=== PATIENT | male | born 1970 | race Caucasian/White ===

== ENCOUNTER 2021-05-26 09:53 | Outpatient (REF) | payer MEDICAID, SELFPAY ==
--- NOTE | ~2021-05-26 | CT_ITS ---
EXAMINATION: CT ABDOMEN WITH CONTRAST CLINICAL INFORMATION: Chronic pancreatitis. Right upper quadrant pain. COMPARISON: None TECHNIQUE: Contiguous axial thin section helical images of the abdomen were performed following the administration of oral contrast and 85 mL of Omnipaque 350 intravenous contrast. The data set was reformatted in the coronal and sagittal planes and reviewed on an independent workstation. This CT examination was performed using dose optimization techniques as appropriate, variously including the following: *Automated exposure control *Adjustment of mA and/or kV according to patient size (this includes techniques or standardized protocols for targeted exams where dose is matched to indication/reason for exam; i.e. extremities or head) *Use of iterative reconstruction technique DLP: 161 mGy-cm FINDINGS: LUNG BASES: Unremarkable LIVER, GALLBLADDER, AND BILIARY TREE: There is a small calcification in the peripheral lateral segment of the left lobe of the liver. The liver is otherwise unremarkable. The gallbladder is unremarkable. There is no biliary duct dilatation. PANCREAS: There is enlargement and edema of the head of the pancreas. There is stranding of the surrounding fat and small amount of fluid. Findings are suggestive of acute pancreatitis. There is a 2.1 cm simple appearing cyst in the neck of the pancreas. This may represent a pseudocyst. The pancreas is otherwise unremarkable. The main pancreatic duct does not appear dilated. SPLEEN: Unremarkable ADRENAL GLANDS AND KIDNEYS: Unremarkable BOWEL LOOPS: There is stool in the colon questionable for constipation. There is mild wall thickening of the duodenum adjacent to the head of the pancreas. This is probably reactive related to pancreatitis. Small and large bowel is otherwise unremarkable. The appendix is unremarkable. LYMPH NODES: Unremarkable VASCULAR: There is an IVC filter. The top of the filter is at the top of the L2 vertebral body above the renal vein. Vascular structures are otherwise unremarkable. The splenic vein is patent. BONES: There is orthopedic hardware seen in the pelvis. CT/CT abdomen w con IMPRESSION: Acute pancreatitis of the head of the pancreas. 2.1 cm cyst in the neck of the pancreas. Normal caliber main pancreatic duct. Findings will be communicated by the [place] work flow manager career Benjie Vázquez.
[2021-05-26] MEDS: iohexoL 350 MG/ML 100 ML INFUS..BTL IV (12:24)
== END 2021-05-26 09:54 | disposition home or self-care (01) ==
LOC: HO.CT 09:53
PROVIDERS: Visit Provider Nurse Practitioner Family
DX: F10.20 Alcohol dependence, uncomplicated (principal); G89.21 Chronic pain due to trauma; K86.0 Alcohol-induced chronic pancreatitis
CPT/HCPCS: 74160; Q9967

== ENCOUNTER 2022-03-17 10:28 | Outpatient (REF) | payer MEDICAID, SELFPAY ==
--- NOTE | ~2022-03-17 | MM_ITS ---
EXAMINATION: BONE DENSITOMETRY CLINICAL INDICATION: Other chronic pancreatitis. COMPARISON: None (current study represents initial baseline exam). TECHNIQUE: Using a [employer] DXA System (software version: 13.1) manufactured by [employer], dual-energy x-ray absorptiometry was performed of the lumbar spine and right hip. The images are of good technical quality. Summary results are attached. FINDINGS: AP SPINE L1-L4: BMD 1.080 g/cm2, Z-score -0.5, T-score -1.2, osteopenia. RIGHT FEMUR, NECK: BMD 0.924 g/cm2, Z-score -0.2, T-score -1.1, osteopenia. RIGHT FEMUR, TOTAL: BMD 0.920 g/cm2, Z-score -0.6, T-score -1.3, osteopenia. IDENTIFIED RISK FACTORS: Height loss, low calcium intake, tobacco use (current smoker). HISTORY OF FRACTURE: None listed. MEDICATIONS: Calcium supplements or multivitamin, vitamin D. MM/XR DEXA axial skeleton IMPRESSION: 1. DIAGNOSIS: Osteopenia based on the lowest T-score value of -1.3 in the total femur applying World Health Organization criteria. 2. 10-YEAR FRACTURE RISK PREDICTION, FRAX: Major osteoporotic fracture (clinical spine, forearm, hip or shoulder) 1.8%. Hip fracture 0.2%. 3. Treatment Recommendations: NOF guidelines recommend consideration for treatment in postmenopausal women and men age 50 and older presenting with the following: -A hip or vertebral (clinical or morphometric) fracture. -T-score less than or equal to -2.5 at the femoral neck or spine after appropriate evaluation to exclude secondary causes. -Low bone mass at the hip or spine and a 10-year fracture probability by FRAX of greater than or equal to 3% for hip fracture or greater than or equal to 20% for major osteoporotic fracture based on the [place] adapted WHO algorithm. 4. Other Recommendations: All treatment decisions require clinical judgment and consideration of individual patient factors, including patient preferences, comorbidities, previous drug use, risk factors not captured in the FRAX model (e.g. frailty, falls, vitamin D deficiency, increased bone turnover, interval significant decline in bone density) and possible under or overestimation of fracture risk by FRAX. Additional medical evaluation for secondary cause of low bone mineral density may be appropriate. FUTURE SCAN RECOMMENDATION: People with diagnosed cases of osteoporosis or at high risk for fracture should have regular bone mineral density tests. For patients eligible for Medicare, routine testing is allowed once every 2 years. The testing frequency can be increased to one year for patients who have rapidly progressing disease, those who are receiving or discontinuing medical therapy to restore bone mass, or have additional risk factors.
== END 2022-03-17 10:29 | disposition home or self-care (01) ==
LOC: HO.MAMMO 10:28
PROVIDERS: PCP Nurse Practitioner Family; Visit Provider Nurse Practitioner Family
DX: Z13.820 Encounter for screening for osteoporosis (principal); K86.1 Other chronic pancreatitis; F17.200 Nicotine dependence, unspecified, uncomplicated
CPT/HCPCS: 77080

== ENCOUNTER 2022-04-21 10:38 | Emergency (ER) | payer MEDICAID, SELFPAY ==
[2022-04-21 11:08] VITALS: BP 134/68; PULSE 63; RESP 18; TEMP 36.4; O2SAT 98; BMI 24.1
[2022-04-21 11:19] LABS: MANUAL DIFF FLAG NO
[2022-04-21 11:21] LABS: Basophils Percent Auto 0.5 % (0-2); Eosinophils Absolute Auto 0.3 X10*3/uL (0.0-0.4); Eosinophils Percent Auto 3.5 % (0-4); Hematocrit 42.4 % (42.0-52.0); Hemoglobin 14.3 g/dl (14.0-18.0); Imm Gran Abs Auto 0.02 X10*3/uL (0.00-0.03); Imm Gran Pct Auto 0.2 % (0.0-0.4); Lymphocytes Absolute Auto 2.8 X10*3/uL (1.2-4.9); Lymphocytes Percent Auto 33.3 % (20-40); Mean Corpuscular HGB Conc 33.7 g/dl (31.0-36.0); Mean Corpuscular Hemoglobin 29.3 pg (27.0-33.0); Mean Corpuscular Volume 86.9 fL (80.0-98.0); Mean Platelet Volume 10.1 fL (9.4-12.4); Monocytes Absolute Auto 0.5 X10*3/uL (0.1-1.2); Monocytes Percent Auto 5.7 % (2-11); Neutrophils Absolute Auto 4.7 x10*3/uL (2.0-8.3); Neutrophils Percent Auto 56.8 % (45-73); Platelet Count 264 X10*3/uL (160-400); Red Blood Count 4.88 X10*6/uL (4.60-5.80); Red Cell Distribution Width 15.9 % (11.0-16.0); White Blood Count 8.3 X10*3/uL (4.8-10.8)
[2022-04-21 11:32] LABS: Appearance Urine Clear; Color Urine Yellow; Glucose Urine UA Negative (Negative); Leukocyte Esterase Urine Negative (Negative); Nitrite Urine Negative (Negative); Urine Blood Negative (Negative); Urine Ketones Negative (Negative); Urine Protein Negative (Neg-Trace)
[2022-04-21 11:41] LABS: Alanine Aminotransferase 13 U/L (0-40); Alkaline Phosphatase 97 U/L (39-117); Anion Gap 13 (12-20); Aspartate Amino Transferase 14 U/L (5-37); Bilirubin Direct 0.2 mg/dL (0.0-0.5); Bilirubin Total 0.5 mg/dL (0.0-1.0); Blood Urea Nitrogen 11 mg/dL (9-16); Calcium 9.1 mg/dL (8.4-10.2); Carbon Dioxide 27 mmol/L (22-29); Chloride 107 mmol/L (96-108); Creatinine Clr Calc Pharmacy 78.4; Estimated Glomerular Filt Rate > 60; Glucose Random 116 mg/dL (60-115); Lipase 249 U/L (8-78); Potassium 4.7 mmol/L (3.3-5.1); Sodium 142 mmol/L (135-145); Total Protein 6.6 g/dL (6.5-8.0)
== END 2022-04-21 15:01 | disposition left against medical advice (07) ==
PROVIDERS: Emergency Provider Emergency Medicine
DX: K85.90 Acute pancreatitis without necrosis or infection, unspecified (principal); Z20.822 Contact with and (suspected) exposure to COVID-19; Z79.899 Other long term (current) drug therapy
CPT/HCPCS: 36415; 80048; 80076; 81003; 83690; 85025; 99282; 99283

== ENCOUNTER 2022-09-29 16:34 | Inpatient (IN) | payer MEDICAID, SELFPAY ==
--- NOTE | ~2022-09-29 | CT_ITS ---
EXAMINATION: CT ABDOMEN AND PELVIS WITH CONTRAST CLINICAL INFORMATION: Multiple large pseudocyst. Evaluate accessibility off pseudocyst for drainage through the stomach. COMPARISON: CT abdomen pelvis without contrast 09/29/2022. TECHNIQUE: Multidetector volumetric images were obtained from the superior aspect of the liver through the pubic symphysis following administration 85 mL of Omnipaque 350 intravenous contrast. Sagittal and coronal reformatted images were obtained on the technologist's workstation. Oral contrast: No This CT examination was performed using dose optimization techniques as appropriate, variously including the following: *Automated exposure control *Adjustment of mA and/or kV according to patient size (this includes techniques or standardized protocols for targeted exams where dose is matched to indication/reason for exam; i.e. extremities or head) *Use of iterative reconstruction technique DLP: 360 mGy-cm. FINDINGS: LUNG BASES: The visualized lung bases are unremarkable. LIVER, GALLBLADDER, AND BILIARY TREE: The liver is normal in size, shape, and attenuation. No focal hepatic lesion or biliary ductal dilatation is present. The gallbladder is unremarkable with no evidence of radiopaque gallstones, gallbladder wall thickening, or obvious pericholecystic inflammatory changes. PANCREAS: Again visualized is analyzed head and neck of the pancreas. There is a large pseudocyst in the neck of the pancreas measuring 5.7 x 6.0 cm on axial image 22/3. This pseudocyst lies posterior to the body of the stomach and a drainable with endoscopy. A second lobulated pseudocyst in the head of the pancreas is stable and a flexible through the second third segment of the duodenum for drainage. There is diffuse calcification in the head and the body of the pancreas suggestive chronic pancreatitis. There are smaller cystic areas seen in the body and the tail of the pancreas better visualized on the present exam with contrast. The pancreas is enlarged with no peripancreatic fat stranding seen to suspect any acute pancreatitis mild thick rind is seen around the pancreas likely old. There is focal pancreatic ductal prominence adjacent to the pseudocyst in the neck of gallbladder on axial image 26/3. SPLEEN: Unremarkable. ADRENAL GLANDS: Unremarkable. KIDNEYS AND URETERS: The kidneys are normal in size, shape, and attenuation. No hydronephrosis, hydroureter, or calculi seen. No perinephric stranding. BLADDER: Unremarkable. GASTROINTESTINAL TRACT: There is scattered stool and oral contrast seen throughout the colon consistent moderate constipation. The small bowel loops are normal caliber. Appendix is not seen. No free air or free fluid seen. ABDOMINAL WALL: No significant hernia is appreciated. LYMPH NODES: Normal. VASCULAR: Unremarkable. PELVIC VISCERA: Unremarkable. OSSEOUS STRUCTURES: There is mild degenerative disc changes with vacuum disc phenomena L5-S1 disc level. No aggressive lytic or sclerotic process seen. There plate and screws for an old healed left pelvic wall fracture. Is lateral CT/CT abdomen pelvis w IV con IMPRESSION: Multiple large pseudocyst in the neck and the head of the pancreas is diffusely accessible via endoscopy through the stomach. Overall no change in the size of the pseudocyst from the last CT. There is a thick rind of tissue around the pancreas with calcification in the body of pancreas suggesting pancreatitis. No evidence of acute pancreatitis. Moderate constipation. Guidelines were followed.
--- NOTE | ~2022-09-29 | CT_ITS ---
EXAMINATION: CT ABDOMEN AND PELVIS WITHOUT CONTRAST CLINICAL INFORMATION: Abdominal pain. COMPARISON: CT abdomen and pelvis 05/26/2021. TECHNIQUE: Multidetector volumetric imaging was performed from the superior aspect of the liver through the pubic symphysis. Sagittal and coronal reformatted images were obtained on the technologist's workstation. This CT examination was performed using dose optimization techniques as appropriate, variously including the following: *Automated exposure control. *Adjustment of mA and/or kV according to patient size (this includes techniques or standardized protocols for targeted exams where dose is matched to indication/reason for exam; i.e. extremities or head). *Use of iterative reconstruction technique. DLP: 362 mGy-cm FINDINGS: LUNG BASES: The lung bases are clear. Heart size is normal. LIVER, GALLBLADDER, AND BILIARY TREE: The liver is normal in size, shape, and attenuation. No focal hepatic lesion or biliary ductal dilatation is present. The gallbladder is unremarkable with no evidence of radiopaque gallstones, gallbladder wall thickening, or obvious pericholecystic inflammatory changes. PANCREAS: There is a large pseudocyst in the neck of the pancreas measuring 5.8 x 6.7 cm and peripheral calcification. There is a second larger pseudocyst in the head of the pancreas measuring 5.3 x 4.7 cm. Smaller exophytic pseudocysts are seen along the head of the pancreas as well. There is scattered calcifications seen throughout the enlarged pancreatic body. No peripancreatic fluid collection or fat stranding seen to suspect superimposed acute pancreatitis. The cyst in the body of the pancreas previously measured 2.1 cm. There is a pseudocyst in the head of the pancreas and small exophytic cyst along its wall are new. Extensive calcification along the pancreatic cyst in the body of the pancreas are also new. SPLEEN: Unremarkable. ADRENAL GLANDS: Unremarkable. KIDNEYS AND URETERS: The kidneys are normal in size, shape, and attenuation. No hydronephrosis, hydroureter, or calculi seen. No perinephric stranding. BLADDER: Unremarkable. GASTROINTESTINAL TRACT: There is mild thickening seen in the second and third segment of the duodenum likely reactionary chronic changes to pancreatic pseudocyst. Underlying dural inflammatory process is not excluded. Rest of the small bowel loops are normal caliber. There is a large amount of stool in the colon. No obstruction, free air or free fluid seen. ABDOMINAL WALL: No significant hernia is appreciated. LYMPH NODES: There are small shotty lymph nodes in the peripancreatic region likely post inflammatory. They measure 1 cm. VASCULAR: There is a infrarenal IVC filter. Abdominal aorta is of normal caliber. No retroperitoneal hematoma noted. PELVIC VISCERA: The prostate gland is enlarged. No free fluid seen. OSSEOUS STRUCTURES: There is an old fracture of the left hemipelvis with hardware. This results in mild deformity of the left hemipelvis, pubic and ischial bones. CT/CT abdomen pelvis wo IV con IMPRESSION: 1. Significant constipation. 2. There are multiple large pseudocysts in the pancreatic head and the neck. Previously seen small 2 cm cyst in the neck of the pancreas has now increased measuring 5.8 cm. There is a larger pseudocyst visualized in the head of the pancreas with small exophytic cyst adjacent to it. Head and the body of the pancreas have increased in size. There are scattered calcifications in the body of the pancreas from chronic pancreatitis. No haziness is seen surrounding the pancreas. I suspect acute pancreatitis. However, correlation with serum amylase is recommended. If patient has increasing pain, an MRI of the pancreas can be performed to exclude acute pancreatitis or underlying pancreatic lesion. 3. Likely post inflammatory peripancreatic lymph nodes. Fleischner guidelines were followed.
[2022-09-29 17:00] VITALS: BP 154/107; PULSE 95; RESP 20; TEMP 36.6; O2SAT 100
--- NOTE | 2022-09-29 17:01 | ED.GENADULT ---
HPI - General Adult General Chief complaint: Abdominal Pain Stated complaint: Abdominal Pain Time Seen by Provider: 09/29/22 22:11 Related Data Home Medications Medication Instructions Recorded Confirmed uxzflebhdo-oaitxpnpiqpes-omdkoxew 1 tab PO Q12H PRN Pain 09/30/22 09/30/22 50 mg-325 mg-40 mg tablet cyclobenzaprine 5 mg tablet 1 tab PO Q8H PRN muscle spasm 09/30/22 09/30/22 gabapentin 400 mg capsule 1 cap PO TID 09/30/22 09/30/22 omeprazole 20 mg capsule,delayed 1 cap PO BID 09/30/22 09/30/22 release Previous Rx's Medication Instructions Recorded docusate sodium 100 mg capsule 200 mg PO DAILY #20 caps 10/03/22 (Colace) crufio-cqxydkdp-tharhbl 1 cap PO TIDWM #60 caps 10/03/22 24,000-76,000-120,000 unit capsule,delayed rel (Creon) magnesium hydroxide 400 mg/5 mL 30 ml PO DAILY PRN Constipation 10/03/22 oral suspension (Milk of Magnesia) #355 mL morphine 4 mg/mL intravenous 4 mg IVPUSH Q4H PRN Pain, Severe 10/03/22 syringe (Pain Scale 7-10) #6 mL polyethylene glycol 3350 17 gram 17 g PO DAILY #30 ea 10/03/22 oral powder packet Allergies Allergy/AdvReac Type Severity Reaction Status Date / Time No Known Allergies Allergy Verified 04/21/22 11:11 [facility] Past Medical History Medical History GERD (gastroesophageal reflux disease) Pancreatitis Social History Social History Household Members: Significant Other Housing: Apartment Do you presently have visiting nurse or other home services: No Alcohol intake: former Patient Tobacco Use Status: Former Tobacco user Tobacco use type: Cigarette e-Cigarette/Vaping Use: Never Used Second Hand Smoke Exposure: No Substance Use Type: Marijuana service: No Current occupational status: disabled Physical Exam ED Vital Signs: Vital Signs - 24 hr 09/29/22 17:00 Temperature 98 F Pulse Rate 95 Respiratory Rate 20 Blood Pressure 154/107 H Pulse Oximetry 100 Oxygen Delivery Method Room Air BMI result Body Mass Index 20.0 Course Course Course Narrative: 52-year-old male presents for evaluation of upper abdominal pain for 2. He reports he had nausea and vomiting earlier but this has since resolved. Reports she has not had any bubbling last 2 weeks but endorses that he continues to pass gas. Denies any history of previous abdominal surgeries. Does endorse a history of previous pancreatitis. He denies any active alcohol abuse. Plan for labs, CT abdomen and pelvis further workup as indicated Medications Administered Discontinued Medications Generic Name Dose Route Start Last Admin Trade Name Rishabh PRN Reason Stop Dose Admin Acetaminophen 650 mg 09/29/22 23:14 10/03/22 16:24 Acetaminophen 325 Mg Tablet PO 650 mg Q6H PRN Administration Pain, Mild (Pain Scale 1-3) Lipase/Protease/Amylase 1 cap 10/02/22 12:00 10/03/22 17:48 Lipase/Prot/Amylase 24/76/120k 1 Cap Capsule.Dr SÁNCHEZ Not Given TIDWM KAT Docusate Sodium 200 mg 10/02/22 21:00 10/02/22 21:08 Docusate Sodium 100 Mg Capsule PO 200 mg BEDTIME KAT Administration Docusate Sodium 100 mg 09/30/22 21:00 10/01/22 21:46 Docusate Sodium 100 Mg Capsule PO 100 mg BEDTIME KAT Administration Enoxaparin Sodium 40 mg 09/29/22 23:15 10/02/22 22:27 Enoxaparin Sodium 40 Mg/0.4 Ml Syringe SUBCUT 40 mg Q24H KAT Administration Gabapentin 400 mg 09/30/22 15:00 10/03/22 19:53 Gabapentin 400 Mg Capsule PO 400 mg TID KAT Administration Hydromorphone HCl 0.5 mg 09/29/22 22:49 09/29/22 23:13 Hydromorphone Hcl 0.5 Mg/0.5 Ml Syringe IVPUSH 09/29/22 22:50 0.5 mg ONCE ONE Administration Protocol Sodium Chloride 1,000 mls @ 999 mls/hr 09/29/22 23:00 09/30/22 16:45 Ns IV 09/30/22 00:00 Infused .Q1H1M KAT Infusion Sodium Chloride 1,000 mls @ 100 mls/hr 09/29/22 23:30 10/02/22 05:46 Ns IVCONT Infused .Q10H KAT Infusion Iohexol 85 ml 10/02/22 15:10 10/02/22 15:10 Iohexol 350 Mg/Ml 100 Ml Infus..Btl IV 10/02/22 15:11 85 ml ONCE ONE Administration Magnesium Hydroxide 30 ml 10/03/22 16:41 10/03/22 17:48 Milk Of Magnesia 30 Ml Oral.Susp PO 10/03/22 16:42 30 ml ONCE ONE Administration Melatonin 6 mg 09/29/22 23:14 10/02/22 21:10 Melatonin 3 Mg Tablet PO 6 mg BEDTIME PRN Administration Insomnia Morphine Sulfate 4 mg 10/03/22 15:32 10/03/22 19:51 Morphine Sulfate 4 Mg/Ml Cartridge IVPUSH 4 mg Q4H PRN Administration Pain, Severe (Pain Scale 7-10) Protocol Morphine Sulfate 4 mg 09/29/22 23:16 10/02/22 10:17 Morphine Sulfate 4 Mg/Ml Cartridge IVPUSH 4 mg Q6H PRN Administration Pain, Severe (Pain Scale 7-10) Protocol Omeprazole 20 mg 09/30/22 16:30 10/03/22 16:21 Omeprazole 20 Mg Capsule.Dr PO 20 mg BID@0630,1630 [facility] Administration Ondansetron HCl 4 mg 09/29/22 23:14 09/30/22 09:46 Ondansetron Hcl 4 Mg/2 Ml Vial IVPUSH 4 mg Q8H PRN Administration Nausea and Vomiting Oxycodone HCl 2.5 mg 10/02/22 15:43 10/02/22 16:29 Oxycodone Hcl Immed Release 5 Mg Tablet PO 2.5 mg Q6H PRN Administration Pain, Severe (Pain Scale 7-10) Oxycodone HCl 5 mg 10/02/22 19:00 10/03/22 04:16 Oxycodone Hcl Immed Release 5 Mg Tablet PO 5 mg Q6H PRN Administration Pain, Severe (Pain Scale 7-10) Oxycodone HCl 10 mg 10/03/22 10:03 10/03/22 14:23 Oxycodone Hcl Immed Release 5 Mg Tablet PO 10 mg Q4H PRN Administration Pain, Severe (Pain Scale 7-10) Polyethylene Glycol 17 gm 10/02/22 15:45 10/03/22 09:33 Polyethylene Glycol 3350 17 Gm Powd.Pack PO Not Given DAILY KAT Sodium Chloride 3 ml 09/30/22 00:00 10/03/22 16:21 0.9 % Sodium Chloride Flush 3 Ml Syringe IVFLUSH 3 ml QSHIFT [facility] Administration Medical Decision Making Lab Data 10/01/22 06:07 10/02/22 06:22 Labs: Lab Results 09/29/22 09/29/22 09/29/22 Range/Units 02:28 18:03 18:03 WBC 11.9 H (4.8-10.8) X10*3/uL RBC 5.09 (4.60-5.80) X10*6/uL Hgb 15.1 (14.0-18.0) g/dl Hct 44.1 (42.0-52.0) % MCV 86.6 (80.0-98.0) fL MCH 29.7 (27.0-33.0) pg MCHC 34.2 (31.0-36.0) g/dl RDW 14.0 (11.0-16.0) % Plt Count 291 (160-400) X10*3/uL MPV 12.6 H (9.4-12.4) fL Immature Gran % (Auto) 0.3 (0.0-0.4) % Neut % (Auto) 68.4 (45-73) % Lymph % (Auto) 22.1 (20-40) % Larue % (Auto) 5.9 (2-11) % Eos % (Auto) 2.9 (0-4) % Baso % (Auto) 0.4 (0-2) % Lymph # (Auto) 2.6 (1.2-4.9) X10*3/uL Larue # (Auto) 0.7 (0.1-1.2) X10*3/uL Eos # (Auto) 0.4 (0.0-0.4) X10*3/uL Baso # (Auto) 0.1 (0.0-0.2) X10*3/uL Abs Immat Gran (auto) 0.04 H (0.00-0.03) X10*3/uL Absolute Neuts (auto) 8.2 (2.0-8.3) x10*3/uL Absolute Nucleated RBC 0.000 (0.0-0.012) X10*3/uL Nucleated RBC % (auto) 0.0 (0.0-0.2) /100WBC Sodium 137 (135-145) mmol/L Potassium 4.3 (3.3-5.1) mmol/L Chloride 99 (96-108) mmol/L Carbon Dioxide 27 (22-29) mmol/L Anion Gap 15 (12-20) BUN 6 L (9-16) mg/dL Creatinine 0.76 (0.5-1.4) mg/dL Estim Creat Clear Calc 89.5 Estimated GFR > 60 Random Glucose 111 (60-115) mg/dL Lactic Acid 0.8 (0.5-2.0) mmol/L Calcium 9.3 (8.4-10.2) mg/dL Magnesium 1.9 (1.6-2.6) mg/dL Total Bilirubin 0.7 (0.0-1.0) mg/dL AST 27 (5-37) U/L ALT 157 H (0-40) U/L Alkaline Phosphatase 324 H (39-117) U/L Total Protein 6.8 (6.5-8.0) g/dL Albumin 3.5 (3.5-5.0) g/dL Triglycerides mg/dL Lipase 463 H (8-78) U/L Urine Color Urine Appearance Urine pH (5.0-9.0) Ur Specific [place] (1.005-1.025) Urine Protein (Neg-Trace) mg/dL Urine Glucose (UA) (Negative) mg/dL Urine Ketones (Negative) mg/dL Urine Blood (Negative) Urine Nitrite (Negative) Ur Leukocyte Esterase (Negative) Urine RBC (0-2) /HPF Urine WBC (0-5) /HPF Ur Squamous Epith Cells (0-2) /HPF Urine Bacteria (None Seen) Hyaline Casts (0-2) /LPF Urine Opiates Screen (Not Detect) Urine Fentanyl Screen (Not Detect) Ur Barbiturates Screen (Not Detect) Ur Phencyclidine Scrn (Not Detect) Ur Amphetamines Screen (Not Detect) U Benzodiazepines Scrn (Not Detect) Urine Cocaine Screen (Not Detect) U Marijuana (THC) Screen (Not Detect) Ethyl Alcohol mg/dL 09/29/22 09/29/22 09/29/22 Range/Units 18:03 22:44 22:44 WBC (4.8-10.8) X10*3/uL RBC (4.60-5.80) X10*6/uL Hgb (14.0-18.0) g/dl Hct (42.0-52.0) % MCV (80.0-98.0) fL MCH (27.0-33.0) pg MCHC (31.0-36.0) g/dl RDW (11.0-16.0) % Plt Count (160-400) X10*3/uL MPV (9.4-12.4) fL Immature Gran % (Auto) (0.0-0.4) % Neut % (Auto) (45-73) % Lymph % (Auto) (20-40) % Larue % (Auto) (2-11) % Eos % (Auto) (0-4) % Baso % (Auto) (0-2) % Lymph # (Auto) (1.2-4.9) X10*3/uL Larue # (Auto) (0.1-1.2) X10*3/uL Eos # (Auto) (0.0-0.4) X10*3/uL Baso # (Auto) (0.0-0.2) X10*3/uL Abs Immat Gran (auto) (0.00-0.03) X10*3/uL Absolute Neuts (auto) (2.0-8.3) x10*3/uL Absolute Nucleated RBC (0.0-0.012) X10*3/uL Nucleated RBC % (auto) (0.0-0.2) /100WBC Sodium (135-145) mmol/L Potassium (3.3-5.1) mmol/L Chloride (96-108) mmol/L Carbon Dioxide (22-29) mmol/L Anion Gap (12-20) BUN (9-16) mg/dL Creatinine (0.5-1.4) mg/dL Estim Creat Clear Calc Estimated GFR Random Glucose (60-115) mg/dL Lactic Acid (0.5-2.0) mmol/L Calcium (8.4-10.2) mg/dL Magnesium (1.6-2.6) mg/dL Total Bilirubin (0.0-1.0) mg/dL AST (5-37) U/L ALT (0-40) U/L Alkaline Phosphatase (39-117) U/L Total Protein (6.5-8.0) g/dL Albumin (3.5-5.0) g/dL Triglycerides 84 mg/dL Lipase (8-78) U/L Urine Color Dark Yellow Urine Appearance Cloudy Urine pH 6.5 (5.0-9.0) Ur Specific [place] 1.025 (1.005-1.025) Urine Protein 30 (1+) H (Neg-Trace) mg/dL Urine Glucose (UA) Negative (Negative) mg/dL Urine Ketones 80 (Negative) mg/dL Urine Blood Negative (Negative) Urine Nitrite Negative (Negative) Ur Leukocyte Esterase Trace H (Negative) Urine RBC 3-5 H (0-2) /HPF Urine WBC 0-5 (0-5) /HPF Ur Squamous Epith Cells 0-2 (0-2) /HPF Urine Bacteria None Seen (None Seen) Hyaline Casts 0-2 (0-2) /LPF Urine Opiates Screen Not Detected (Not Detect) Urine Fentanyl Screen Not Detected (Not Detect) Ur Barbiturates Screen POSITIVE H (Not Detect) Ur Phencyclidine Scrn Not Detected (Not Detect) Ur Amphetamines Screen Not Detected (Not Detect) U Benzodiazepines Scrn Not Detected (Not Detect) Urine Cocaine Screen Not Detected (Not Detect) U Marijuana (THC) Screen POSITIVE H (Not Detect) Ethyl Alcohol < 10 mg/dL Discharge Plan Discharge Clinical Impression: Pancreatitis Patient Disposition: Admitted As Inpatient Interventions: Admission Worksheet (ED) Last Done: 09/30/22 16:23 Discharge Date/Time: 09/30/22 16:23
[2022-09-29 18:13] LABS: MANUAL DIFF FLAG NO
[2022-09-29 18:31] LABS: Lactic Acid 0.8 mmol/L (0.5-2.0)
[2022-09-29 18:35] LABS: Alanine Aminotransferase 157 U/L (0-40); Albumin Level 3.5 g/dL (3.5-5.0); Alkaline Phosphatase 324 U/L (39-117); Anion Gap 15 (12-20); Aspartate Amino Transferase 27 U/L (5-37); Bilirubin Total 0.7 mg/dL (0.0-1.0); Blood Urea Nitrogen 6 mg/dL (9-16); Calcium 9.3 mg/dL (8.4-10.2); Carbon Dioxide 27 mmol/L (22-29); Chloride 99 mmol/L (96-108); Creatinine Clr Calc Pharmacy 89.5; Estimated Glomerular Filt Rate > 60; Ethanol < 10 mg/dL; Glucose Random 111 mg/dL (60-115); Magnesium 1.9 mg/dL (1.6-2.6); Potassium 4.3 mmol/L (3.3-5.1); Sodium 137 mmol/L (135-145); Total Protein 6.8 g/dL (6.5-8.0); Triglycerides 84 mg/dL
[2022-09-29 18:46] LABS: Basophils Absolute Auto 0.1 X10*3/uL (0.0-0.2); Basophils Percent Auto 0.4 % (0-2); Eosinophils Absolute Auto 0.4 X10*3/uL (0.0-0.4); Eosinophils Percent Auto 2.9 % (0-4); Hematocrit 44.1 % (42.0-52.0); Hemoglobin 15.1 g/dl (14.0-18.0); Imm Gran Abs Auto 0.04 X10*3/uL (0.00-0.03); Imm Gran Pct Auto 0.3 % (0.0-0.4); Lymphocytes Absolute Auto 2.6 X10*3/uL (1.2-4.9); Lymphocytes Percent Auto 22.1 % (20-40); Mean Corpuscular HGB Conc 34.2 g/dl (31.0-36.0); Mean Corpuscular Hemoglobin 29.7 pg (27.0-33.0); Mean Corpuscular Volume 86.6 fL (80.0-98.0); Mean Platelet Volume 12.6 fL (9.4-12.4); Monocytes Absolute Auto 0.7 X10*3/uL (0.1-1.2); Monocytes Percent Auto 5.9 % (2-11); Neutrophils Absolute Auto 8.2 x10*3/uL (2.0-8.3); Neutrophils Percent Auto 68.4 % (45-73); Platelet Count 291 X10*3/uL (160-400); Red Blood Count 5.09 X10*6/uL (4.60-5.80); White Blood Count 11.9 X10*3/uL (4.8-10.8)
[2022-09-29 18:48] LABS: Lipase 463 U/L (8-78)
[2022-09-29 21:57] VITALS: BP 145/99; PULSE 91; RESP 16; TEMP 36.7; O2SAT 98
[2022-09-29 22:49] LABS: Appearance Urine Cloudy; Color Urine Dark Yellow; Glucose Urine UA Negative (Negative); Leukocyte Esterase Urine Trace (Negative); Nitrite Urine Negative (Negative); PH 6.5 (5.0-9.0); Specific Gravity - Urine 1.025 (1.005-1.025); UMIC TRIGGER UACC YES; Urine Blood Negative (Negative); Urine Ketones 80 mg/dL (Negative); Urine Protein 30 (1+) mg/dL (Neg-Trace)
[2022-09-29 22:54] LABS: Bacteria Urine None Seen (None Seen); Hyaline Casts Urine 0-2 /LPF (0-2); Squamous Epithelial Cell Urine 0-2 /HPF (0-2); WBC Urine 0-5 /HPF (0-5)
[2022-09-29 23:13] VITALS: RESP 18
[2022-09-29] MEDS: HYDROmorphone HCl 0.5 MG/0.5 ML SYRINGE IVPUSH (23:13)
[2022-09-29] MEDS: 0.9 % Sodium Chloride 1,000 ML 999 ML IV (23:13)
--- NOTE | 2022-09-29 23:17 | P.HPHOSP_ITS ---
History of Present Illness Date of Service: 09/29/22 Chief Complaint: Abdominal Pain This is a 52-year-old male with pertinent history of gastroesophageal reflux disease, history of alcohol induced pancreatitis presents to the emergency department for evaluation of abdominal pain. Patient states he has had epigas tric abdominal pain for about 7-10 days now. It is constant, worse with p.o. intake, no relieving factors, radiating to the sides and associated with nausea. Patient is unable to tolerate any p.o. intake due to nausea and pain. States his last alcohol use was 7 months ago. No fever, chills. Patient denies chest discomfort, palpitations, shortness of breath, changes in urinary or bowel habits. In the emergency department, CT with pseudocyst and concerning for pancreatitis. Lipase was elevated Review of Systems Constitutional: Constitutional: Reports lethargy and Reports malaise Cardiovascular: Cardiovascular: Reports no additional cardiovascular complaints Respiratory: Respiratory: Reports no additional respiratory complaints Gastrointestinal: Gastrointestinal: Reports abdominal pain, Reports nausea and Reports vomiting Genitourinary: Genitourinary: Reports no additional male genitourinary complaints [facility] Medical History GERD (gastroesophageal reflux disease) Pancreatitis Pertinent family history: No family history of CAD Social History Advance Directives: No Advance Directives Information Provided: No Meds Allergies Allergy/AdvReac Type Severity Reaction Status Date / Time No Known Allergies Allergy Verified 04/21/22 11:11 Active Medications: Current Medications Acetaminophen (Acetaminophen 325 Mg Tablet) 650 mg PO Q6H PRN PRN Reason: Pain, Mild (Pain Scale 1-3) Enoxaparin Sodium (Enoxaparin Sodium 40 Mg/0.4 Ml Syringe) 40 mg SUBCUT Q24H KAT Sodium Chloride (Ns) 1,000 mls @ 999 mls/hr IV .Q1H1M KAT Stop: 09/30/22 00:00 Last Admin: 09/29/22 23:13 Dose: 999 mls/hr Melatonin (Melatonin 3 Mg Tablet) 6 mg PO BEDTIME PRN PRN Reason: Insomnia Ondansetron HCl (Ondansetron Hcl 4 Mg/2 Ml Vial) 4 mg IVPUSH Q8H PRN PRN Reason: Nausea and Vomiting Pharmacy Consult (Consult Rx Perform Med Rec) 1 each MISCELLANE ONCE PRN PRN Reason: Consult order Sodium Chloride (0.9 % Sodium Chloride Flush 3 Ml Syringe) 3 ml IVFLUSH QSHIFT COUNT INCLUDES THE [facility] Physical Exam Vital Signs and Narrative: Vital Signs: Last Vital Signs Temp 98.1 F 09/29/22 21:57 Pulse 91 09/29/22 21:57 Resp 18 09/29/22 23:13 BP 145/99 H 09/29/22 21:57 Pulse Ox 98 09/29/22 21:57 O2 Del Method 09/29/22 21:57 BMI result Body Mass Index 20.0 Middle-aged male lying in bed in no distress Neck supple, no JVD Regular rate and rhythm, S1-S2 heard Regular breath sounds bilaterally, no wheezing or crackles appreciated Abdomen with epigastric tenderness, no guarding, no rigidity Patient is awake, alert and oriented to self, place, time and person ; no focal motor deficit Psych: Normal mood No pedal edema Results Labs 09/29/22 02:28 09/29/22 18:03 Labs: Laboratory Results - last 24 hr 09/29/22 09/29/22 09/29/22 02:28 18:03 18:03 MCV 86.6 MCH 29.7 MCHC 34.2 RDW 14.0 Plt Count 291 MPV 12.6 H Immature Gran % (Auto) 0.3 Neut % (Auto) 68.4 Lymph % (Auto) 22.1 Gregory % (Auto) 5.9 Eos % (Auto) 2.9 Baso % (Auto) 0.4 Lymph # (Auto) 2.6 Gregory # (Auto) 0.7 Eos # (Auto) 0.4 Baso # (Auto) 0.1 Abs Immat Gran (auto) 0.04 H Absolute Neuts (auto) 8.2 Absolute Nucleated RBC 0.000 Nucleated RBC % (auto) 0.0 Anion Gap 15 Estim Creat Clear Calc 89.5 Estimated GFR > 60 Random Glucose 111 Lactic Acid 0.8 Calcium 9.3 Magnesium 1.9 Total Bilirubin 0.7 AST 27 ALT 157 H Alkaline Phosphatase 324 H Total Protein 6.8 Albumin 3.5 Triglycerides Lipase 463 H Urine Color Urine Appearance Urine pH Ur Specific [place] Urine Protein Urine Glucose (UA) Urine Ketones Urine Blood Urine Nitrite Ur Leukocyte Esterase Urine RBC Urine WBC Ur Squamous Epith Cells Urine Bacteria Hyaline Casts Ethyl Alcohol 09/29/22 09/29/22 18:03 22:44 MCV MCH MCHC RDW Plt Count MPV Immature Gran % (Auto) Neut % (Auto) Lymph % (Auto) Gregory % (Auto) Eos % (Auto) Baso % (Auto) Lymph # (Auto) Gregory # (Auto) Eos # (Auto) Baso # (Auto) Abs Immat Gran (auto) Absolute Neuts (auto) Absolute Nucleated RBC Nucleated RBC % (auto) Anion Gap Estim Creat Clear Calc Estimated GFR Random Glucose Lactic Acid Calcium Magnesium Total Bilirubin AST ALT Alkaline Phosphatase Total Protein Albumin Triglycerides 84 Lipase Urine Color Dark Yellow Urine Appearance Cloudy Urine pH 6.5 Ur Specific [place] 1.025 Urine Protein 30 (1+) H Urine Glucose (UA) Negative Urine Ketones 80 Urine Blood Negative Urine Nitrite Negative Ur Leukocyte Esterase Trace H Urine RBC 3-5 H Urine WBC 0-5 Ur Squamous Epith Cells 0-2 Urine Bacteria None Seen Hyaline Casts 0-2 Ethyl Alcohol < 10 Imaging Radiologist's Impressions: Impressions Abdomen/Pelvis CT 09/29/22 17:29 IMPRESSION: 1. Significant constipation. 2. There are multiple large pseudocysts in the pancreatic head and the neck. Previously seen small 2 cm cyst in the neck of the pancreas has now increased measuring 5.8 cm. There is a larger pseudocyst visualized in the head of the pancreas with small exophytic cyst adjacent to it. Head and the body of the pancreas have increased in size. There are scattered calcifications in the body of the pancreas from chronic pancreatitis. No haziness is seen surrounding the pancreas. I suspect acute pancreatitis. However, correlation with serum amylase is recommended. If patient has increasing pain, an MRI of the pancreas can be performed to exclude acute pancreatitis or underlying pancreatic lesion. 3. Likely post inflammatory peripancreatic lymph nodes. Fleischner guidelines were followed. Assessment and Plan (1) Pancreatitis: Status: Acute Plan This is a 52-year-old male with pertinent history of gastroesophageal reflux disease, history of alcohol induced pancreatitis presents to the emergency department for evaluation of abdominal pain. #. Acute on chronic pancreatitis with pseudocysts: Continue resuscitation with IV crystalloids. Pain control with IV opioids p.r.n.. Full liquid diet and advance as tolerated. Consulting IR for possible endoscopic drainage of pseudocyst. Triglyceride pending. No gallstones. Obtaining MRI to rule out underlying pancreatic lesion #. GERD: On PPI #. Alcohol use disorder: Patient states he last consumed alcohol about 7 months ago. Ethanol level less than 10. UDS pending Med rec pending DVT prophylaxis: Lovenox 40 mg daily Full code Liquid diet. Advance as tolerated Admit as inpatient and will require two night minimum hospital stay for sandra vargas of acute pancreatitis Time Spent With Patient Time: Total time managing care of this patient today ____ minutes. Quality Stroke Does the patient have a stroke diagnosis?: No VTE Prior VTE?: No VTE Risk Level:: Medical - moderate - high VTE Device Contraindication: Treatment Not Indicated VTE Drug Contraindication: N/A - Med Ordered
--- NOTE | 2022-09-29 23:21 | ED_ITS ---
HPI - Abdominal Pain General Chief Complaint: Abdominal Pain Stated Complaint: Abdominal Pain Time Seen by Provider: 09/29/22 22:11 History of Present Illness HPI narrative: Patient is a 52-year-old male presents today with having abdominal pain. The abdominal pain is diffuse is on ongoing for weeks. Patient denies any nausea vomiting. Positive history of EtOH. Stop drinking 2 years ago. Patient stated that he did not have any nausea vomiting. The pain is somewhat worse with ea ting. Positive passing gas. Patient from home. Positive history of pancreatitis Related Data Allergies Allergy/AdvReac Type Severity Reaction Status Date / Time No Known Allergies Allergy Verified 04/21/22 11:11 Review of Systems Review of Systems Positive abdominal pain Yes all other systems are reviewed and are negative [facility] Past Medical History Attestation statement: The following information was validated with the patient. Social History Social History Advance Directives: No Advance Directives Information Provided: No Physical Exam ED Vital Signs: Vital Signs - 24 hr 09/29/22 17:00 09/29/22 21:57 09/29/22 23:13 Temperature 98 F 98.1 F Pulse Rate 95 91 Respiratory Rate 20 16 18 Blood Pressure 154/107 H 145/99 H Pulse Oximetry 100 98 Oxygen Delivery Method Room Air Room Air BMI result Body Mass Index 20.0 Appearance: Alert. Oriented X3. No acute distress. Eyes: Pupils equal, round and reactive to light. ENT: Pharynx normal. Neck: Normal inspection. Neck supple. No lymph nodes noted. No crepitus CVS: Normal heart rate and rhythm. Pulses normal. Normal S1 and S2 Respiratory: No respiratory distress. Breath sounds normal. No Wheezing. No rales Abdomen: Diffuse abdominal pain. No rigidity. No distention. good BS x4 Skin: Skin warm and dry. Normal skin color. Normal skin turgor. Extremities: No lower extremity edema. Neurovascular intact to all extremities. No Lacerations. No Rash Neuro: Oriented X 3. No motor deficit. No sensory deficit. Moving all extermities. No slurred speech Medical Decision Making Medical Decision Making MDM Narrative: Positive abdominal pain diffuse over the entire abdomen. Differential diagnosis includes abdominal aortic aneurysm, gastritis, constipation, obstruction, abscess, perforation, pancreatitis. Patient's labs showed an elevated lipase that was greater than 3 times normal. Consistent with pancreatitis which patient had in the past. He denies any drinking alcohol. He denies any history of biliary issues. CT scan of the abdomen showed pseudocysts getting worse with signs of pancreatitis likely chronic pancreatitis flare-up. Given pain medication IV fluids. Patient's case discussed with hospitalist team. Will admit patient for further evaluation Differential Diagnosis Differential Diagnoses: The differential diagnosis associated with the presentation includes See above Admission/Observation Consideration of admission/observation: Escalation of care including admission/observation considered Consult Healthcare Provider Management of the patient was discussed with: Hospitalist Lab Data MDM Lab Attestation statement: I reviewed the patient's lab results. 09/29/22 02:28 09/29/22 18:03 Labs: Lab Results 09/29/22 09/29/22 09/29/22 Range/Units 02:28 18:03 18:03 WBC 11.9 H (4.8-10.8) X10*3/uL RBC 5.09 (4.60-5.80) X10*6/uL Hgb 15.1 (14.0-18.0) g/dl Hct 44.1 (42.0-52.0) % MCV 86.6 (80.0-98.0) fL MCH 29.7 (27.0-33.0) pg MCHC 34.2 (31.0-36.0) g/dl RDW 14.0 (11.0-16.0) % Plt Count 291 (160-400) X10*3/uL MPV 12.6 H (9.4-12.4) fL Immature Gran % (Auto) 0.3 (0.0-0.4) % Neut % (Auto) 68.4 (45-73) % Lymph % (Auto) 22.1 (20-40) % [place] % (Auto) 5.9 (2-11) % Eos % (Auto) 2.9 (0-4) % Baso % (Auto) 0.4 (0-2) % Lymph # (Auto) 2.6 (1.2-4.9) X10*3/uL [place] # (Auto) 0.7 (0.1-1.2) X10*3/uL Eos # (Auto) 0.4 (0.0-0.4) X10*3/uL Baso # (Auto) 0.1 (0.0-0.2) X10*3/uL Abs Immat Gran (auto) 0.04 H (0.00-0.03) X10*3/uL Absolute Neuts (auto) 8.2 (2.0-8.3) x10*3/uL Absolute Nucleated RBC 0.000 (0.0-0.012) X10*3/uL Nucleated RBC % (auto) 0.0 (0.0-0.2) /100WBC Sodium 137 (135-145) mmol/L Potassium 4.3 (3.3-5.1) mmol/L Chloride 99 (96-108) mmol/L Carbon Dioxide 27 (22-29) mmol/L Anion Gap 15 (12-20) BUN 6 L (9-16) mg/dL Creatinine 0.76 (0.5-1.4) mg/dL Estim Creat Clear Calc 89.5 Estimated GFR > 60 Random Glucose 111 (60-115) mg/dL Lactic Acid 0.8 (0.5-2.0) mmol/L Calcium 9.3 (8.4-10.2) mg/dL Magnesium 1.9 (1.6-2.6) mg/dL Total Bilirubin 0.7 (0.0-1.0) mg/dL AST 27 (5-37) U/L ALT 157 H (0-40) U/L Alkaline Phosphatase 324 H (39-117) U/L Total Protein 6.8 (6.5-8.0) g/dL Albumin 3.5 (3.5-5.0) g/dL Triglycerides mg/dL Lipase 463 H (8-78) U/L Urine Color Urine Appearance Urine pH (5.0-9.0) Ur Specific Gl[place] (1.005-1.025) Urine Protein (Neg-Trace) mg/dL Urine Glucose (UA) (Negative) mg/dL Urine Ketones (Negative) mg/dL Urine Blood (Negative) Urine Nitrite (Negative) Ur Leukocyte Esterase (Negative) Urine RBC (0-2) /HPF Urine WBC (0-5) /HPF Ur Squamous Epith Cells (0-2) /HPF Urine Bacteria (None Seen) Hyaline Casts (0-2) /LPF Ethyl Alcohol mg/dL 09/29/22 09/29/22 Range/Units 18:03 22:44 WBC (4.8-10.8) X10*3/uL RBC (4.60-5.80) X10*6/uL Hgb (14.0-18.0) g/dl Hct (42.0-52.0) % MCV (80.0-98.0) fL MCH (27.0-33.0) pg MCHC (31.0-36.0) g/dl RDW (11.0-16.0) % Plt Count (160-400) X10*3/uL MPV (9.4-12.4) fL Immature Gran % (Auto) (0.0-0.4) % Neut % (Auto) (45-73) % Lymph % (Auto) (20-40) % [place] % (Auto) (2-11) % Eos % (Auto) (0-4) % Baso % (Auto) (0-2) % Lymph # (Auto) (1.2-4.9) X10*3/uL [place] # (Auto) (0.1-1.2) X10*3/uL Eos # (Auto) (0.0-0.4) X10*3/uL Baso # (Auto) (0.0-0.2) X10*3/uL Abs Immat Gran (auto) (0.00-0.03) X10*3/uL Absolute Neuts (auto) (2.0-8.3) x10*3/uL Absolute Nucleated RBC (0.0-0.012) X10*3/uL Nucleated RBC % (auto) (0.0-0.2) /100WBC Sodium (135-145) mmol/L Potassium (3.3-5.1) mmol/L Chloride (96-108) mmol/L Carbon Dioxide (22-29) mmol/L Anion Gap (12-20) BUN (9-16) mg/dL Creatinine (0.5-1.4) mg/dL Estim Creat Clear Calc Estimated GFR Random Glucose (60-115) mg/dL Lactic Acid (0.5-2.0) mmol/L Calcium (8.4-10.2) mg/dL Magnesium (1.6-2.6) mg/dL Total Bilirubin (0.0-1.0) mg/dL AST (5-37) U/L ALT (0-40) U/L Alkaline Phosphatase (39-117) U/L Total Protein (6.5-8.0) g/dL Albumin (3.5-5.0) g/dL Triglycerides 84 mg/dL Lipase (8-78) U/L Urine Color Dark Yellow Urine Appearance Cloudy Urine pH 6.5 (5.0-9.0) Ur Specific [place] 1.025 (1.005-1.025) Urine Protein 30 (1+) H (Neg-Trace) mg/dL Urine Glucose (UA) Negative (Negative) mg/dL Urine Ketones 80 (Negative) mg/dL Urine Blood Negative (Negative) Urine Nitrite Negative (Negative) Ur Leukocyte Esterase Trace H (Negative) Urine RBC 3-5 H (0-2) /HPF Urine WBC 0-5 (0-5) /HPF Ur Squamous Epith Cells 0-2 (0-2) /HPF Urine Bacteria None Seen (None Seen) Hyaline Casts 0-2 (0-2) /LPF Ethyl Alcohol < 10 mg/dL External Record Review External record reviewed: Inpatient record Prescription Management I considered prescription management with: Pain Medication Chronic Conditions Patient?s care impacted by: Hypertension Social Determinants Patient?s care significantly limited by Social Determinants of Health including: Inadequate housing Medications Administered Generic Name Dose Route Start Last Admin Trade Name Freq PRN Reason Stop Dose Admin Sodium Chloride 1,000 mls @ 999 mls/hr 09/29/22 23:00 09/29/22 23:13 Ns IV 09/30/22 00:00 999 mls/hr .Q1H1M KAT Administration Discontinued Medications Generic Name Dose Route Start Last Admin Trade Name Freq PRN Reason Stop Dose Admin Hydromorphone HCl 0.5 mg 09/29/22 22:49 09/29/22 23:13 Hydromorphone Hcl 0.5 Mg/0.5 Ml Syringe IVPUSH 09/29/22 22:50 0.5 mg ONCE ONE Administration Protocol Discharge Plan Discharge Clinical Impression: Pancreatitis Patient Disposition: Admitted As Inpatient
[2022-09-29 23:28] VITALS: BP 119/76; PULSE 82; RESP 18; TEMP 37.1; O2SAT 97
[2022-09-29] MEDS: 0.9 % Sodium Chloride 1,000 ML 100 ML IVCONT (23:45)
[2022-09-29] MEDS: Enoxaparin Sodium 40 MG/0.4 ML SYRINGE SUBCUT (23:45)
[2022-09-30 01:03] LABS: COVID-19 Test Negative (Negative); IDNOW Serial# 6674DD1D
[2022-09-30 01:04] LABS: Triglycerides 75 mg/dL
[2022-09-30 01:40] LABS: Amphetamine Screen Urine Not Detected (Not Detect); Barbiturates, Urine POSITIVE (Not Detect); Benzodiazepines Screen Urine Not Detected (Not Detect); Cannabinoid Screen Urine POSITIVE (Not Detect); Cocaine Screen Urine Not Detected (Not Detect); Fentanyl, urine Not Detected (Not Detect); Opiate Screen Urine Not Detected (Not Detect); Phencyclidine Screen Urine Not Detected (Not Detect)
[2022-09-30 01:52] VITALS: RESP 16
[2022-09-30] MEDS: ondansetron HCL 4 MG/2 ML VIAL IVPUSH ×2 (01:52→09:46)
[2022-09-30] MEDS: Morphine Sulfate 4 MG/ML CARTRIDGE IVPUSH ×4 (01:52→20:16)
[2022-09-30 06:10] LABS: MANUAL DIFF FLAG NO
[2022-09-30 06:21] LABS: Basophils Absolute Auto 0.1 X10*3/uL (0.0-0.2); Basophils Percent Auto 0.5 % (0-2); Eosinophils Absolute Auto 0.4 X10*3/uL (0.0-0.4); Eosinophils Percent Auto 3.9 % (0-4); Hematocrit 36.1 % (42.0-52.0); Hemoglobin 12.4 g/dl (14.0-18.0); Imm Gran Abs Auto 0.03 X10*3/uL (0.00-0.03); Imm Gran Pct Auto 0.3 % (0.0-0.4); Lymphocytes Absolute Auto 2.8 X10*3/uL (1.2-4.9); Lymphocytes Percent Auto 25.4 % (20-40); Mean Corpuscular HGB Conc 34.3 g/dl (31.0-36.0); Mean Corpuscular Hemoglobin 29.4 pg (27.0-33.0); Mean Corpuscular Volume 85.5 fL (80.0-98.0); Mean Platelet Volume 11.2 fL (9.4-12.4); Monocytes Absolute Auto 0.8 X10*3/uL (0.1-1.2); Neutrophils Absolute Auto 6.9 x10*3/uL (2.0-8.3); Neutrophils Percent Auto 62.9 % (45-73); Platelet Count 410 X10*3/uL (160-400); Red Blood Count 4.22 X10*6/uL (4.60-5.80); Red Cell Distribution Width 14.2 % (11.0-16.0)
[2022-09-30 06:52] LABS: Chloride 104 mmol/L (96-108)
[2022-09-30 06:53] LABS: Anion Gap 14 (12-20); Blood Urea Nitrogen 7 mg/dL (9-16); Calcium 8.1 mg/dL (8.4-10.2); Carbon Dioxide 24 mmol/L (22-29); Creatinine Clr Calc Pharmacy 115.3; Estimated Glomerular Filt Rate > 60; Glucose Random 77 mg/dL (60-115); Potassium 4.2 mmol/L (3.3-5.1); Sodium 138 mmol/L (135-145)
--- NOTE | 2022-09-30 07:23 | P.PNIM_ITS ---
Subjective Subjective Date of Service: 10/01/22 Interval History: being followed for abdominal pain, feeling better with less abdominal discomfort, denies nausea,no vomiting, afraid to eat due to worsening pain, no fevers, no chills, denies recent use of alcohol,no trauma ,no uri sxs, Review of Systems Review of Systems: Yes all other systems are reviewed and are negative Physical Exam Vital Signs: Vital Signs: Last Vital Signs Temp 98.8 F 09/29/22 23:28 Pulse 82 09/29/22 23:28 Resp 16 09/30/22 01:52 BP 119/76 09/29/22 23:28 Pulse Ox 97 09/29/22 23:28 O2 Del Method 09/29/22 23:28 BMI result Body Mass Index 20.0 Const: Other: General awake alert x3, resting comfortably in no acute distress. Neck supple no JVD. CVS regular rate rhythm, Respiratory lungs clear to auscultation, no respiratory distress, no wheeze, no rhonchi. Gastrointestinal epigastric tenderness, bowel sounds audible, no guarding , no rigidity. Extremities no edema. Neuro nonfocal Skin no rash psych appropriate affect Objective Data Active Medications Acetaminophen (Acetaminophen 325 Mg Tablet) 650 mg PO Q6H PRN PRN Reason: Pain, Mild (Pain Scale 1-3) Enoxaparin Sodium (Enoxaparin Sodium 40 Mg/0.4 Ml Syringe) 40 mg SUBCUT Q24H [facility] Last Admin: 09/29/22 23:45 Dose: 40 mg Documented By: ELLE Sodium Chloride (Ns) 1,000 mls @ 100 mls/hr IVCONT .Q10H [facility] Last Admin: 09/29/22 23:45 Dose: 100 mls/hr Documented By: ELLE Melatonin (Melatonin 3 Mg Tablet) 6 mg PO BEDTIME PRN PRN Reason: Insomnia Morphine Sulfate (Morphine Sulfate 4 Mg/Ml Cartridge) 4 mg IVPUSH Q6H PRN; Protocol PRN Reason: Pain, Severe (Pain Scale 7-10) Last Admin: 09/30/22 01:52 Dose: 4 mg Documented By: ELLE Ondansetron HCl (Ondansetron Hcl 4 Mg/2 Ml Vial) 4 mg IVPUSH Q8H PRN PRN Reason: Nausea and Vomiting Last Admin: 09/30/22 01:52 Dose: 4 mg Documented By: ELLE Pharmacy Consult (Consult Rx Perform Med Rec) 1 each MISCELLANE ONCE PRN PRN Reason: Consult order Sodium Chloride (0.9 % Sodium Chloride Flush 3 Ml Syringe) 3 ml IVFLUSH QSHIFT [facility] Last Admin: 09/30/22 00:05 Dose: Not Given Documented By: ELLE Non-Admin Reason: IV Running Labs 09/30/22 05:21 09/30/22 05:21 Labs: Laboratory Results - last 24 hr 09/29/22 09/29/22 09/29/22 02:28 18:03 18:03 MCV 86.6 MCH 29.7 MCHC 34.2 RDW 14.0 Plt Count 291 MPV 12.6 H Immature Gran % (Auto) 0.3 Neut % (Auto) 68.4 Lymph % (Auto) 22.1 [place] % (Auto) 5.9 Eos % (Auto) 2.9 Baso % (Auto) 0.4 Lymph # (Auto) 2.6 [place] # (Auto) 0.7 Eos # (Auto) 0.4 Baso # (Auto) 0.1 Abs Immat Gran (auto) 0.04 H Absolute Neuts (auto) 8.2 Absolute Nucleated RBC 0.000 Nucleated RBC % (auto) 0.0 Anion Gap 15 Estim Creat Clear Calc 89.5 Estimated GFR > 60 Random Glucose 111 Lactic Acid 0.8 Calcium 9.3 Magnesium 1.9 Total Bilirubin 0.7 AST 27 ALT 157 H Alkaline Phosphatase 324 H Total Protein 6.8 Albumin 3.5 Triglycerides Lipase 463 H Urine Color Urine Appearance Urine pH Ur Specific [place] Urine Protein Urine Glucose (UA) Urine Ketones Urine Blood Urine Nitrite Ur Leukocyte Esterase Urine RBC Urine WBC Ur Squamous Epith Cells Urine Bacteria Hyaline Casts Urine Opiates Screen Urine Fentanyl Screen Ur Barbiturates Screen Ur Phencyclidine Scrn Ur Amphetamines Screen U Benzodiazepines Scrn Urine Cocaine Screen U Marijuana (THC) Screen Ethyl Alcohol COVID-19 ([facility]) COVID-19 Clin Com 09/29/22 09/29/22 09/29/22 18:03 22:44 22:44 MCV MCH MCHC RDW Plt Count MPV Immature Gran % (Auto) Neut % (Auto) Lymph % (Auto) [place] % (Auto) Eos % (Auto) Baso % (Auto) Lymph # (Auto) [place] # (Auto) Eos # (Auto) Baso # (Auto) Abs Immat Gran (auto) Absolute Neuts (auto) Absolute Nucleated RBC Nucleated RBC % (auto) Anion Gap Estim Creat Clear Calc Estimated GFR Random Glucose Lactic Acid Calcium Magnesium Total Bilirubin AST ALT Alkaline Phosphatase Total Protein Albumin Triglycerides 84 Lipase Urine Color Dark Yellow Urine Appearance Cloudy Urine pH 6.5 Ur Specific [place] 1.025 Urine Protein 30 (1+) H Urine Glucose (UA) Negative Urine Ketones 80 Urine Blood Negative Urine Nitrite Negative Ur Leukocyte Esterase Trace H Urine RBC 3-5 H Urine WBC 0-5 Ur Squamous Epith Cells 0-2 Urine Bacteria None Seen Hyaline Casts 0-2 Urine Opiates Screen Not Detected Urine Fentanyl Screen Not Detected Ur Barbiturates Screen POSITIVE H Ur Phencyclidine Scrn Not Detected Ur Amphetamines Screen Not Detected U Benzodiazepines Scrn Not Detected Urine Cocaine Screen Not Detected U Marijuana (THC) Screen POSITIVE H Ethyl Alcohol < 10 COVID-19 ([facility]) COVID-19 Clin Com 09/30/22 09/30/22 09/30/22 00:47 00:47 05:21 MCV 85.5 MCH 29.4 MCHC 34.3 RDW 14.2 Plt Count 410 H D MPV 11.2 Immature Gran % (Auto) 0.3 Neut % (Auto) 62.9 Lymph % (Auto) 25.4 [place] % (Auto) 7.0 Eos % (Auto) 3.9 Baso % (Auto) 0.5 Lymph # (Auto) 2.8 [place] # (Auto) 0.8 Eos # (Auto) 0.4 Baso # (Auto) 0.1 Abs Immat Gran (auto) 0.03 Absolute Neuts (auto) 6.9 Absolute Nucleated RBC 0.000 Nucleated RBC % (auto) 0.0 Anion Gap Estim Creat Clear Calc Estimated GFR Random Glucose Lactic Acid Calcium Magnesium Total Bilirubin AST ALT Alkaline Phosphatase Total Protein Albumin Triglycerides 75 Lipase Urine Color Urine Appearance Urine pH Ur Specific [place] Urine Protein Urine Glucose (UA) Urine Ketones Urine Blood Urine Nitrite Ur Leukocyte Esterase Urine RBC Urine WBC Ur Squamous Epith Cells Urine Bacteria Hyaline Casts Urine Opiates Screen Urine Fentanyl Screen Ur Barbiturates Screen Ur Phencyclidine Scrn Ur Amphetamines Screen U Benzodiazepines Scrn Urine Cocaine Screen U Marijuana (THC) Screen Ethyl Alcohol COVID-19 (LIZZIE) Negative COVID-19 Clin Com See Note 09/30/22 05:21 MCV MCH MCHC RDW Plt Count MPV Immature Gran % (Auto) Neut % (Auto) Lymph % (Auto) [place] % (Auto) Eos % (Auto) Baso % (Auto) Lymph # (Auto) [place] # (Auto) Eos # (Auto) Baso # (Auto) Abs Immat Gran (auto) Absolute Neuts (auto) Absolute Nucleated RBC Nucleated RBC % (auto) Anion Gap 14 Estim Creat Clear Calc 115.3 Estimated GFR > 60 Random Glucose 77 Lactic Acid Calcium 8.1 L D Magnesium Total Bilirubin AST ALT Alkaline Phosphatase Total Protein Albumin Triglycerides Lipase Urine Color Urine Appearance Urine pH Ur Specific [place] Urine Protein Urine Glucose (UA) Urine Ketones Urine Blood Urine Nitrite Ur Leukocyte Esterase Urine RBC Urine WBC Ur Squamous Epith Cells Urine Bacteria Hyaline Casts Urine Opiates Screen Urine Fentanyl Screen Ur Barbiturates Screen Ur Phencyclidine Scrn Ur Amphetamines Screen U Benzodiazepines Scrn Urine Cocaine Screen U Marijuana (THC) Screen Ethyl Alcohol COVID-19 ([facility]ZZIE) COVID-19 Clin Com Assessment and Plan (1) Chronic alcoholic pancreatitis: Status: Acute (2) Pancreatic pseudocyst: Status: Acute (3) GERD (gastroesophageal reflux disease): Status: Acute Plan 52-year-old male with pertinent history of gastroesophageal reflux disease, history of alcohol induced pancreatitis presents to the emergency department for evaluation of abdominal pain. #.? Abdominal pain likely due to acute on chronic pancreatitis with pseudocysts:? multiple large pseudocyst in the neck and head of the pancreas, CT abdomen not suggestive of acute pancreatitis lipase 463, normal bili, elevated ALT 157 and alk-phos of 324, triglyceride 84 , unremarkable gallbladder with no evidence of gallstones Continue IV fluids,? Pain control with IV opioids p.r.n. Full liquid diet and advance as tolerated.? case discussed with Dr. Kang he did not recommend endoscopic drainage of pseudocyst, will DC MRI abdomen hold Lipitor, will add pancreatic enzyme with meals obtained GI consult for further workup and evaluation monitor lipase amylase LFTs,cbc and BMP #.? GERD: On PPI #.? Alcohol use disorder:? Patient states he last consumed alcohol > 7 months ago.? Ethanol level less than 10.? urine toxicology positive for barbiturates (on fiorecet) and marijuana. DVT prophylaxis:? Lovenox 40 mg daily Full code Liquid diet.? Advance as tolerated patient need continued inpatient hospitalization for management of abdominal pain/acute pancreatitis and pseudocyst. Time Spent With Patient Time: Total time managing care of this patient today ____ minutes. Quality Stroke Does the patient have a stroke diagnosis?: No VTE Prior VTE?: No VTE Risk Level:: Medical - moderate - high VTE Device Contraindication: Treatment Not Indicated VTE Drug Contraindication: N/A - Med Ordered
--- NOTE | 2022-09-30 08:38 | PHA.MEDREC ---
Pharmacy Consult ? Medication Reconciliation Pharmacy has completed the medication reconciliation.
[2022-09-30 08:47] VITALS: BP 140/101; PULSE 74; RESP 16; O2SAT 99
--- NOTE | 2022-09-30 08:57 | PC.NURSE ---
Patient resting comfortably no distress noted reported good effect from IV pain meds. Neuros intact AOx 4 will CTM
[2022-09-30] MEDS: 0.9 % Sodium Chloride 1,000 ML 100 ML IVCONT ×2 (09:46→20:15)
--- NOTE | 2022-09-30 10:37 | P.CNGI_ITS ---
History of Present Illness Data of Consult Service Date: 09/30/22 Requesting physician: Maryam Melo Primary Care Provider: BERTRAM Vogt HPI Reason for consult: Pancreatitis with pseudocyst 52 YM with history of GERD, history of alcohol induced pancreatitis seen at [facility] on 09/29/22 with abdominal pain.? Patient gives hx of 10/10 upper abdominal pain for the past 2 weeks.? Pain is constant and becomes worse with eating and drinking, and radiates to the left side. Pt has noted nausea,chills and sweating. Pt denied fever, chest discomfort, palpitations, shortness of breath, changes in urinary habits. Patient is unable to tolerate any p.o. intake due to nausea and pain and gives hx of wt loss of 20 to 25 lbs over the past 2 weeks.? Pt denies having a BM since the pain started. Pt reports having similar pain 2 yrs ago and was diagnosed with pancreatitis. Sever pain resolved and he has noted intermittent mild episodes of abd pain since then He states he was never hospitalized for this issue. Pt admits to heavy ETOH abuse (upto 12 beers a day) since age 17 yrs. States his last alcohol use was 7 months ago.? he quitted smoking 1.5 months ago. Pt lives with his GF, has a son and is on disability. Patient denies known family history of pancreatic disease or GI malignancy. In the emergency department, CT with pseudocyst and concerning for pancreatitis.? Lipase was elevated 09/29/[address] SCAN SHOWED: 1. Significant constipation. ?2. There are multiple large pseudocysts in the pancreatic head and the neck. Previously seen small 2 cm cyst in the neck of the pancreas has now increased measuring 5.8 cm. There is a larger pseudocyst visualized in the head of the pancreas with small exophytic cyst adjacent to it. Head and the body of the pancreas have increased in size. There are scattered calcifications in the body of the pancreas from chronic pancreatitis. No haziness is seen surrounding the pancreas. I suspect acute pancreatitis. However, correlation with serum amylase is recommended. If patient has increasing pain, an MRI of the pancreas can be performed to exclude acute pancreatitis or underlying pancreatic lesion. 3. Likely post inflammatory peripancreatic lymph nodes. ? 04/[address] SCAN SHOWED: PANCREAS: There is enlargement and edema of the head of the pancreas. There is stranding of the surrounding fat and small amount of fluid. Findings are suggestive of acute pancreatitis. There is a 2.1 cm simple appearing cyst in the neck of the pancreas. This may represent a pseudocyst. The pancreas is otherwise unremarkable. The main pancreatic duct does not appear dilated.? Review of Systems Review of Systems: Positive abdominal pain Yes all other systems are reviewed and are negative PMFSH Past Medical History Medical History GERD (gastroesophageal reflux disease) Pancreatitis Social History Social History Household Members: Significant Other Housing: Apartment Do you presently have visiting nurse or other home services: No Alcohol intake: former Patient Tobacco Use Status: Former Tobacco user Tobacco use type: Cigarette e-Cigarette/Vaping Use: Never Used Second Hand Smoke Exposure: No Substance Use Type: Marijuana service: No Current occupational status: disabled Meds Allergies Allergy/AdvReac Type Severity Reaction Status Date / Time No Known Allergies Allergy Verified 04/21/22 11:11 Active Medications: Current Medications Acetaminophen (Acetaminophen 325 Mg Tablet) 650 mg PO Q6H PRN PRN Reason: Pain, Mild (Pain Scale 1-3) Enoxaparin Sodium (Enoxaparin Sodium 40 Mg/0.4 Ml Syringe) 40 mg SUBCUT Q24H [facility] Last Admin: 09/29/22 23:45 Dose: 40 mg Sodium Chloride (Ns) 1,000 mls @ 100 mls/hr IVCONT .Q10H [facility] Last Admin: 09/30/22 09:46 Dose: 100 mls/hr Melatonin (Melatonin 3 Mg Tablet) 6 mg PO BEDTIME PRN PRN Reason: Insomnia Morphine Sulfate (Morphine Sulfate 4 Mg/Ml Cartridge) 4 mg IVPUSH Q6H PRN; Protocol PRN Reason: Pain, Severe (Pain Scale 7-10) Last Admin: 09/30/22 08:26 Dose: 4 mg Ondansetron HCl (Ondansetron Hcl 4 Mg/2 Ml Vial) 4 mg IVPUSH Q8H PRN PRN Reason: Nausea and Vomiting Last Admin: 09/30/22 09:46 Dose: 4 mg Pharmacy Consult (Consult Rx Perform Med Rec) 1 each MISCELLANE ONCE PRN PRN Reason: Consult order Sodium Chloride (0.9 % Sodium Chloride Flush 3 Ml Syringe) 3 ml IVFLUSH QSHIFT [facility] Last Admin: 09/30/22 08:41 Dose: Not Given Home Medications Medication Instructions Recorded Confirmed Last Taken Type aktzqqsnly-clwomiciknwrv-aqbstlrx 1 tab PO Q12H PRN Pain 09/30/22 09/30/22 Unknown History 50 mg-325 mg-40 mg tablet cyclobenzaprine 5 mg tablet 1 tab PO Q8H PRN muscle spasm 09/30/22 09/30/22 Unknown History gabapentin 400 mg capsule 1 cap PO TID 09/30/22 09/30/22 Unknown History omeprazole 20 mg capsule,delayed 1 cap PO BID 09/30/22 09/30/22 Unknown History release Physical Exam Vital Signs: Vital Signs: Last Vital Signs Temp 98.8 F 09/29/22 23:28 Pulse 74 09/30/22 08:47 Resp 16 09/30/22 08:47 BP 140/101 H 09/30/22 08:47 Pulse Ox 99 09/30/22 08:47 O2 Del Method 09/30/22 08:47 BMI result Body Mass Index 20.0 Const: General: no acute distress Nutritional Appearance: average body habitus Orientation/consciousness: patient oriented x3 Limitations: no limitations HEENT: Head: Yes normal to inspection Ears: hearing grossly normal bilaterally Eyes: Sclerae: sclerae normal Pupils: Equal, round and reactive pupils present Neck: Neck: Yes normal visual inspection Chest: Chest palpation & inspection: normal inspection of the chest Resp: Effort & Inspection: normal respiratory effort Auscultation: clear to auscultation bilaterally Cardio: Palpation: normal PMI Rate: regular rate Rhythm: regular rhythm Heart sounds: S1 normal heart sound present, S2 normal heart sound present and no murmurs GI: Palpation (GI): Soft to palpation, Tenderness to palpation present (GI) (Moderate upper abdominal tenderness without rebound) and No hepatosplenomegaly present Auscultation: normal bowel sounds Rectal Exam - Male: Yes deferred Skin: General skin exam: no rashes or lesions noted Neuro: General: patient oriented x3, gait normal and moves all extremities Cranial nerves: Yes Equal, round and reactive pupils present Psych: Appearance: grossly normal Mental Status: mental status grossly normal Results Labs 09/30/22 05:21 09/30/22 05:21 Labs: Short CBC 09/29/22 09/30/22 Range/Units 02:28 05:21 WBC 11.9 H 11.0 H (4.8-10.8) X10*3/uL Hgb 15.1 12.4 L (14.0-18.0) g/dl Hct 44.1 36.1 L (42.0-52.0) % Plt Count 291 410 H D (160-400) X10*3/uL BMP 09/29/22 09/30/22 18:03 05:21 Sodium 137 138 Potassium 4.3 4.2 Chloride 99 104 Carbon Dioxide 27 24 BUN 6 L 7 L Creatinine 0.76 0.59 Calcium 9.3 8.1 L D Liver Function 09/29/22 Range/Units 18:03 Total Bilirubin 0.7 (0.0-1.0) mg/dL AST 27 (5-37) U/L ALT 157 H (0-40) U/L Alkaline Phosphatase 324 H (39-117) U/L Albumin 3.5 (3.5-5.0) g/dL Urine 09/29/22 Range/Units 22:44 Urine Color Dark Yellow Urine Appearance Cloudy Urine pH 6.5 (5.0-9.0) Ur Specific [place] 1.025 (1.005-1.025) Urine Protein 30 (1+) H (Neg-Trace) mg/dL Urine Glucose (UA) Negative (Negative) mg/dL Assessment and Plan (1) Pancreatic pseudocyst: Status: Acute (2) Chronic alcoholic pancreatitis: Status: Acute Plan 52 YM with history of GERD, history of alcohol induced chronic calcific pancreatitis X past 2 yrs admitted with acute on chronic pancreatitis/abdominal pain due to enlarging pseudocyst.? Pt reports having similar pain 2 yrs ago and was diagnosed with pancreatitis. Severe pain resolved and he has noted intermittent mild episodes of abd pain since then He states he was never hospitalized for this issue. Pt admits to heavy ETOH abuse (upto 12 beers a day) since age 17 yrs and quitted drinking ? 1.[address] scan (without IV or oral contrast) showed multiple large pseudocysts in the pancreatic head and the neck. Previously seen small 2 cm cyst in the neck of the pancreas has now increased measuring 5.8 cm. There are scattered calcifications in the body of the pancreas from chronic pancreatitis. No haziness is seen surrounding the pancreas to suspect acute pancreatitis. RECOMMENDATIONS: 1. Agree with clear liquid diet and IV pain medications and anti emetics 2. Once pain improves, repeat CT scan with IV and oral contrast in 48 to 72 hrs. If no change in size of pseudocyst, pt will need percutaneous or endoscopic drainage. FU abdominal CT scan with PO contrast will be helpful to determine if larger pseudocysts are amenable to endoscopic drainage by cyst-gastrostomy ADDENDUM: 10/02/[address] SCAN SHOWED: Multiple large pseudocyst in the neck and the head of the pancreas is diffusely accessible via endoscopy through the stomach. Overall no change in the size of the pseudocyst from the last CT. There is a thick rind of tissue around the pancreas with calcification in the body of pancreas suggesting pancreatitis. No evidence of acute pancreatitis. ? Pt was transferred to [facility] for? endoscopic drainage (Cyst gastrostomy) by Gastroenterology Time Spent With Patient Time: Total time managing care of this patient today ____ minutes. Procedures Date of Service Date of Service: 09/30/22
[2022-09-30] MEDS: Omeprazole 20 MG CAPSULE.DR PO (15:23)
[2022-09-30] MEDS: Gabapentin 400 MG CAPSULE PO ×2 (15:23→20:16)
[2022-09-30 17:10] VITALS: BP 149/91; PULSE 89; RESP 18; TEMP 37; O2SAT 98
[2022-09-30] MEDS: Acetaminophen 325 MG TABLET 650 MG PO (17:41)
[2022-09-30 20:00] VITALS: BP 156/91; PULSE 72; RESP 18; TEMP 37; O2SAT 98
[2022-09-30] MEDS: Docusate Sodium 100 MG CAPSULE PO (20:16)
[2022-09-30] MEDS: Melatonin 3 MG TABLET 6 MG PO (20:17)
[2022-10-01] MEDS: Enoxaparin Sodium 40 MG/0.4 ML SYRINGE SUBCUT ×2 (00:01→21:46)
[2022-10-01 02:52] VITALS: BP 155/103; PULSE 78; RESP 16; TEMP 37.2; O2SAT 99
[2022-10-01] MEDS: Morphine Sulfate 4 MG/ML CARTRIDGE IVPUSH ×4 (02:52→21:46)
[2022-10-01 03:00] VITALS: BP 150/90
[2022-10-01] MEDS: Omeprazole 20 MG CAPSULE.DR PO ×2 (05:48→15:31)
[2022-10-01] MEDS: 0.9 % Sodium Chloride 1,000 ML 100 ML IVCONT ×2 (05:49→17:44)
[2022-10-01 06:40] LABS: Hematocrit 35.6 % (42.0-52.0); Hemoglobin 12.2 g/dl (14.0-18.0); Mean Corpuscular HGB Conc 34.3 g/dl (31.0-36.0); Mean Corpuscular Hemoglobin 29.4 pg (27.0-33.0); Mean Corpuscular Volume 85.8 fL (80.0-98.0); Mean Platelet Volume 10.8 fL (9.4-12.4); Platelet Count 390 X10*3/uL (160-400); Red Blood Count 4.15 X10*6/uL (4.60-5.80); Red Cell Distribution Width 14.3 % (11.0-16.0); White Blood Count 9.3 X10*3/uL (4.8-10.8)
[2022-10-01 07:02] LABS: Alanine Aminotransferase 96 U/L (0-40); Albumin Level 2.9 g/dL (3.5-5.0); Alkaline Phosphatase 314 U/L (39-117); Anion Gap 15 (12-20); Aspartate Amino Transferase 36 U/L (5-37); Bilirubin Direct 0.3 mg/dL (0.0-0.5); Bilirubin Total 0.6 mg/dL (0.0-1.0); Blood Urea Nitrogen 6 mg/dL (9-16); Calcium 8.4 mg/dL (8.4-10.2); Carbon Dioxide 23 mmol/L (22-29); Chloride 104 mmol/L (96-108); Cholesterol 135 mg/dL; Creatinine Clr Calc Pharmacy 117.3; Estimated Glomerular Filt Rate > 60; Glucose Random 70 mg/dL (60-115); HDL Cholesterol 11 mg/dL; LDL Cholesterol Calculated 106 mg/dl; Potassium 4.1 mmol/L (3.3-5.1); Sodium 138 mmol/L (135-145); Total Protein 5.4 g/dL (6.5-8.0); Triglycerides 93 mg/dL
[2022-10-01 07:26] LABS: Amylase 697 U/L (28-100)
[2022-10-01 08:00] VITALS: BP 154/93; PULSE 72; RESP 18; TEMP 36.8; O2SAT 99
[2022-10-01] MEDS: Gabapentin 400 MG CAPSULE PO ×3 (09:04→21:46)
[2022-10-01] MEDS: 0.9 % Sodium Chloride Flush 3 ML SYRINGE IVFLUSH ×3 (09:04→21:47)
--- NOTE | 2022-10-01 09:50 | MHC.CM.PN ---
CM MET WITH PT AT BEDSIDE. LIVES IN AN APT WITH S/O. NO SERVICES OR DME. NO HCP, DECLINES AT THIS TIME. +COVID VAX X3 PCP AT [facility]. DP: HOME, NO SERVICES ANTICIPATED. FAMILY WILL TRANSPORT HOME.
--- NOTE | 2022-10-01 13:01 | HO.PM.IMPN ---
Subjective Subjective Date of Service: 10/01/22 Interval History: feeling better this morning abdominal pain is better but not completely resolved,able to tolerate full liquid diet, pain is persistent for 2 weeks, no nausea no vomiting no diarrhea passing flatus no fevers, no chills, no other acute issues overnight. Physical Exam Vital Signs: Vital Signs: Last Vital Signs Temp 98.3 F 10/01/22 08:00 Pulse 72 10/01/22 08:00 Resp 18 10/01/22 08:00 BP 154/93 H 10/01/22 08:00 Pulse Ox 99 10/01/22 08:00 O2 Del Method 10/01/22 08:00 BMI result Body Mass Index 20.0 Const: Other: General? awake heide rt x3, resting com fortably in no acu te distress.? Neck supple no JVD. CV S? regular rate rh ythm, Respiratory lungs clear to aus cultation, no resp iratory distress, no wheeze, no rhon chi. Gastrointesti nal? mild epigastr ic? tenderness, conor wel sounds audible , no guarding , no rigidity. Extremi ties no? edema. Ne uro nonfocal Skin no rash psych appr opriate affect Objective Data Active Medications Acetaminophen (Acetaminophen 325 Mg Tablet) 650 mg PO Q6H PRN PRN Reason: Pain, Mild (Pain Scale 1-3) Last Admin: 09/30/22 17:41 Dose: 650 mg Documented By: CARLA Docusate Sodium (Docusate Sodium 100 Mg Capsule) 100 mg PO BEDTIME [facility] Last Admin: 09/30/22 20:16 Dose: 100 mg Documented By: JYOTI Enoxaparin Sodium (Enoxaparin Sodium 40 Mg/0.4 Ml Syringe) 40 mg SUBCUT Q24H [facility] Last Admin: 10/01/22 00:01 Dose: 40 mg Documented By: JYOTI Gabapentin (Gabapentin 400 Mg Capsule) 400 mg PO TID [facility] Last Admin: 10/01/22 09:04 Dose: 400 mg Documented By: JARED Sodium Chloride (Ns) 1,000 mls @ 100 mls/hr IVCONT .Q10H [facility] Last Admin: 10/01/22 05:49 Dose: 100 mls/hr Documented By: JYOTI Magnesium Hydroxide (Milk Of Magnesia 30 Ml Oral.Susp) 30 ml PO DAILY PRN PRN Reason: Constipation Melatonin (Melatonin 3 Mg Tablet) 6 mg PO BEDTIME PRN PRN Reason: Insomnia Last Admin: 09/30/22 20:17 Dose: 6 mg Documented By: JYOTI Morphine Sulfate (Morphine Sulfate 4 Mg/Ml Cartridge) 4 mg IVPUSH Q6H PRN; Protocol PRN Reason: Pain, Severe (Pain Scale 7-10) Last Admin: 10/01/22 09:02 Dose: 4 mg Documented By: JARED Omeprazole (Omeprazole 20 Mg Capsule.Dr) 20 mg PO BID@0630,1630 [facility] Last Admin: 10/01/22 05:48 Dose: 20 mg Documented By: JYOTI Ondansetron HCl (Ondansetron Hcl 4 Mg/2 Ml Vial) 4 mg IVPUSH Q8H PRN PRN Reason: Nausea and Vomiting Last Admin: 09/30/22 09:46 Dose: 4 mg Documented By: EKTA Pharmacy Consult (Consult Rx Perform Med Rec) 1 each MISCELLANE ONCE PRN PRN Reason: Consult order Sodium Chloride (0.9 % Sodium Chloride Flush 3 Ml Syringe) [facility] Last Admin: 10/01/22 09:04 Dose: 3 ml Documented By: JARED Labs 10/01/22 06:07 10/01/22 06:07 Labs: Laboratory Results - last 24 hr 10/01/22 10/01/22 06:07 06:07 MCV 85.8 MCH 29.4 MCHC 34.3 RDW 14.3 Plt Count 390 MPV 10.8 Absolute Nucleated RBC 0.000 Nucleated RBC % (auto) 0.0 Anion Gap 15 Estim Creat Clear Calc 117.3 Estimated GFR > 60 Random Glucose 70 Calcium 8.4 Total Bilirubin 0.6 Direct Bilirubin 0.3 AST 36 ALT 96 H Alkaline Phosphatase 314 H Total Protein 5.4 L Albumin 2.9 L Triglycerides 93 Cholesterol 135 LDL Cholesterol, Calc 106 HDL Cholesterol 11 Amylase 697 H Assessment and Plan (1) Chronic alcoholic pancreatitis: Status: Acute (2) Pancreatic pseudocyst: Status: Acute (3) GERD (gastroesophageal reflux disease): Status: Acute Plan 52-year-old male with pertinent history of gastroesophageal reflux disease, history of alcohol induced pancreatitis presents to the emergency department for evaluation of abdominal pain. #.? Abdominal pain likely due to acute on chronic pancreatitis with pseudocysts:? Has ongoing epigastric pain of 2 weeks duration feel pain is better since yesterday able to tolerate full liquid diet noted to havemultiple large pseudocyst in the neck and head of the pancreas, increased in size from prior CT scan, CT abdomen not suggestive of acute pancreatitis, although elevated amylase lipase 463, normal bili, LFTs trending down, triglyceride 84 , unremarkable gallbladder with no evidence of gallstones Pain control with IV opioids p.r.n.cont. Full liquid diet and add clear Ensure? hold Lipitor, follow LFTs, BMP and CBC seen by Dr. Hammonds she recommend CT abdomen and pelvis with IV and by mouth contrast and 48-72 hours will obtain stat CT at a.m. #.? GERD: On PPI #.? Alcohol use disorder:? Patient states he last consumed alcohol > 7 months ago.? Ethanol level less than 10.? urine toxicology positive for barbiturates (on fiorecet) and marijuana. DVT prophylaxis:? Lovenox 40 mg daily Full code Liquid diet.? Advance as tolerated patient need continued inpatient hospitalization for management of abdominal pain/acute pancreatitis and pseudocyst. Time Spent With Patient Time: Total time managing care of this patient today ____ minutes. Quality Stroke Does the patient have a stroke diagnosis?: No VTE Prior VTE?: No VTE Risk Level:: Medical - moderate - high VTE Device Contraindication: Treatment Not Indicated VTE Drug Contraindication: N/A - Med Ordered
--- NOTE | 2022-10-01 14:38 | P.PNIM_ITS ---
Subjective Subjective Date of Service: 10/02/22 Interval History: feels abdominal pain is better but not completely resolved able to tolerate full liquid diet denies nausea vomiting, no diarrhea, denies fever chills, abdominal pain is persistent for last 2 weeks, denies illicit drug use and alcohol intake. Review of Systems Review of Systems: Yes all other systems are reviewed and are negative Physical Exam Vital Signs: Vital Signs: Last Vital Signs Temp 98.3 F 10/01/22 08:00 Pulse 72 10/01/22 08:00 Resp 18 10/01/22 08:00 BP 154/93 H 10/01/22 08:00 Pulse Ox 99 10/01/22 08:00 O2 Del Method 10/01/22 08:00 BMI result Body Mass Index 20.0 Const: Other: General Awake alert x3, in no acute distress. anicteric sclera Neck is supple no JVD. CVS regular rate rhythm, Respiratory lungs clear to auscultation, no respiratory distress, no wheeze, no rhonchi. Gastrointestinal abdomen soft, mild epigastric tenderness, bowel sounds audible, no guarding , no rigidity. Extremities no edema. Neuro nonfocal Skin no rash psych appropriate affect Objective Data Active Medications Acetaminophen (Acetaminophen 325 Mg Tablet) 650 mg PO Q6H PRN PRN Reason: Pain, Mild (Pain Scale 1-3) Last Admin: 09/30/22 17:41 Dose: 650 mg Documented By: CARLA Docusate Sodium (Docusate Sodium 100 Mg Capsule) 100 mg PO BEDTIME [facility] Last Admin: 09/30/22 20:16 Dose: 100 mg Documented By: JYOTI Enoxaparin Sodium (Enoxaparin Sodium 40 Mg/0.4 Ml Syringe) 40 mg SUBCUT Q24H [facility] Last Admin: 10/01/22 00:01 Dose: 40 mg Documented By: JYOTI Gabapentin (Gabapentin 400 Mg Capsule) 400 mg PO TID [facility] Last Admin: 10/01/22 09:04 Dose: 400 mg Documented By: JARED Sodium Chloride (Ns) 1,000 mls @ 100 mls/hr IVCONT .Q10H [facility] Last Admin: 10/01/22 05:49 Dose: 100 mls/hr Documented By: JYOTI Magnesium Hydroxide (Milk Of Magnesia 30 Ml Oral.Susp) 30 ml PO DAILY PRN PRN Reason: Constipation Melatonin (Melatonin 3 Mg Tablet) 6 mg PO BEDTIME PRN PRN Reason: Insomnia Last Admin: 09/30/22 20:17 Dose: 6 mg Documented By: JYOTI Morphine Sulfate (Morphine Sulfate 4 Mg/Ml Cartridge) 4 mg IVPUSH Q6H PRN; Protocol PRN Reason: Pain, Severe (Pain Scale 7-10) Last Admin: 10/01/22 09:02 Dose: 4 mg Documented By: JARED Omeprazole (Omeprazole 20 Mg Capsule.Dr) 20 mg PO BID@0630,1630 [facility] Last Admin: 10/01/22 05:48 Dose: 20 mg Documented By: JYOTI Ondansetron HCl (Ondansetron Hcl 4 Mg/2 Ml Vial) 4 mg IVPUSH Q8H PRN PRN Reason: Nausea and Vomiting Last Admin: 09/30/22 09:46 Dose: 4 mg Documented By: EKTA Pharmacy Consult (Consult Rx Perform Med Rec) 1 each MISCELLANE ONCE PRN PRN Reason: Consult order Sodium Chloride (0.9 % Sodium Chloride Flush 3 Ml Syringe) 3 ml IVFLUSH QSHIFT [facility] Last Admin: 10/01/22 09:04 Dose: 3 ml Documented By: JARED Labs 10/01/22 06:07 10/01/22 06:07 Labs: Laboratory Results - last 24 hr 10/01/22 10/01/22 06:07 06:07 MCV 85.8 MCH 29.4 MCHC 34.3 RDW 14.3 Plt Count 390 MPV 10.8 Absolute Nucleated RBC 0.000 Nucleated RBC % (auto) 0.0 Anion Gap 15 Estim Creat Clear Calc 117.3 Estimated GFR > 60 Random Glucose 70 Calcium 8.4 Total Bilirubin 0.6 Direct Bilirubin 0.3 AST 36 ALT 96 H Alkaline Phosphatase 314 H Total Protein 5.4 L Albumin 2.9 L Triglycerides 93 Cholesterol 135 LDL Cholesterol, Calc 106 HDL Cholesterol 11 Amylase 697 H Assessment and Plan (1) Chronic alcoholic pancreatitis: Status: Acute (2) Pancreatic pseudocyst: Status: Acute (3) GERD (gastroesophageal reflux disease): Status: Acute Plan 52-year-old male with pertinent history of gastroesophageal reflux disease, history of alcohol induced pancreatitis presents to the emergency department for evaluation of abdominal pain. #.? Abdominal pain likely due to acute on chronic pancreatitis with pseudocysts:? Has ongoing epigastric pain of 2 weeks duration feel pain is better since yesterday able to tolerate full liquid diet noted to have multiple large pseudocyst in the neck and head of the pancreas, increased in size from prior CT scan, CT abdomen not suggestive of acute pancreatitis, although elevated amylase lipase 463, normal bili, LFTs trending down, triglyceride 84 , unremarkable gallbladder with no evidence of gallstones Pain control with IV opioids p.r.n.cont. Full liquid diet and add clear Ensure? hold Lipitor, follow LFTs, BMP and CBC seen by Dr. Hammonds she recommend CT abdomen and pelvis with IV and by mouth contrast and 48-72 hours will obtain stat CT at a.m. #.? GERD: On PPI #.? Alcohol use disorder:? Patient states he last consumed alcohol > 7 months ago.? Ethanol level less than 10.? urine toxicology positive for barbiturates (on fiorecet) and marijuana. DVT prophylaxis:? Lovenox 40 mg daily Full code Liquid diet.? Advance as tolerated patient need continued inpatient hospitalization for management of abdominal pain/acute pancreatitis and pseudocyst. Time Spent With Patient Time: Total time managing care of this patient today ____ minutes. Quality Stroke Does the patient have a stroke diagnosis?: No VTE Prior VTE?: No VTE Risk Level:: Medical - moderate - high VTE Device Contraindication: Treatment Not Indicated VTE Drug Contraindication: N/A - Med Ordered
[2022-10-01] MEDS: Acetaminophen 325 MG TABLET 650 MG PO (15:31)
[2022-10-01 15:45] VITALS: BP 156/96; PULSE 69; RESP 14; TEMP 37.1; O2SAT 98
[2022-10-01 19:20] VITALS: BP 136/90; PULSE 71; RESP 14; TEMP 36.9; O2SAT 99
[2022-10-01] MEDS: Docusate Sodium 100 MG CAPSULE PO (21:46)
[2022-10-01] MEDS: Melatonin 3 MG TABLET 6 MG PO (21:46)
[2022-10-02] MEDS: Acetaminophen 325 MG TABLET 650 MG PO (02:18)
[2022-10-02] MEDS: Morphine Sulfate 4 MG/ML CARTRIDGE IVPUSH ×2 (03:49→10:17)
[2022-10-02 04:00] VITALS: BP 145/87; PULSE 62; RESP 20; TEMP 36.4; O2SAT 97
[2022-10-02] MEDS: Omeprazole 20 MG CAPSULE.DR PO ×2 (05:45→16:30)
[2022-10-02 07:24] LABS: Alanine Aminotransferase 71 U/L (0-40); Albumin Level 2.9 g/dL (3.5-5.0); Alkaline Phosphatase 257 U/L (39-117); Anion Gap 11 (12-20); Aspartate Amino Transferase 18 U/L (5-37); Bilirubin Direct < 0.2 mg/dL (0.0-0.5); Bilirubin Total 0.5 mg/dL (0.0-1.0); Blood Urea Nitrogen 4 mg/dL (9-16); Calcium 8.4 mg/dL (8.4-10.2); Carbon Dioxide 26 mmol/L (22-29); Chloride 105 mmol/L (96-108); Creatinine Clr Calc Pharmacy 117.3; Estimated Glomerular Filt Rate > 60; Glucose Random 131 mg/dL (60-115); Sodium 138 mmol/L (135-145); Total Protein 5.4 g/dL (6.5-8.0)
[2022-10-02 07:27] LABS: Lipase 308 U/L (8-78)
[2022-10-02 07:47] VITALS: BP 155/90; PULSE 70; RESP 18; TEMP 36.3; O2SAT 98
[2022-10-02] MEDS: 0.9 % Sodium Chloride Flush 3 ML SYRINGE IVFLUSH ×3 (10:17→21:13)
[2022-10-02] MEDS: Gabapentin 400 MG CAPSULE PO ×3 (10:17→21:09)
--- NOTE | 2022-10-02 12:01 | P.PNIM_ITS ---
Subjective Subjective Date of Service: 10/02/22 Interval History: abdominal pain has significantly improved, but not completely resolved, pain worse after eating full liquid diet, denies nausea, no vomiting, no diarrhea, no fevers, no chills, no other acute issues overnight. Review of Systems Review of Systems: Yes all other systems are reviewed and are negative Physical Exam Vital Signs: Vital Signs: Last Vital Signs Temp 97.3 F 10/02/22 07:47 Pulse 70 10/02/22 07:47 Resp 18 10/02/22 07:47 BP 155/90 H 10/02/22 07:47 Pulse Ox 98 10/02/22 07:47 O2 Del Method 10/02/22 07:47 BMI result Body Mass Index 20.0 Const: Other: General ? Awake alert x3, in no acute distress. anicteric sclera? Neck is supple no JVD. CVS? regular rate rhythm, Respiratory lungs clear to auscultation, no respiratory distress, no wheeze, no rhonchi. Gastrointestinal abdomen soft,? mild epigastric tenderness, bowel sounds audible, no guarding , no rigidity. Extremities no edema. Neuro nonfocal Skin no rash psych appropriate affect Objective Data Active Medications Acetaminophen (Acetaminophen 325 Mg Tablet) 650 mg PO Q6H PRN PRN Reason: Pain, Mild (Pain Scale 1-3) Last Admin: 10/02/22 02:18 Dose: 650 mg Documented By: JYOTI Lipase/Protease/Amylase (Lipase/Prot/Amylase 24/76/120k 1 Cap Capsule.Dr) 1 cap PO TIDWM [facility] Docusate Sodium (Docusate Sodium 100 Mg Capsule) 100 mg PO BEDTIME [facility] Last Admin: 10/01/22 21:46 Dose: 100 mg Documented By: JYOTI Enoxaparin Sodium (Enoxaparin Sodium 40 Mg/0.4 Ml Syringe) 40 mg SUBCUT Q24H [facility] Last Admin: 10/01/22 21:46 Dose: 40 mg Documented By: JYOTI Gabapentin (Gabapentin 400 Mg Capsule) 400 mg PO TID [facility] Last Admin: 10/02/22 10:17 Dose: 400 mg Documented By: JARED Magnesium Hydroxide (Milk Of Magnesia 30 Ml Oral.Susp) 30 ml PO DAILY PRN PRN Reason: Constipation Melatonin (Melatonin 3 Mg Tablet) 6 mg PO BEDTIME PRN PRN Reason: Insomnia Last Admin: 10/01/22 21:46 Dose: 6 mg Documented By: JYOTI Morphine Sulfate (Morphine Sulfate 4 Mg/Ml Cartridge) 4 mg IVPUSH Q6H PRN; Protocol PRN Reason: Pain, Severe (Pain Scale 7-10) Last Admin: 10/02/22 10:17 Dose: 4 mg Documented By: JARED Omeprazole (Omeprazole 20 Mg Benjamin.) 20 mg PO BID@0630,1630 [facility] Last Admin: 10/02/22 05:45 Dose: 20 mg Documented By: JYOTI Ondansetron HCl (Ondansetron Hcl 4 Mg/2 Ml Vial) 4 mg IVPUSH Q8H PRN PRN Reason: Nausea and Vomiting Last Admin: 09/30/22 09:46 Dose: 4 mg Documented By: EKTA Pharmacy Consult (Consult Rx Perform Med Rec) 1 each MISCELLANE ONCE PRN PRN Reason: Consult order Sodium Chloride (0.9 % Sodium Chloride Flush 3 Ml Syringe) 3 ml IVFLUSH [facility] Last Admin: 10/02/22 10:17 Dose: 3 ml Documented By: JARED Labs 10/01/22 06:07 10/02/22 06:22 Labs: Laboratory Results - last 24 hr 10/02/22 06:22 Anion Gap 11 L Estim Creat Clear Calc 117.3 Estimated GFR > 60 Random Glucose 131 H Calcium 8.4 Total Bilirubin 0.5 Direct Bilirubin < 0.2 AST 18 ALT 71 H Alkaline Phosphatase 257 H Total Protein 5.4 L Albumin 2.9 L Lipase 308 H Assessment and Plan (1) Chronic alcoholic pancreatitis: Status: Acute (2) Pancreatic pseudocyst: Status: Acute (3) GERD (gastroesophageal reflux disease): Status: Acute Plan 52-year-old male with pertinent history of gastroesophageal reflux disease, history of alcohol induced pancreatitis presents to the emergency department for evaluation of abdominal pain. #.? Abdominal pain likely due to acute on chronic pancreatitis with pseud ocysts:? Has ongoing epigastric pain of 2 weeks duration Significant improvement in pain, will continue full liquid diet, elevated lipase and amylase likely due to pseudocyst will obtain CT abdomen and pelvis with IV and by mouth contrast to assess size of pseudocyst if no change then Dr. Hammonds will discuss with Gastroenterology at [facility] for cyst aspiration pancreazyme tabs with meals. #.? GERD: On PPI #.? Alcohol use disorder:? last consumed alcohol > 7 months ago.? Ethanol level less than 10.? urine toxicology positive for barbiturates (on fiorecet) and marijuana. DVT prophylaxis:? Lovenox 40 mg daily Full code Liquid diet.? Advance as tolerated patient need continued inpatient hospitalization for management of abdominal pain/acute pancreatitis and pseudocyst. Time Spent With Patient Time: Total time managing care of this patient today ____ minutes. Quality Stroke Does the patient have a stroke diagnosis?: No VTE Prior VTE?: No VTE Risk Level:: Medical - moderate - high VTE Device Contraindication: Treatment Not Indicated VTE Drug Contraindication: N/A - Med Ordered
[2022-10-02] MEDS: iohexoL 350 MG/ML 100 ML INFUS..BTL 85 ML IV (15:10)
[2022-10-02 15:36] VITALS: BP 150/92; PULSE 69; RESP 14; TEMP 36.5; O2SAT 98
[2022-10-02] MEDS: oxyCODONE HCl Immed Release 5 MG TABLET 2.5 MG PO (16:29)
[2022-10-02] MEDS: polyethylene glycoL 3350 17 GM POWD.PACK PO (16:29)
[2022-10-02] MEDS: Lipase/Prot/Amylase 24/76/120K 1 CAP CAPSULE.DR PO (17:34)
[2022-10-02 20:00] VITALS: BP 139/90; PULSE 68; RESP 12; TEMP 36.5; O2SAT 97
[2022-10-02] MEDS: Docusate Sodium 100 MG CAPSULE 200 MG PO (21:08)
[2022-10-02] MEDS: oxyCODONE HCl Immed Release 5 MG TABLET PO (21:09)
[2022-10-02] MEDS: Melatonin 3 MG TABLET 6 MG PO (21:10)
[2022-10-02] MEDS: Enoxaparin Sodium 40 MG/0.4 ML SYRINGE SUBCUT (22:27)
[2022-10-02 23:46] VITALS: BP 131/91; PULSE 70; RESP 18; TEMP 36.6; O2SAT 96
[2022-10-03 03:14] VITALS: BP 126/91; PULSE 69; RESP 18; TEMP 36.5; O2SAT 99
[2022-10-03] MEDS: Omeprazole 20 MG CAPSULE.DR PO ×2 (04:16→16:21)
[2022-10-03] MEDS: oxyCODONE HCl Immed Release 5 MG TABLET PO (04:16)
[2022-10-03 08:00] VITALS: BP 142/93; PULSE 85; RESP 20; TEMP 36.5
[2022-10-03] MEDS: 0.9 % Sodium Chloride Flush 3 ML SYRINGE IVFLUSH ×2 (09:32→16:21)
[2022-10-03] MEDS: Acetaminophen 325 MG TABLET 650 MG PO ×2 (10:32→16:24)
[2022-10-03] MEDS: oxyCODONE HCl Immed Release 5 MG TABLET 10 MG PO ×2 (10:32→14:23)
--- NOTE | 2022-10-03 12:45 | MHC.CLN ---
NUTRITION CONSULT FOR WEIGHT LOSS. SIGNIFICANT WEIGHT LOSS X 6 MONTHS, -17.2%. PATIENT REPORTS THAT HE IS NOT EATING DUE TO PAIN WHEN HE EATS. WILL DRINK ENSURE CLEAR. PRODUCT IS FAT FREE. ENSURE CLEAR TID PROVIDES ADDITIONAL 720 KCALS, 24 G PROTEIN. DIET=FULL LIQUID. ADVANCE DIET ABLE. CONTINUE ENSURE CLEAR TID.
[2022-10-03] MEDS: Gabapentin 400 MG CAPSULE PO ×2 (13:09→19:53)
--- NOTE | 2022-10-03 15:13 | MHC.CM.PN ---
per rounds pt to have a gi consult and will be dcd home with no servcis
--- NOTE | 2022-10-03 15:29 | P.PNIM_ITS ---
Subjective Subjective Date of Service: 10/03/22 Interval History: complaining of epigastric pain, requesting for IV morphine since trial of oral opiates was given but patient had no benefit with oxycodone complaining of severe pain unable to eat denies nausea,no vomiting, no fevers, no chills no other acute issues Review of Systems Review of Systems: Yes all other systems are reviewed and are negative Physical Exam Vital Signs: Vital Signs: Last Vital Signs Temp 97.7 F 10/03/22 08:00 Pulse 85 10/03/22 08:00 Resp 20 10/03/22 08:00 BP 142/93 H 10/03/22 08:00 Pulse Ox 99 10/03/22 03:14 O2 Del Method 10/03/22 03:14 BMI result Body Mass Index 20.0 Const: Other: General awake alert x3, anxious anicteric sclera Neck supple no JVD. CVS regular rate rhythm, Respiratory lungs clear to auscultation, no respiratory distress, no wheeze, no rhonchi. Gastrointestinal abdomen epigastric tenderness, soft, bowel sounds audible Extremities no edema. Neuro nonfocal ,speech clear. Skin no rash psych appropriate affect Objective Data Active Medications Acetaminophen (Acetaminophen 325 Mg Tablet) 650 mg PO Q6H PRN PRN Reason: Pain, Mild (Pain Scale 1-3) Last Admin: 10/03/22 10:32 Dose: 650 mg Documented By: FAUSTO Lipase/Protease/Amylase (Lipase/Prot/Amylase 24/76/120k 1 Cap Capsule.Dr) 1 cap PO TIDWM [facility] Last Admin: 10/03/22 13:09 Dose: Not Given Documented By: FAUSTO Non-Admin Reason: Patient Refused Docusate Sodium (Docusate Sodium 100 Mg Capsule) 200 mg PO BEDTIME [facility] Last Admin: 10/02/22 21:08 Dose: 200 mg Documented By: XENA Enoxaparin Sodium (Enoxaparin Sodium 40 Mg/0.4 Ml Syringe) 40 mg SUBCUT Q24H [facility] Last Admin: 10/02/22 22:27 Dose: 40 mg Documented By: XENA Gabapentin (Gabapentin 400 Mg Capsule) 400 mg PO TID [facility] Last Admin: 10/03/22 13:09 Dose: 400 mg Documented By: HO.NGENOAL Magnesium Hydroxide (Milk Of Magnesia 30 Ml Oral.Susp) 30 ml PO DAILY PRN PRN Reason: Constipation Melatonin (Melatonin 3 Mg Tablet) 6 mg PO BEDTIME PRN PRN Reason: Insomnia Last Admin: 10/02/22 21:10 Dose: 6 mg Documented By: XENA Omeprazole (Omeprazole 20 Mg Capsule.Dr) 20 mg PO BID@0630,1630 [facility] Last Admin: 10/03/22 04:16 Dose: 20 mg Documented By: XENA Ondansetron HCl (Ondansetron Hcl 4 Mg/2 Ml Vial) 4 mg IVPUSH Q8H PRN PRN Reason: Nausea and Vomiting Last Admin: 09/30/22 09:46 Dose: 4 mg Documented By: EKTA Oxycodone HCl (Oxycodone Hcl Immed Release 5 Mg Tablet) 10 mg PO Q4H PRN PRN Reason: Pain, Severe (Pain Scale 7-10) Last Admin: 10/03/22 14:23 Dose: 10 mg Documented By: NATHALY Pharmacy Consult (Consult Rx Perform Med Rec) 1 each MISCELLANE ONCE PRN PRN Reason: Consult order Polyethylene Glycol (Polyethylene Glycol 3350 17 Gm Powd.Pack) 17 gm PO DAILY [facility] Last Admin: 10/03/22 09:33 Dose: Not Given Documented By: FAUSTO Non-Admin Reason: Patient Refused Sodium Chloride (0.9 % Sodium Chloride Flush 3 Ml Syringe) 3 ml IVFLUSH QSHIFT [facility] Last Admin: 10/03/22 09:32 Dose: 3 ml Documented By: FAUSTO Labs 10/01/22 06:07 10/02/22 06:22 Assessment and Plan (1) Chronic alcoholic pancreatitis: Status: Acute (2) Pancreatic pseudocyst: Status: Acute (3) GERD (gastroesophageal reflux disease): Status: Acute Plan 52-year-old male with pertinent history of gastroesophageal reflux disease, history of alcohol induced pancreatitis presents to the emergency department for evaluation of abdominal pain. #.? Abdominal pain of 2 weeks duration, pain worse with eating likely due to chronic pancreatitis with worsening pseudocyst, with elevated lipase and amylase, no history of recent alcohol use last alcohol intake was greater than 1 year ago alcohol level less than 10, CT abdomen and pelvis showed large pseudocysts in the neck of the pancreas measuring 5.8 in to 6 cm and a 2nd large pseudocyst in the head of the pancreas measuring 5.3 in 24.7 cm, previously cyst in the body was measured at 2.1 cm in disease April of 2021,, extensive calcification along the pancreatic cyst in the body of the pancreas is also new , elevated lipase and amylase due to pseudocyst,patient was treated with IV fluids, IV morphine, patient unable to tolerate diet due to worsening pain currently on full liquid diet, repeat CT abdomen and pelvis she shows no change in cyst patient followed closely by firewall security engineer Dr. Hammonds recommend endoscopic drainage therefore called [facility] they do not have beds, called [facility] sent patient face sheet as well as CT abdomen and pelvis films waiting to hear back from them meanwhile will continue supportive care with analgesics, continue Prilosec. DVT prophylaxis:? Lovenox 40 mg daily Full code Liquid diet.? Advance as tolerated patient need continued inpatient hospitalization for management of abdominal pain/acute pancreatitis and pseudocyst receiving IV morphine. Time Spent With Patient Time: Total time managing care of this patient today ____ minutes. Quality Stroke Does the patient have a stroke diagnosis?: No VTE Prior VTE?: No VTE Risk Level:: Medical - moderate - high VTE Device Contraindication: Treatment Not Indicated VTE Drug Contraindication: N/A - Med Ordered
[2022-10-03 15:48] VITALS: BP 131/63; PULSE 74; RESP 20; TEMP 36.3; O2SAT 98
--- NOTE | 2022-10-03 16:15 | PM.DS ---
DS: Providers Provider Date of Service: 10/03/22 Date of admission: 09/29/22 23:14 Primary care physician: BERTRAM Vogt Consults: 09/30/22 00:27 Consult to Physician Routine Consulting Provider: eD Kang Reason for consultation: Drainage of pseudocyst 09/30/22 08:04 Consult to Gastroenterology Routine Consulting Provider: Erik Martínez Reason for consultation: pseudocyst Has provider been notified: No DS: Diagnosis Discharge Diagnosis (1) Chronic alcoholic pancreatitis: Status: Acute (2) Pancreatic pseudocyst: Status: Acute (3) GERD (gastroesophageal reflux disease): Status: Acute DS: Summary Hospital Course Hospital Course: history of presenting illness Date of Service: 09/29/22 Chief Complaint: Abdominal Pain This is a 52-year-old male with pertinent history of gastroesophageal reflux disease, history of alcohol induced pancreatitis presents to the emergency department for evaluation of abdominal pain.? Patient states he has had epigastric abdominal pain for about 7-10 days now.? It is constant, worse with p.o. intake, no relieving factors, radiating to the sides and associated with nausea.? Patient is unable to tolerate any p.o. intake due to nausea and pain.? States his last alcohol use was 7 months ago.? No fever, chills.? Patient denies chest discomfort, palpitations, shortness of breath, changes in urinary or bowel habits. In the emergency department, CT with pseudocyst and concerning for pancreatitis.? Lipase was elevated hospital course 52-year-old male with pertinent history of gastroesophageal reflux disease, history of alcohol induced pancreatitis presents to the emergency department for evaluation of abdominal pain. #.? Abdominal pain? of 2 weeks duration, pain worse with eating likely due to chronic pancreatitis with worsening pseudocyst, with elevated lipase and amylase, no history of recent alcohol use last alcohol intake was greater than 1 year ago alcohol level less than 10, CT abdomen and pelvis showed large pseudocysts in the neck of the pancreas measuring 5.8 in to 6 cm and a 2nd large pseudocyst in the head of the pancreas measuring 5.3 x 4.7 cm, previously cyst? in the body was measured at 2.1 cm in April of 2021,, extensive calcification along the pancreatic cyst in the body of the pancreas is also new , patient was treated with IV fluids, IV morphine, patient unable to tolerate diet due to severe pain currently on full liquid diet, repeat CT abdomen and pelvis shows no change in cyst patient followed closely by patroller Dr. Hammonds? she recommended endoscopic drainage of cyst therefore patient is being discharged to [facility] under care of Dr. Gregory Walker in regard to GERD patient has been continued on Prilosec. patient remained hemodynamically stable with no fevers no chills, with normal electrolytes and CBC. ?? ? Time Spent with Patient Time attestation: Total time managing care of this patient today ____ minutes. Discharge coordination time: Greater than 30 minutes Quality: Safe Use of Opioids Does Pt have an Active Cancer Diagnosis on the Problem List?: No Quality: Stroke Does the patient have a stroke diagnosis?: No Physical Exam Vital Signs: Vital Signs: Last Vital Signs Temp 97.4 F 10/03/22 15:48 Pulse 74 10/03/22 15:48 Resp 20 10/03/22 15:48 BP 131/63 10/03/22 15:48 Pulse Ox 98 10/03/22 15:48 O2 Del Method 10/03/22 15:48 BMI result Body Mass Index 20.0 Const: Other: General? awake alert x3, Mild distress due to pain anicteric sclera Neck supple no JVD. CVS? regular rate rhythm, Respiratory lungs clear to auscultation, no respiratory distress, no wheeze, no rhonchi. Gastrointestinal abdomen? epigastric tenderness, soft,? bowel sounds audible Extremities no edema. Neuro nonfocal ,speech clear. Skin no rash psych appropriate affect Discharge Plan Discharge Anticipated Discharge Date/Time: 10/03/22 16:31 Patient Disposition: Xfer Acute Care Hospital Discharge Diagnosis: abdominal pain due to pancreatic pseudocyst Referrals: Leta Rutherford FNP [Primary Care Provider] - 1 Week Discharge Medications: New morphine 4 mg/mL Syringe 4 mg IVPUSH Q4H PRN (Reason: Pain, Severe (Pain Scale 7-10)) Qty: 6 0RF Protocol: Hold for RR < HOLD and contact provider for RR < (bpm): 12 Rx Instructions: Partial Fill upon patient request. polyethylene glycol 3350 17 gram Powder In Packet 17 g PO DAILY Qty: 30 0RF docusate sodium [Colace] 100 mg capsule 200 mg PO DAILY Qty: 20 0RF magnesium hydroxide [Milk of Magnesia] 400 mg/5 mL Suspension 30 ml PO DAILY PRN (Reason: Constipation) Qty: 355 0RF Creon 24,000-76,000 -120,000 unit Capsule,Delayed Release(Dr/Ec) 1 cap PO TIDWM Qty: 60 0RF Continued gabapentin 400 mg capsule 1 cap PO TID whjoltrgoh-niyhlgakupjgq-djce 50-325-40 mg tablet 1 tab PO Q12H PRN (Reason: Pain) omeprazole 20 mg capsule,delayed release(DR/EC) 1 cap PO BID cyclobenzaprine 5 mg tablet 1 tab PO Q8H PRN (Reason: muscle spasm) Discontinued atorvastatin 10 mg tablet 1 tab PO BEDTIME ibuprofen 400 mg tablet 1 tab PO Q8H PRN (Reason: Pain) Discharge Orders: Discharge Order (Routine); Ordered 10/03/22 Ordered By: Aura Moreno Diet: full liquid Activity on Discharge: As tolerated Stand Alone Forms: Patient Portal Discharge page Care Plan Goals: pancreatic pseudocyst, with persistent epigastric pain unable to tolerate diet therefore being transferred to [facility] for endoscopic drainage by Gastroenterology Health Concerns: continue medication as above Plan of Treatment: outpatient follow-up with PCP and Gastroenterology Assessment: as above
[2022-10-03] MEDS: Morphine Sulfate 4 MG/ML CARTRIDGE IVPUSH ×2 (16:21→19:51)
[2022-10-03] MEDS: Milk of Magnesia 30 ML ORAL.SUSP PO (17:48)
[2022-10-03 18:33] VITALS: BP 129/67; PULSE 78; RESP 18; TEMP 36.6; O2SAT 99
== END 2022-10-03 19:56 | disposition short-term general hospital (02) | DRG 282 ==
LOC: HO.ED 23:24 → HO.EDOVER 23:32 → HO.IMC 09-30 15:41
PROVIDERS: Physician Assistant; Admitting Provider Student in an Organized Health Care Education/Training Program; Emergency Provider Emergency Medicine Emergency Medical Services; PCP Registered Nurse; Visit Provider Hospitalist
DX: K86.3 Pseudocyst of pancreas (principal); K21.9 Gastro-esophageal reflux disease without esophagitis; K85.90 Acute pancreatitis without necrosis or infection, unspecified; K86.1 Other chronic pancreatitis; Z20.822 Contact with and (suspected) exposure to COVID-19; Z87.891 Personal history of nicotine dependence; Z79.899 Other long term (current) drug therapy
CPT/HCPCS: 36415; 74176; 74177; 80048; 80053; 80061; 80076; 80307; 81001; 82077; 82150; 83605; 83690; 83735; 84478; 85025; 85027; 87635; 99285; J1170; J1650; J2270; J2405; Q9967

== ENCOUNTER 2023-03-07 15:58 | Outpatient (REF) | payer MEDICAID, SELFPAY ==
[2023-03-07 18:45] LABS: MANUAL DIFF FLAG NO
[2023-03-07 18:46] LABS: Basophils Percent Auto 0.3 % (0-2); Eosinophils Absolute Auto 0.3 X10*3/uL (0.0-0.4); Eosinophils Percent Auto 3.3 % (0-4); Hematocrit 39.4 % (42.0-52.0); Hemoglobin 12.9 g/dl (14.0-18.0); Imm Gran Abs Auto 0.02 X10*3/uL (0.00-0.03); Imm Gran Pct Auto 0.2 % (0.0-0.4); Lymphocytes Percent Auto 31.9 % (20-40); Mean Corpuscular HGB Conc 32.7 g/dl (31.0-36.0); Mean Corpuscular Hemoglobin 29.5 pg (27.0-33.0); Mean Corpuscular Volume 90.2 fL (80.0-98.0); Mean Platelet Volume 11.1 fL (9.4-12.4); Monocytes Absolute Auto 0.6 X10*3/uL (0.1-1.2); Monocytes Percent Auto 6.2 % (2-11); Neutrophils Absolute Auto 5.5 x10*3/uL (2.0-8.3); Neutrophils Percent Auto 58.1 % (45-73); Platelet Count 346 X10*3/uL (160-400); Red Blood Count 4.37 X10*6/uL (4.60-5.80); Red Cell Distribution Width 15.5 % (11.0-16.0); White Blood Count 9.5 X10*3/uL (4.8-10.8)
[2023-03-07 19:03] LABS: Alanine Aminotransferase 9 U/L (0-40); Albumin Level 3.8 g/dL (3.5-5.0); Alkaline Phosphatase 93 U/L (39-117); Amylase 124 U/L (28-100); Anion Gap 12 (12-20); Aspartate Amino Transferase 12 U/L (5-37); Bilirubin Total 0.2 mg/dL (0.0-1.0); Blood Urea Nitrogen 5 mg/dL (9-16); Calcium 9.3 mg/dL (8.4-10.2); Carbon Dioxide 28 mmol/L (22-29); Chloride 104 mmol/L (96-108); Cholesterol 207 mg/dL; Estimated Glomerular Filt Rate > 60; Glucose Random 75 mg/dL (60-115); HDL Cholesterol 38 mg/dL; LDL Cholesterol Calculated 149 mg/dl; Lipase 98 U/L (8-78); Potassium 4.1 mmol/L (3.3-5.1); Sodium 140 mmol/L (135-145); Triglycerides 104 mg/dL
[2023-03-08 07:22] LABS: Estimated Average Glucose 108 mg/dL; Hemoglobin A1c % 5.4 %
== END 2023-03-07 15:59 | disposition home or self-care (01) ==
LOC: HO.HHCL 15:58
PROVIDERS: Visit Provider Registered Nurse
DX: Z00.00 Encounter for general adult medical examination without abnormal findings (principal)
CPT/HCPCS: 36415; 80053; 80061; 82150; 83036; 83690; 85025

== ENCOUNTER 2023-03-08 12:19 | Outpatient (REF) | payer MEDICAID, SELFPAY ==
[2023-03-08 14:48] LABS: Iron 70 mcg/dL (45-160); Percent Iron Saturation 31 % (15-50); Total Iron Binding Capacity 227 mcg/dL (228-428); Unsaturated Iron Binding 157 ug/dL
[2023-03-08 14:57] LABS: Ferritin 173 ng/mL (20-250)
[2023-03-08 15:14] LABS: Folate 3.4 ng/mL (> or = 4.0); Vitamin B12 328 pg/mL (200-900)
== END 2023-03-08 12:20 | disposition home or self-care (01) ==
LOC: HO.HHCL 12:19
PROVIDERS: Visit Provider Registered Nurse
DX: D64.9 Anemia, unspecified (principal)
CPT/HCPCS: 36415; 82607; 82728; 82746; 83540

== ENCOUNTER 2023-03-09 09:54 | Outpatient (REF) | payer MEDICAID, SELFPAY ==
--- NOTE | ~2023-03-09 | CT_ITS ---
EXAMINATION: CT ABDOMEN AND PELVIS WITHOUT AND WITH CONTRAST CLINICAL INFORMATION: Chronic pancreatitis; pancreatic pseudocyst. COMPARISON: Prior CT examinations, most recently 10/03/2022. TECHNIQUE: Multidetector volumetric imaging was performed of the abdomen and pelvis before and after the IV administration of 85 mL of Omnipaque 350 intravenous contrast. Sagittal and coronal reformatted images were obtained on the technologist's workstation. This CT examination was performed using dose optimization techniques as appropriate, variously including the following: *Automated exposure control *Adjustment of mA and/or kV according to patient size (this includes techniques or standardized protocols for targeted exams where dose is matched to indication/reason for exam; i.e. extremities or head) *Use of iterative reconstruction technique DLP: 407 mGy-cm FINDINGS: LUNG BASES: The visualized lung bases are unremarkable. LIVER, GALLBLADDER, AND BILIARY TREE: The liver is normal in size, shape, and attenuation. No focal hepatic lesion or biliary ductal dilatation is present. The gallbladder is unremarkable with no evidence of radiopaque gallstones, gallbladder wall thickening, or obvious pericholecystic inflammatory changes. PANCREAS: The previously noted pseudocyst within the pancreatic neck is now largely decompressed, with indwelling catheter pigtail tip. There are 3 further pancreatic head pseudocysts measuring 3.1 x 2.3 cm, 1.0 cm and 1.0 cm (9:72, 60 and 81). There is mild peripancreatic free fluid noted, particularly adjacent to the neck portion. There are multiple pancreatic calcifications, consistent with old, healed pancreatitis. The pancreatic duct is dilated to 6 mm (9:51). SPLEEN: Unremarkable ADRENAL GLANDS: Unremarkable KIDNEYS AND URETERS: The kidneys are normal in size, shape, and attenuation. No hydronephrosis, hydroureter, or calculi seen. No perinephric stranding. BLADDER: Unremarkable GASTROINTESTINAL TRACT: There is a large colonic stool burden. No obstruction, free air or abscess is seen. There is no focal bowel wall thickening. The vermiform appendix appears normal. ABDOMINAL WALL: No significant hernia is appreciated. LYMPH NODES: Normal VASCULAR: No abdominal aortic aneurysm or dissection is seen. An inferior vena cava filter device is noted. PELVIC VISCERA: The prostate and seminal vesicles are unremarkable. There is mild free fluid in the cul-de-sac. OSSEOUS STRUCTURES: There is marked degenerative disc disease at L5-S1. There are old, healed left pelvic fractures, with intact orthopedic fixator plate and screws. There is arthritic change of the left hip. No acute or aggressive osseous abnormality is noted. CT/CT abdomen pelvis wo/w IV con IMPRESSION: There is interim decrease in pancreatic pseudocyst formation. The dominant cyst has been largely evacuated by the patient's drainage catheter. Smaller, diminished pseudocysts within the pancreatic head are of dimensions as detailed above. There is persistent mild peripancreatic acute fluid, which also has diminished. A small amount of free fluid remains in the cul-de-sac. Fleischner guidelines were followed.
[2023-03-09] MEDS: iohexoL 350 MG/ML 100 ML INFUS..BTL IV (11:03)
== END 2023-03-09 09:55 | disposition home or self-care (01) ==
LOC: HO.CT 09:54
PROVIDERS: Visit Provider Registered Nurse
DX: K86.1 Other chronic pancreatitis (principal); K86.2 Cyst of pancreas; K86.3 Pseudocyst of pancreas
CPT/HCPCS: 74178; Q9967

== ENCOUNTER 2023-03-27 09:13 | Outpatient (AMB) | payer MEDICAID, SELFPAY ==
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
[2023-03-27 09:32] VITALS: BP 118/72; PULSE 61; RESP 16; O2SAT 99; BMI 21.6
== END 2023-03-27 10:07 | disposition home or self-care (01) ==
PROVIDERS: PCP Registered Nurse; Visit Provider Anesthesiology
DX: G90.522 Complex regional pain syndrome I of left lower limb (principal); G89.4 Chronic pain syndrome; S32.82XS Multiple fractures of pelvis without disruption of pelvic ring, sequela
CPT/HCPCS: 99204

== ENCOUNTER → 2023-03-27 09:13 | Outpatient (BNVA) | payer MEDICAID, SELFPAY | PROVIDERS: PCP Registered Nurse; Visit Provider Anesthesiology ==

== ENCOUNTER → 2023-04-13 13:00 | Outpatient (BNVA) | payer MEDICAID, SELFPAY | PROVIDERS: PCP Registered Nurse; Visit Provider Anesthesiology ==

== ENCOUNTER 2023-07-27 14:49 | Outpatient (REF) | payer MEDICAID, SELFPAY ==
[2023-07-27 16:10] LABS: MANUAL DIFF FLAG NO
[2023-07-27 16:14] LABS: Basophils Percent Auto 0.2 % (0-2); Eosinophils Absolute Auto 0.1 X10*3/uL (0.0-0.4); Eosinophils Percent Auto 0.7 % (0-4); Hematocrit 38.6 % (42.0-52.0); Hemoglobin 12.7 g/dl (14.0-18.0); Imm Gran Abs Auto 0.04 X10*3/uL (0.00-0.03); Imm Gran Pct Auto 0.3 % (0.0-0.4); Lymphocytes Absolute Auto 2.3 X10*3/uL (1.2-4.9); Lymphocytes Percent Auto 16.4 % (20-40); Mean Corpuscular HGB Conc 32.9 g/dl (31.0-36.0); Mean Corpuscular Hemoglobin 29.1 pg (27.0-33.0); Mean Corpuscular Volume 88.5 fL (80.0-98.0); Mean Platelet Volume 10.9 fL (9.4-12.4); Monocytes Percent Auto 6.9 % (2-11); Neutrophils Absolute Auto 10.4 x10*3/uL (2.0-8.3); Neutrophils Percent Auto 75.5 % (45-73); Platelet Count 446 X10*3/uL (160-400); Red Blood Count 4.36 X10*6/uL (4.60-5.80); Red Cell Distribution Width 14.6 % (11.0-16.0); White Blood Count 13.8 X10*3/uL (4.8-10.8)
[2023-07-27 17:03] LABS: Folate 8.6 ng/mL (> or = 4.0); Vitamin B12 368 pg/mL (200-900)
== END 2023-07-27 14:50 | disposition home or self-care (01) ==
LOC: HO.HHCL 14:49
PROVIDERS: Visit Provider Internal Medicine
DX: D64.9 Anemia, unspecified (principal)
CPT/HCPCS: 36415; 82607; 82746; 85025

== ENCOUNTER 2023-09-05 14:47 | Outpatient (AMB) | payer MEDICAID, SELFPAY ==
[2023-09-05 14:53] VITALS: BP 104/66; PULSE 70; BMI 20.8
--- NOTE | 2023-09-05 14:53 | A.OFFVIS_ITS ---
Intake Vital Signs 09/05/23 14:53 Height 5 ft 5 in Weight 125 lb 3.561 oz BMI 20.8 BP 104/66 Blood Pressure Location Lt brachial Position Sitting Pulse 70 Intake Visit Reasons: Chronic Pancreatitis-Chronic Alcoholism Intake Note: New patient presents to in office visit today for chronic pancreatitis. CC:Patient c/o intermittent LUQ abdominal pain, with onset about a month and a half ago. Pain scale 8/10 per patient. Patient also c/o constipation and heartburn. Patient taking abx given by his dentist yesterday, but he does not remember the name. Registered Route Associate Required: No Accompanied by: Self / Same As Patient Allergies No Known Allergies Allergy (Verified 09/05/23 14:57) HPI HPI Comments History of Present Illness Details This is a 53-year-old gentleman who was seen in the hospital last year for pancreatitis with peripancreatic fluid collection measuring up to 6 cm. He required transfer to [facility] for endoscopic guided cyst gastrostomy. He presents today to establish care with Gastroenterology. Patient does not report any recurrent episodes of pancreatitis since then. However, he does report flare up of similar pain that he experienced last year, over the past 4-6 weeks. With this, he has also had decreased appetite and feeling of early satiety. Reports losing 10 lb in the last 2 months. He did not have a follow-up with [facility] Gastroenterology, and per mos t recent CT scan February 2023, pigtail stent is still in place, which should have been removed within 4-6 weeks of the procedure. [facility] Medical History Pancreatitis GERD (gastroesophageal reflux disease) Pancreatitis Surgical History History of mandibular surgery H/O left wrist surgery History of hip surgery Social History Household Members: Significant Other Housing: Apartment Do you presently have visiting nurse or other home services: No Alcohol intake: former Patient Tobacco Use Status: Former Tobacco user Tobacco use type: Cigarette e-Cigarette/Vaping Use: Never Used Second Hand Smoke Exposure: No Substance Use Type: Marijuana service: No Current occupational status: disabled Review of Systems Const All systems reviewed & are unremarkable except as noted in HPI and below Physical Exam Vital Signs: Last Vital Signs Pulse 70 09/05/23 14:53 BP 104/66 09/05/23 14:53 BMI result Body Mass Index 20.8 Gen appear: NAD HEENT: nonicteric, no cervical lymphadenopathy Chest: CTA CVS: Regular S1/S2 Abd: soft, tender, mildly distended, bowel sounds + Ext: no peripheral edema Neuro: A/Ox3, noted to move all extremities spontaneously Psych: interacting appropriately Assessment & Plan Assessment & Plan (1) Pancreatic pseudocyst: Code(s): K86.3 - Pseudocyst of pancreas Plan Patient was informed that he will need to see [facility] Gastroenterology on an urgent basis to get the stent removed. In addition, given his symptoms, we will get a repeat CT scan to r/o recurrent pancreatic pseudocyst versus migration of the stent. Labs ordered as well sandoval to r/o anemia, recheck panc function and get updated renal function for CT scan. Will request senior officer to obtain records from [facility] from September 2022 to assist pt in routing him to the correct provider. Follow up based on above Orders: Orders CT abdomen pelvis w IV con 09/05/23 K86.3 - Pseudocyst of pancreas Complete Blood Count no Diff 09/05/23 K86.0 - Alcohol-induced chronic pancreatitis Comprehensive Met. Panel 09/05/23 K86.0 - Alcohol-induced chronic pancreatitis Lipase 09/05/23 K86.0 - Alcohol-induced chronic pancreatitis Coding Level of Care Code Est Pt Level 4 (07311) Diagnoses Pancreatic pseudocyst K86.3
== END 2023-09-05 15:42 | disposition home or self-care (01) ==
PROVIDERS: PCP Registered Nurse; Visit Provider Internal Medicine
DX: K86.3 Pseudocyst of pancreas (principal)
CPT/HCPCS: 99214

== ENCOUNTER → 2023-09-05 14:47 | Outpatient (BNVA) | payer MEDICAID, SELFPAY | PROVIDERS: PCP Registered Nurse; Visit Provider Internal Medicine | DX: K86.3 Pseudocyst of pancreas (principal) | CPT/HCPCS: 99212 ==

== ENCOUNTER 2023-09-05 15:51 | Outpatient (REF) | payer MEDICAID, SELFPAY ==
[2023-09-05 17:32] LABS: Hematocrit 37.4 % (42.0-52.0); Hemoglobin 12.4 g/dl (14.0-18.0); Mean Corpuscular HGB Conc 33.2 g/dl (31.0-36.0); Mean Corpuscular Hemoglobin 29.1 pg (27.0-33.0); Mean Corpuscular Volume 87.8 fL (80.0-98.0); Mean Platelet Volume 10.8 fL (9.4-12.4); Platelet Count 350 X10*3/uL (160-400); Red Blood Count 4.26 X10*6/uL (4.60-5.80); Red Cell Distribution Width 16.1 % (11.0-16.0); White Blood Count 6.2 X10*3/uL (4.8-10.8)
[2023-09-05 18:04] LABS: Alanine Aminotransferase 14 U/L (0-40); Albumin Level 3.8 g/dL (3.5-5.0); Alkaline Phosphatase 102 U/L (39-117); Anion Gap 15 (12-20); Aspartate Amino Transferase 17 U/L (5-37); Bilirubin Total 0.3 mg/dL (0.0-1.0); Blood Urea Nitrogen 7 mg/dL (9-16); Carbon Dioxide 26 mmol/L (22-29); Chloride 104 mmol/L (96-108); Estimated Glomerular Filt Rate > 60; Glucose Random 69 mg/dL (60-115); Lipase 47 U/L (8-78); Potassium 3.9 mmol/L (3.3-5.1); Sodium 141 mmol/L (135-145); Total Protein 7.2 g/dL (6.5-8.0)
== END 2023-09-05 15:52 | disposition home or self-care (01) ==
LOC: HO.HHCL 15:51
PROVIDERS: Visit Provider Internal Medicine
DX: K86.0 Alcohol-induced chronic pancreatitis (principal)
CPT/HCPCS: 36415; 80053; 83690; 85027; 99212

== ENCOUNTER 2023-09-14 11:14 | Outpatient (REF) | payer MEDICAID, SELFPAY ==
--- NOTE | ~2023-09-14 | CT_ITS ---
EXAMINATION: CT ABDOMEN AND PELVIS WITH CONTRAST CLINICAL INFORMATION: Pseudocyst of pancreas COMPARISON: 03/09/2023 TECHNIQUE: Multidetector volumetric images were obtained from the superior aspect of the liver through the pubic symphysis following administration 85 mL of Omnipaque 350 intravenous contrast. Sagittal and coronal reformatted images were obtained on the technologist's workstation. Oral contrast: No This CT examination was performed using dose optimization techniques as appropriate, variously including the following: *Automated exposure control *Adjustment of mA and/or kV according to patient size (this includes techniques or standardized protocols for targeted exams where dose is matched to indication/reason for exam; i.e. extremities or head) *Use of iterative reconstruction technique DLP: 242 mGy-cm FINDINGS: LUNG BASES: The visualized lung bases are unremarkable. LIVER, GALLBLADDER, AND BILIARY TREE: The liver is normal in size, shape, and attenuation. No focal hepatic lesion or biliary ductal dilatation is present. Gallbladder is contracted. PANCREAS: There is stable position of pigtail catheter. Pseudocysts diminished in size in comparison to the previous study measured now 1.5 x 1.4 cm, 1.5 x 0.4 cm on the current examination. There is air in the pancreatic duct and multiple calcifications. There is peripancreatic stranding SPLEEN: Unremarkable. ADRENAL GLANDS: Unremarkable. KIDNEYS AND URETERS: The kidneys are normal in size, shape, and attenuation. No hydronephrosis, hydroureter, or calculi seen. No perinephric stranding. BLADDER: Urinary bladder is overdistended without masses or stones GASTROINTESTINAL TRACT: The small and large bowel are unremarkable. The appendix is unremarkable. ABDOMINAL WALL: No significant hernia is appreciated. LYMPH NODES: Normal. VASCULAR: There is IVC filter present. The abdominal aorta is nondilated PELVIC VISCERA: Unremarkable. OSSEOUS STRUCTURES: There are degenerative changes at the level of L5-S1 with disc space narrowing and subchondral sclerosis and there is healed fracture of the left hemipelvis with ORIF in place. Degenerative changes in the left hip joint CT/CT abdomen pelvis w IV con IMPRESSION: 1. Stable position of pigtail drainage catheter with decrease in size of pseudocyst. 2. Chronic pancreatitis. 3. Overdistended urinary bladder. 4. Degenerative changes at the level of L5-S1 and left hip joint. Fleischner guidelines were followed.
[2023-09-14] MEDS: iohexoL 350 MG/ML 100 ML INFUS..BTL 85 ML IV (14:01)
== END 2023-09-14 11:15 | disposition home or self-care (01) ==
LOC: HO.CT 11:14
PROVIDERS: PCP Registered Nurse; Visit Provider Internal Medicine
DX: K86.3 Pseudocyst of pancreas (principal)
CPT/HCPCS: 74177; Q9967

== ENCOUNTER 2024-07-11 15:38 | Outpatient (REF) | payer MEDICAID, SELFPAY ==
--- OUTSIDE RECORDS SUMMARY | 2024-07-11 15:39 | XMS_ITS ---
Author Name [facility] Organization Unknown History of Medication Use Medication Directions Dispensed Refills Start Date End Date Stat us gabapentin (NEURONTIN) 400 MG capsule Take 1 capsule (400 mg total) by mouth 3 (three) times a day. 11/05/2022 active ibuprofen (MOTRIN) 400 MG tablet Take 1 tablet (400 mg total) by mouth 3 (three) times a day as needed for pain, breakthrough. 11/05/2022 active OMEprazole (PriLOSEC) 20 MG capsule Take 1 capsule (20 mg total) by mouth 2 (two) times a day. 11/05/2022 active cyclobenzaprine (FLEXERIL) 5 MG tablet Take 1 tablet (5 mg total) by mouth 3 (three) times a day as needed for pain, breakthrough. 11/05/2022 active Calcium Carb-Cholecalciferol (Oyster Shell Calcium w/D) 500-5 MG-MCG Tab Take 1 tablet by mouth daily. 11/05/2022 active atorvastatin (LIPITOR) 10 MG tablet Take 1 tablet (10 mg total) by mouth nightly. 11/05/2022 active acetaminophen-codeine (TYLENOL #3) 300-30 MG per tablet Take 1 tablet by mouth 3 times daily (every 8 hours) as needed. for pain Max Daily Amount: 3 tablets 11/05/2022 active Problems Problem Status Onset Date Problem Type Date of Resoluti on Source Pancreatic pseudocyst active 2022-10-03 ProblemAct CCT Intractable abdominal pain active 2022-10-03 ProblemAct CCT
[2024-07-11 16:42] LABS: MANUAL DIFF FLAG NO
[2024-07-11 16:44] LABS: Basophils Absolute Auto 0.1 X10*3/uL (0.0-0.2); Basophils Percent Auto 0.3 % (0-2); Eosinophils Absolute Auto 0.5 X10*3/uL (0.0-0.4); Hematocrit 33.9 % (42.0-52.0); Hemoglobin 11.3 g/dl (14.0-18.0); Imm Gran Abs Auto 0.07 X10*3/uL (0.00-0.03); Imm Gran Pct Auto 0.4 % (0.0-0.4); Lymphocytes Absolute Auto 2.7 X10*3/uL (1.2-4.9); Lymphocytes Percent Auto 15.6 % (20-40); Mean Corpuscular HGB Conc 33.3 g/dl (31.0-36.0); Mean Corpuscular Hemoglobin 29.4 pg (27.0-33.0); Mean Corpuscular Volume 88.3 fL (80.0-98.0); Mean Platelet Volume 10.9 fL (9.4-12.4); Monocytes Absolute Auto 1.4 X10*3/uL (0.1-1.2); Monocytes Percent Auto 7.9 % (2-11); Neutrophils Absolute Auto 12.7 x10*3/uL (2.0-8.3); Neutrophils Percent Auto 72.8 % (45-73); Platelet Count 421 X10*3/uL (160-400); Red Blood Count 3.84 X10*6/uL (4.60-5.80); Red Cell Distribution Width 14.6 % (11.0-16.0); White Blood Count 17.4 X10*3/uL (4.8-10.8)
[2024-07-11 17:03] LABS: Estimated Average Glucose 108 mg/dL; Hemoglobin A1C 99.0405 umol/L; Hemoglobin A1c % 5.4 % (<6.0); Total Hemoglobin (HGBA1C) 2822.2615 umol/L
[2024-07-11 17:40] LABS: Alanine Aminotransferase 13 U/L (0-40); Albumin Level 3.7 g/dL (3.5-5.0); Alkaline Phosphatase 108 U/L (39-117); Amylase 55 U/L (28-100); Anion Gap 13 (12-20); Aspartate Amino Transferase 20 U/L (5-37); Bilirubin Total 0.3 mg/dL (0.0-1.0); Blood Urea Nitrogen 11 mg/dL (9-16); Calcium 9.7 mg/dL (8.4-10.2); Carbon Dioxide 26 mmol/L (22-29); Chloride 105 mmol/L (96-108); Cholesterol 141 mg/dL (<200); Estimated Glomerular Filt Rate > 60; Glucose Random 80 mg/dL (60-115); HDL Cholesterol 29 mg/dL (>40); LDL Cholesterol Calculated 100 mg/dL (<100); Lipase 29 U/L (8-78); Potassium 3.6 mmol/L (3.3-5.1); Sodium 140 mmol/L (135-145); Total Protein 7.4 g/dL (6.5-8.0); Triglycerides 64 mg/dL (<150)
[2024-07-11 17:57] LABS: TSH reflex Free T4 1.73 uIU/mL (0.32-4.0); Vitamin D 25-OH Total 26.7 ng/mL (>30)
[2024-07-12 09:14] LABS: HIV AB/AG Nonreactive (Nonreactive); HIV Num 1 0.46 S/CO (0.00-0.99); ~HepC Num1 0.26 S/CO (0.00-0.79); ~Hepatitis C Antibody Nonreactive (Nonreactive)
== END 2024-07-11 15:39 | disposition home or self-care (01) ==
LOC: HO.HHCL 15:38
PROVIDERS: Visit Provider Internal Medicine
DX: R10.84 Generalized abdominal pain (principal); Z11.59 Encounter for screening for other viral diseases; Z23 Encounter for immunization
CPT/HCPCS: 36415; 80053; 80061; 82150; 82306; 83036; 83690; 84443; 85025; 86803; 87389

== ENCOUNTER 2024-07-28 13:06 | Emergency (ER) | payer MEDICAID, SELFPAY ==
--- NOTE | ~2024-07-28 | CT_ITS ---
CLINICAL HISTORY: Lower abdominal pain with pancreatic pseudocyst CT abdomen and pelvis with contrast Comparison: CT/REG/SR - CT ABDOMEN PELVIS W IV CON - 09/14/23 13:40 EST Findings: No consolidation or effusion. There are numerous pancreatic calcifications, compatible with chronic pancreatitis. There is mild haziness within the pancreatic mesentery. There is a 4.3 x 1.3 cm walled-off fluid collection adjacent to the pancreatic tail. There is edema of the adjacent proximal duodenum. There is severe thickening of the gallbladder wall and infiltration of the gallbladder mesentery. There is mild dilatation of the common bile duct and the intrahepatic biliary tree. There is a calcified granuloma within the left lobe of the liver. The spleen, adrenal glands and kidneys are unremarkable. No bowel obstruction, pneumoperitoneum, or pneumatosis. There is an inferior vena cava filter. No current evidence of deep venous thrombosis at visualized levels. There is trace pelvic free fluid. Otherwise unremarkable pelvic contents. Appendix not definitively seen. No secondary findings to suggest appendicitis. Surgical hardware and deformity associated with the left bony pelvis without change. No acute fracture. IMPRESSION: 1. There are changes of chronic pancreatitis and superimposed acute pancreatitis associated with a 4.3 cm pseudocyst. 2. There is severe gallbladder edema suggesting acute cholecystitis. There is mild dilatation of the intra and extrahepatic biliary tree. 3. There is secondary edema of the proximal duodenum. This document has been electronically signed by: Deysi Adame MD on 07/28/2024 18:47:49
--- NOTE | ~2024-07-28 | US_ITS ---
EXAMINATION: US ABDOMEN LIMITED CLINICAL INFORMATION: A calculus cholecystitis. COMPARISON: CT abdomen pelvis 07/28/2024 TECHNIQUE: Real-time imaging of the right upper quadrant abdominal viscera. FINDINGS: PANCREAS: Pancreas could not be seen now was obscured by bowel gas. LIVER: The liver is not enlarged. The liver contour is normal. Parenchymal echogenicity is normal. No focal hepatic lesion. There is no intrahepatic biliary duct dilatation seen. GALLBLADDER: Gallbladder is grossly abnormal with a thickened wall containing fluid as well as pericholecystic fluid. Gallstones are visualized. Low sign is positive. COMMON BILE DUCT: Normal in caliber measuring 0.7 cm in diameter. RIGHT KIDNEY: No hydronephrosis. No renal calculi or focal parenchymal lesions. The kidney measures 11.3 cm in maximum dimension. FREE FLUID: Small volume ascites is present around the liver. US/US abdomen limited IMPRESSION: 1. Abnormal gallbladder with thickened wall, pericholecystic fluid and positive Low sign. Findings are consistent with acute cholecystitis. 2. Small volume ascites. Electronically signed by: Chandler Irving MD 07/29/2024 12:39 AM [facility]
[2024-07-28 13:11] VITALS: BP 110/78; PULSE 97; O2SAT 97
[2024-07-28 13:24] VITALS: BP 115/70; PULSE 78; RESP 16; TEMP 36.6; O2SAT 96; BMI 19.6
--- NOTE | 2024-07-28 13:26 | ECG_ITS ---
Test Reason : ABD PAIN Blood Pressure : / mmHG Vent. Rate : 084 BPM Atrial Rate : 084 BPM P-R Int : 130 ms QRS Dur : 086 ms QT Int : 358 ms P-R-T Axes : 058 034 035 degrees QTc Int : 423 ms Normal sinus rhythm Normal ECG No previous ECGs available Referred By: Generic ED Physician Electronically Signed By:NORMA JIMENEZ MD
[2024-07-28 13:55] LABS: INTERNATIONAL NORM RATIO 1.3 (0.9-1.1); Prothrombin Time 14.9 SEC (10.9-12.4)
[2024-07-28 13:56] LABS: Basophils Absolute Auto 0.1 X10*3/uL (0.0-0.2); Basophils Percent Auto 0.2 % (0-2); Eosinophils Absolute Auto 0.2 X10*3/uL (0.0-0.4); Eosinophils Percent Auto 0.8 % (0-4); Hematocrit 35.7 % (42.0-52.0); Imm Gran Abs Auto 0.11 X10*3/uL (0.00-0.03); Imm Gran Pct Auto 0.5 % (0.0-0.4); Lymphocytes Absolute Auto 1.2 X10*3/uL (1.2-4.9); Lymphocytes Percent Auto 5.1 % (20-40); MANUAL DIFF FLAG SCAN; Mean Corpuscular HGB Conc 33.6 g/dl (31.0-36.0); Mean Corpuscular Hemoglobin 29.6 pg (27.0-33.0); Mean Corpuscular Volume 87.9 fL (80.0-98.0); Mean Platelet Volume 10.1 fL (9.4-12.4); Monocytes Absolute Auto 1.6 X10*3/uL (0.1-1.2); Monocytes Percent Auto 6.8 % (2-11); Neutrophils Absolute Auto 20.2 x10*3/uL (2.0-8.3); Neutrophils Percent Auto 86.6 % (45-73); Platelet Count 592 X10*3/uL (160-400); Red Blood Count 4.06 X10*6/uL (4.60-5.80); Red Cell Distribution Width 14.7 % (11.0-16.0); SCAN SMEAR FLAG 1; White Blood Count 23.3 X10*3/uL (4.8-10.8)
[2024-07-28 14:08] LABS: SLIDE REVIEW VERIFIED
[2024-07-28 14:10] LABS: Albumin Level 3.4 g/dL (3.5-5.0); Alkaline Phosphatase 186 U/L (39-117); Anion Gap 11 (12-20); Aspartate Amino Transferase 23 U/L (5-37); Bilirubin Total 0.4 mg/dL (0.0-1.0); Blood Urea Nitrogen 4 mg/dL (9-16); Calcium 9.4 mg/dL (8.4-10.2); Carbon Dioxide 27 mmol/L (22-29); Chloride 103 mmol/L (96-108); Creatinine Clr Calc Pharmacy 88.6; Estimated Glomerular Filt Rate > 60; Glucose Random 154 mg/dL (60-115); Lipase 23 U/L (8-78); Magnesium 1.7 mg/dL (1.6-2.6); Potassium 3.8 mmol/L (3.3-5.1); Sodium 137 mmol/L (135-145); Total Protein 7.2 g/dL (6.5-8.0)
[2024-07-28 14:13] LABS: Troponin-I High Sensitivity < 2.7 ng/L (<3.5-35.0)
[2024-07-28 14:31] LABS: Influenza A PCR NEGATIVE (Negative); Influenza B PCR NEGATIVE (Negative); Resp Syncy Virus RNA Qual PCR NEGATIVE (Negative); SARS COV2 PCR INHOUSE NEGATIVE (Negative)
[2024-07-28 14:51] LABS: Alanine Aminotransferase 34 U/L (0-40)
[2024-07-28 16:25] VITALS: BP 117/72; PULSE 89; RESP 16; TEMP 37.5; O2SAT 95
--- NOTE | 2024-07-28 16:36 | ED_ITS ---
HPI - Abdominal Pain General Chief Complaint: Abdominal Pain Stated Complaint: RLQ PAIN X4D PER EMS Time Seen by Provider: 07/28/24 16:36 Source: patient Mode of arrival: EMS Limitations: no limitations History of Present Illness ED Provider: HPI narrative: Patient is 54 years old with history of alcohol-induced recurrent pancreatitis status post pseudocyst drainage not drinking alcohol anymore for last 2 years comes here for 4 weeks of pain in right side of abdomen mostly in the upper abdomen radiating to the right lower abdomen associated with nausea no fever no chills did not eat any food for last few days because of the pain no history of gallstones patient was transferred to [facility] in 10/23/2022 for drainage of the pseudocyst Related Data Home Medications ?Medication ?Instructions ?Recorded ?Confirmed tpizwgatmx-bbfaedfdeoikg-vhegliye 1 tab PO Q12H PRN Pain 09/30/22 09/30/22 50 mg-325 mg-40 mg tablet cyclobenzaprine 5 mg tablet 1 tab PO Q8H PRN muscle spasm 09/30/22 09/30/22 omeprazole 20 mg capsule,delayed 1 cap PO BID 09/30/22 09/30/22 release acetaminophen 300 mg-codeine 30 mg 1 tab PO Q8H PRN pain 03/27/23 tablet atorvastatin 10 mg tablet 10 mg PO BEDTIME 03/27/23 calcium 500 mg (as 1 tab PO DAILY 03/27/23 carbonate)-vitamin D3 5 mcg (200 unit) tablet (Oyster Shell Calcium-Vitamin D3) gabapentin 600 mg tablet 600 mg PO TID 03/27/23 ibuprofen 400 mg tablet 400 mg PO Q8H PRN 03/27/23 Previous Rx's ?Medication ?Instructions ?Recorded docusate sodium 100 mg capsule 200 mg (2 x 100 mg) PO DAILY #20 10/03/22 (Colace) caps cbsyxo-lchtoasj-muxtvwe 1 cap PO TIDWM #60 caps 10/03/22 24,000-76,000-120,000 unit capsule,delayed rel (Creon) magnesium hydroxide 400 mg/5 mL 30 ml PO DAILY PRN Constipation 10/03/22 oral suspension (Milk of Magnesia) #355 mL polyethylene glycol 3350 17 gram 17 g PO DAILY #30 ea 10/03/22 oral powder packet Allergies Allergy/AdvReac Type Severity Reaction Status Date / Time No Known Allergies Allergy Verified 07/28/24 13:24 Review of Systems Review of Systems Yes all other systems are reviewed and are negative [facility] Past Medical History Medical History Pancreatitis GERD (gastroesophageal reflux disease) Pancreatitis Surgical History History of mandibular surgery H/O left wrist surgery History of hip surgery Social History Social History Household Members: Significant Other Housing: Apartment Do you presently have visiting nurse or other home services: No Alcohol intake: former Patient Tobacco Use Status: Former Tobacco user Tobacco use type: Cigarette Smoked in Last 30 Days: No e-Cigarette/Vaping Use: Never Used Second Hand Smoke Exposure: No Use of substances other than those prescribed or required for medical reasons: Yes Substance Use Type: Marijuana Substance Use Frequency: Daily Advance Directives: No Advance Directives Information Provided: No Do you have a plan to hurt others: No Plan service: No Current occupational status: disabled Physical Exam ED Vital Signs: Vital Signs - 24 hr 07/28/24 13:24 07/28/24 16:25 07/28/24 18:12 Temperature 97.8 F 99.5 F 99.1 F Pulse Rate 78 89 85 Respiratory Rate 16 16 20 Blood Pressure 115/70 117/72 110/70 Pulse Oximetry 96 95 94 Oxygen Delivery Method Room Air Room Air Room Air 07/28/24 19:46 07/28/24 22:02 Temperature 101 F H 98.0 F Pulse Rate 87 99 Respiratory Rate 24 H 18 Blood Pressure 114/69 148/80 H Pulse Oximetry 96 96 Oxygen Delivery Method Room Air Room Air BMI result Body Mass Index 19.6 Appearance: Alert. Oriented X3. No acute distress. In moderate distress Eyes: PERRLA, No Nystagmus no pallor or icterus ENT: Pharynx normal. Oral Mucosa moist Neck: Normal inspection. Neck supple. CVS: Normal heart rate and rhythm. Pulses normal. Respiratory: No respiratory distress. Equal air entry bilateral, no wheezing/rales/rhonchi Abdomen: Soft and tender right upper abdomen Bowel sounds are present, no mass palpable, no CVA tenderness Skin: Skin warm and dry. Normal skin color. Normal skin turgor. Extremities: No lower extremity edema. No calf tenderness Neuro: Oriented X 3. No motor deficit. No sensory deficit.No cerebellar signs , cranial nerves II-XII intact Medical Decision Making Medical Decision Making [facility] Narrative: Patient with acute on chronic pancreatitis with cholecystitis with a gallstone no CBD stone status post pseudocyst drainage in 10/20. Case discussed with GI and surgeon advised to send the patient to tertiary facility for endoscopy ultrasound drainage of pseudocyst as that is possibly the cause for elevated WBC count possible stricture possible needed drainage of the cyst patient has received IV Zosyn 4.5 g on arrival Patient has been accepted at [facility] GI Differential Diagnosis Differential Diagnoses: The differential diagnosis associated with the presentation includes Cholecystitis/pancreatitis/pseudocyst/abscess Admission/Observation Consideration of admission/observation: Escalation of care including admission/observation considered Consult Healthcare Provider Management of the patient was discussed with: For[employer]ender Lab Data [facility] Lab Attestation statement: I reviewed the patient's lab results. 07/28/24 13:39 07/28/24 13:39 Labs: Lab Results 07/28/24 07/28/24 07/28/24 Range/Units 13:39 13:40 16:13 WBC 23.3 H (4.8-10.8) X10*3/uL RBC 4.06 L (4.60-5.80) X10*6/uL Hgb 12.0 L (14.0-18.0) g/dl Hct 35.7 L (42.0-52.0) % MCV 87.9 (80.0-98.0) fL MCH 29.6 (27.0-33.0) pg MCHC 33.6 (31.0-36.0) g/dl RDW 14.7 (11.0-16.0) % Plt Count 592 H D (160-400) X10*3/uL MPV 10.1 (9.4-12.4) fL Immature Gran % (Auto) 0.5 H (0.0-0.4) % Neut % (Auto) 86.6 H (45-73) % Lymph % (Auto) 5.1 L (20-40) % [place] % (Auto) 6.8 (2-11) % Eos % (Auto) 0.8 (0-4) % Baso % (Auto) 0.2 (0-2) % Lymph # (Auto) 1.2 (1.2-4.9) X10*3/uL [place] # (Auto) 1.6 H (0.1-1.2) X10*3/uL Eos # (Auto) 0.2 (0.0-0.4) X10*3/uL Baso # (Auto) 0.1 (0.0-0.2) X10*3/uL Abs Immat Gran (auto) 0.11 H (0.00-0.03) X10*3/uL Absolute Neuts (auto) 20.2 H (2.0-8.3) x10*3/uL Absolute Nucleated RBC 0.000 (0.0-0.012) X10*3/uL Nucleated RBC % (auto) 0.0 (0.0-0.2) /100WBC Smear Tech's Comments VERIFIED Hold Purple Top SEE NOTE PT 14.9 H (10.9-12.4) SEC INR 1.3 H (0.9-1.1) Sodium 137 (135-145) mmol/L Potassium 3.8 (3.3-5.1) mmol/L Chloride 103 (96-108) mmol/L Carbon Dioxide 27 (22-29) mmol/L Anion Gap 11 L (12-20) BUN 4 L (9-16) mg/dL Creatinine 0.76 (0.5-1.4) mg/dL Estim Creat Clear Calc 88.6 Estimated GFR > 60 Random Glucose 154 H (60-115) mg/dL Lactic Acid 0.7 (0.5-2.0) mmol/L Calcium 9.4 (8.4-10.2) mg/dL Magnesium 1.7 (1.6-2.6) mg/dL Total Bilirubin 0.4 (0.0-1.0) mg/dL AST 23 (5-37) U/L ALT 34 (0-40) U/L Alkaline Phosphatase 186 H (39-117) U/L Troponin I High Sens < 2.7 (<3.5-35.0) ng/L Total Protein 7.2 (6.5-8.0) g/dL Albumin 3.4 L (3.5-5.0) g/dL Lipase 23 (8-78) U/L Urine Color Urine Appearance Urine pH (5.0-9.0) Ur Specific [place] (1.005-1.025) Urine Protein (Neg-Trace) mg/dL Urine Glucose (UA) (Negative) mg/dL Urine Ketones (Negative) mg/dL Urine Blood (Negative) Urine Nitrite (Negative) Ur Leukocyte Esterase (Negative) Influenza Type A (PCR) NEGATIVE (Negative) Influenza Type B (PCR) NEGATIVE (Negative) RSV RNA Qual (PCR) NEGATIVE (Negative) SARS-CoV-2 RNA (RT-PCR) NEGATIVE (Negative) 07/28/24 Range/Units 19:55 WBC (4.8-10.8) X10*3/uL RBC (4.60-5.80) X10*6/uL Hgb (14.0-18.0) g/dl Hct (42.0-52.0) % MCV (80.0-98.0) fL MCH (27.0-33.0) pg MCHC (31.0-36.0) g/dl RDW (11.0-16.0) % Plt Count (160-400) X10*3/uL MPV (9.4-12.4) fL Immature Gran % (Auto) (0.0-0.4) % Neut % (Auto) (45-73) % Lymph % (Auto) (20-40) % [place] % (Auto) (2-11) % Eos % (Auto) (0-4) % Baso % (Auto) (0-2) % Lymph # (Auto) (1.2-4.9) X10*3/uL [place] # (Auto) (0.1-1.2) X10*3/uL Eos # (Auto) (0.0-0.4) X10*3/uL Baso # (Auto) (0.0-0.2) X10*3/uL Abs Immat Gran (auto) (0.00-0.03) X10*3/uL Absolute Neuts (auto) (2.0-8.3) x10*3/uL Absolute Nucleated RBC (0.0-0.012) X10*3/uL Nucleated RBC % (auto) (0.0-0.2) /100WBC Smear Tech's Comments Hold Purple Top PT (10.9-12.4) SEC INR (0.9-1.1) Sodium (135-145) mmol/L Potassium (3.3-5.1) mmol/L Chloride (96-108) mmol/L Carbon Dioxide (22-29) mmol/L Anion Gap (12-20) BUN (9-16) mg/dL Creatinine (0.5-1.4) mg/dL Estim Creat Clear Calc Estimated GFR Random Glucose (60-115) mg/dL Lactic Acid (0.5-2.0) mmol/L Calcium (8.4-10.2) mg/dL Magnesium (1.6-2.6) mg/dL Total Bilirubin (0.0-1.0) mg/dL AST (5-37) U/L ALT (0-40) U/L Alkaline Phosphatase (39-117) U/L Troponin I High Sens (<3.5-35.0) ng/L Total Protein (6.5-8.0) g/dL Albumin (3.5-5.0) g/dL Lipase (8-78) U/L Urine Color Yellow Urine Appearance Clear Urine pH 7.0 (5.0-9.0) Ur Specific [place] >= 1.030 H (1.005-1.025) Urine Protein Negative (Neg-Trace) mg/dL Urine Glucose (UA) Negative (Negative) mg/dL Urine Ketones Negative (Negative) mg/dL Urine Blood Negative (Negative) Urine Nitrite Negative (Negative) Ur Leukocyte Esterase Negative (Negative) Influenza Type A (PCR) (Negative) Influenza Type B (PCR) (Negative) RSV RNA Qual (PCR) (Negative) SARS-CoV-2 RNA (RT-PCR) (Negative) Independent Interpretation I performed an independent interpretation of an: CT Scan Radiology Impression Discussion of test interpretation with radiology: I have reviewed the radiologist's reading. Radiologist Impression: [address] [address] Ultrasound Report Signed Patient: Rodger Morejon MR#: [id number] : 1970 Acct:[id number] Age/Sex: 54 / M ADM Date: 07/28/24 Loc: HO.ED Attending Dr: Ordering Physician: Lloyd Enciso MD Date of Service: 07/28/24 Procedure(s): US abdomen limited Accession Number(s): [id number] cc: Mony Bernstein MD; Lloyd Enciso MD~ EXAMINATION: US ABDOMEN LIMITED CLINICAL INFORMATION: A calculus cholecystitis. COMPARISON: CT abdomen pelvis 07/28/2024 TECHNIQUE: Real-time imaging of the right upper quadrant abdominal viscera. FINDINGS: PANCREAS: Pancreas could not be seen now was obscured by bowel gas. LIVER: The liver is not enlarged. The liver contour is normal. Parenchymal echogenicity is normal. No focal hepatic lesion. There is no intrahepatic biliary duct dilatation seen. GALLBLADDER: Gallbladder is grossly abnormal with a thickened wall containing fluid as well as pericholecystic fluid. Gallstones are visualized. Low sign is positive. COMMON BILE DUCT: Normal in caliber measuring 0.7 cm in diameter. RIGHT KIDNEY: No hydronephrosis. No renal calculi or focal parenchymal lesions. The kidney measures 11.3 cm in maximum dimension. FREE FLUID: Small volume ascites is present around the liver. US/US abdomen limited IMPRESSION: 1. Abnormal gallbladder with thickened wall, pericholecystic fluid and positive Low sign. Findings are consistent with acute cholecystitis. 2. Small volume ascites. Electronically signed by: Chandler Irving MD 07/29/2024 12:39 AM [facility] [place] [address] [address] Scan Report Signed Patient: Rodger Morejon MR#: [id number] : 1970 Acct:[id number] Age/Sex: 54 / M ADM Date: 07/28/24 Loc: HO.ED Attending Dr: Ordering Physician: Lloyd Enciso MD Date of Service: 07/28/24 Procedure(s): CT abdomen pelvis w IV con Accession Number(s): [id number] cc: Mony Bernstein MD; Lloyd Enciso MD~ Report Number: [id number]: Total DLP = 317.00 mGy-cm CLINICAL HISTORY: Lower abdominal pain with pancreatic pseudocyst CT abdomen and pelvis with contrast Comparison: CT/REG/SR - CT ABDOMEN PELVIS W IV CON - 09/14/23 13:40 EST Findings: No consolidation or effusion. There are numerous pancreatic calcifications, compatible with chronic pancreatitis. There is mild haziness within the pancreatic mesentery. There is a 4.3 x 1.3 cm walled-off fluid collection adjacent to the pancreatic tail. There is edema of the adjacent proximal duodenum. There is severe thickening of the gallbladder wall and infiltration of the gallbladder mesentery. There is mild dilatation of the common bile duct and the intrahepatic biliary tree. There is a calcified granuloma within the left lobe of the liver. The spleen, adrenal glands and kidneys are unremarkable. No bowel obstruction, pneumoperitoneum, or pneumatosis. There is an inferior vena cava filter. No current evidence of deep venous thrombosis at visualized levels. There is trace pelvic free fluid. Otherwise unremarkable pelvic contents. Appendix not definitively seen. No secondary findings to suggest appendicitis. Surgical hardware and deformity associated with the left bony pelvis without change. No acute fracture. IMPRESSION: 1. There are changes of chronic pancreatitis and superimposed acute pancreatitis associated with a 4.3 cm pseudocyst. 2. There is severe gallbladder edema suggesting acute cholecystitis. There is mild dilatation of the intra and extrahepatic biliary tree. 3. There is secondary edema of the proximal duodenum. This document has been electronically signed by: Deysi Adame MD on 07/28/2024 18:47:49 Medications Administered Discontinued Medications Generic Name Dose Route Start Last Admin Trade Name Freq PRN Reason Stop Dose Admin Acetaminophen 650 mg 07/28/24 22:22 07/28/24 22:32 Acetaminophen 325 Mg Tablet PO 07/28/24 22:23 650 mg ONCE ONE Administration Hydromorphone HCl 2 mg 07/28/24 20:13 07/28/24 20:16 Hydromorphone Hcl 2 Mg/Ml Vial IVPUSH 07/28/24 20:14 2 mg ONCE ONE Administration Protocol Sodium Chloride 1,000 mls @ 999 mls/hr 07/28/24 16:37 07/28/24 19:33 Ns IV 07/28/24 17:37 Infused .Q1H1M ONE Infusion Piperacillin Sod/Tazobactam 100 mls @ 200 mls/hr 07/28/24 16:37 07/28/24 18:14 Sod 4.5 gm/ Sodium Chloride IV 07/28/24 17:06 Infused ONCE ONE Infusion Sodium Chloride 1,000 mls @ 999 mls/hr 07/28/24 16:38 07/28/24 19:33 Ns IV 07/28/24 17:38 Infused .Q1H1M ONE Infusion Iohexol 85 ml 07/28/24 17:34 07/28/24 17:35 Iohexol 350 Mg/Ml 100 Ml Infus..Btl IV 07/28/24 17:35 85 ml ONCE ONE Administration Ketorolac Tromethamine 30 mg 07/28/24 22:22 07/28/24 22:33 Ketorolac Tromethamine 30 Mg/Ml Vial IVPUSH 07/28/24 22:23 30 mg ONCE ONE Administration Morphine Sulfate 4 mg 07/28/24 16:38 07/28/24 16:51 Morphine Sulfate 4 Mg/Ml Cartridge IVPUSH 07/28/24 16:39 4 mg ONCE ONE Administration Protocol Morphine Sulfate 4 mg 07/29/24 01:36 07/29/24 01:50 Morphine Sulfate 4 Mg/Ml Cartridge IVPUSH 07/29/24 01:37 4 mg ONCE ONE Administration Protocol Ondansetron HCl 4 mg 07/28/24 16:38 07/28/24 16:51 Ondansetron Hcl 4 Mg/2 Ml Vial IVPUSH 07/28/24 16:39 4 mg ONCE ONE Administration Discharge Plan Discharge Clinical Impression: Pancreatic pseudocyst, Pancreatitis, Acute cholecystitis Patient Disposition: [facility] Transfer Details: [facility] ED department Dr. Santos Prescriptions: No Action tugermzkvc-acdhnymdrbffj-fcxb 50-325-40 mg tablet 1 tab PO Q12H PRN (Reason: Pain) omeprazole 20 mg capsule,delayed release(DR/EC) 1 cap PO BID cyclobenzaprine 5 mg tablet 1 tab PO Q8H PRN (Reason: muscle spasm) polyethylene glycol 3350 17 gram Powder In Packet 17 g PO DAILY Qty: 30 0RF magnesium hydroxide [Milk of Magnesia] 400 mg/5 mL Suspension 30 ml PO DAILY PRN (Reason: Constipation) Qty: 355 0RF Creon 24,000-76,000 -120,000 unit Capsule,Delayed Release(Dr/Ec) 1 cap PO TIDWM Qty: 60 0RF docusate sodium [Colace] 100 mg capsule 200 mg PO DAILY Qty: 20 0RF atorvastatin 10 mg tablet 10 mg PO BEDTIME calcium carbonate-vitamin D3 [Oyster Shell Calcium-Vit D3] 500 mg-5 mcg (200 unit) tablet 1 tab PO DAILY acetaminophen-codeine 300-30 mg tablet 1 tab PO Q8H PRN (Reason: pain) ibuprofen 400 mg tablet 400 mg PO Q8H PRN gabapentin 600 mg tablet 600 mg PO TID Print Language: Albanian
[2024-07-28 16:40] LABS: Lactic Acid 0.7 mmol/L (0.5-2.0)
[2024-07-28] MEDS: ondansetron HCL 4 MG/2 ML VIAL IVPUSH (16:51)
[2024-07-28] MEDS: Morphine Sulfate 4 MG/ML CARTRIDGE IVPUSH (16:51)
[2024-07-28] MEDS: Piperacillin Sodium/Tazobactam 4.5 GM in 0.9 % Sodium Chloride 100 ML IV (16:51)
[2024-07-28] MEDS: 0.9 % Sodium Chloride 1,000 ML 999 ML IV ×2 (16:51→16:54)
[2024-07-28] MEDS: iohexoL 350 MG/ML 100 ML INFUS..BTL 85 ML IV (17:35)
[2024-07-28 18:12] VITALS: BP 110/70; PULSE 85; RESP 20; TEMP 37.3; O2SAT 94
[2024-07-28 19:46] VITALS: BP 114/69; PULSE 87; RESP 24; TEMP 38.3; O2SAT 96
[2024-07-28 20:06] LABS: Appearance Urine Clear; Color Urine Yellow; Glucose Urine UA Negative (Negative); Leukocyte Esterase Urine Negative (Negative); Nitrite Urine Negative (Negative); Specific Gravity - Urine >= 1.030 (1.005-1.025); Urine Blood Negative (Negative); Urine Ketones Negative (Negative); Urine Protein Negative (Neg-Trace)
[2024-07-28] MEDS: HYDROmorphone HCl 2 MG/ML VIAL IVPUSH (20:16)
--- NOTE | 2024-07-28 20:21 | PC.NURSE ---
pt endorsing 10/10 pain. notified provider. Administered medications as per mar. Provider at bedside plan for admission. Pt agreeable
--- NOTE | 2024-07-28 21:36 | PC.NURSE ---
Late entry Dr. Mccracken made aware of fever, tylenol to be ordered.
[2024-07-28 22:02] VITALS: BP 148/80; PULSE 99; RESP 18; TEMP 36.7; O2SAT 96
[2024-07-28] MEDS: Acetaminophen 325 MG TABLET 650 MG PO (22:32)
[2024-07-28] MEDS: Ketorolac Tromethamine 30 MG/ML VIAL IVPUSH (22:33)
[2024-07-29] MEDS: Morphine Sulfate 4 MG/ML CARTRIDGE IVPUSH (01:50)
--- NOTE | 2024-07-29 02:49 | PC.NURSE ---
Report called to [facility] triage nurse.
== END 2024-07-29 03:17 | disposition short-term general hospital (02) ==
PROVIDERS: Emergency Provider Internal Medicine; PCP Internal Medicine
DX: K86.3 Pseudocyst of pancreas (principal); K85.90 Acute pancreatitis without necrosis or infection, unspecified; K81.9 Cholecystitis, unspecified; R10.31 Right lower quadrant pain; R11.0 Nausea; Z87.891 Personal history of nicotine dependence; Z03.818 Encounter for observation for suspected exposure to other biological agents ruled out; Z79.899 Other long term (current) drug therapy
CPT/HCPCS: 0241U; 36415; 74177; 76705; 80053; 81003; 83605; 83690; 83735; 84484; 85025; 85610; 87040; 93005; 96361; 96365; 96375; 99285; J1171; J1885; J2270; J2405; J2543; Q9967

== ENCOUNTER → 2024-07-28 13:26 | Outpatient (BNV) | payer MEDICAID, SELFPAY | PROVIDERS: Emergency Provider Internal Medicine; PCP Internal Medicine; Visit Provider Internal Medicine Cardiovascular Disease | DX: R10.9 Unspecified abdominal pain (principal) | CPT/HCPCS: 93010 ==

== ENCOUNTER → 2024-07-28 16:38 | Outpatient (BNV) | payer MEDICAID, SELFPAY | PROVIDERS: Emergency Provider Internal Medicine; PCP Internal Medicine; Visit Provider Radiology Diagnostic Radiology | DX: K85.90 Acute pancreatitis without necrosis or infection, unspecified (principal); K86.3 Pseudocyst of pancreas; K82.8 Other specified diseases of gallbladder | CPT/HCPCS: 74177 ==

== ENCOUNTER 2024-08-02 20:27 | Emergency (ER) | payer MEDICAID, SELFPAY ==
[2024-08-02 20:34] VITALS: BP 118/66; PULSE 90; O2SAT 93
[2024-08-02 20:36] VITALS: BP 102/54; PULSE 91; RESP 16; TEMP 36.8; O2SAT 95; BMI 23.8
[2024-08-02 22:00] VITALS: BP 90/52; PULSE 66; RESP 16; TEMP 36.8; O2SAT 94
--- NOTE | 2024-08-02 22:56 | ED_ITS ---
HPI - Extremity Problem General Chief complaint: Extremity Problem Stated complaint: post op drain-leak Time Seen by Provider: 08/02/24 21:54 Source: patient Mode of arrival: ambulatory Limitations: no limitations History of Present Illness ED Provider: Dr. Ilene De La Paz HPI Narrative: Patient comes to the emergency room complaining of a gallbladder drain that is leaking around the skin area. Patient states that on July 29, he was discharged from [facility]. Patient was transferred for pancreatitis secondary to acute cholecystitis with pancreatic pseudocyst. Patient states that when he flushes, fluid drains from around the tube around the skin area. Related Data Home Medications ?Medication ?Instructions ?Recorded ?Confirmed oyldgjiaxt-nqvrrictcutuh-ackvbptd 1 tab PO Q12H PRN Pain 09/30/22 09/30/22 50 mg-325 mg-40 mg tablet cyclobenzaprine 5 mg tablet 1 tab PO Q8H PRN muscle spasm 09/30/22 09/30/22 omeprazole 20 mg capsule,delayed 1 cap PO BID 09/30/22 09/30/22 release acetaminophen 300 mg-codeine 30 mg 1 tab PO Q8H PRN pain 03/27/23 tablet atorvastatin 10 mg tablet 10 mg PO BEDTIME 03/27/23 calcium 500 mg (as 1 tab PO DAILY 03/27/23 carbonate)-vitamin D3 5 mcg (200 unit) tablet (Oyster Shell Calcium-Vitamin D3) gabapentin 600 mg tablet 600 mg PO TID 03/27/23 ibuprofen 400 mg tablet 400 mg PO Q8H PRN 03/27/23 Previous Rx's ?Medication ?Instructions ?Recorded docusate sodium 100 mg capsule 200 mg (2 x 100 mg) PO DAILY #20 10/03/22 (Colace) caps yhmpdr-bvdnwsfj-pwbljao 1 cap PO TIDWM #60 caps 10/03/22 24,000-76,000-120,000 unit capsule,delayed rel (Creon) magnesium hydroxide 400 mg/5 mL 30 ml PO DAILY PRN Constipation 10/03/22 oral suspension (Milk of Magnesia) #355 mL polyethylene glycol 3350 17 gram 17 g PO DAILY #30 ea 10/03/22 oral powder packet doxycycline hyclate 100 mg tablet 100 mg PO BID #20 tabs 08/02/24 Allergies Allergy/AdvReac Type Severity Reaction Status Date / Time No Known Allergies Allergy Verified 08/02/24 20:38 Review of Systems Review of Systems: Constitutional : No Weight loss, No Fever, No Chills, No Night Sweats, No Fatigue, No Malaise ENT/Mouth : No Hearing loss, No Ear Pain, No Nasal Congestion, No Sinus Pain, No Hoarseness, No sore throat, No Rhinorrhea, No Swallowing Difficulty Eyes: No Eye Pain, No Swelling, No Redness, No Foreign Body, No Discharge, No Vision Changes Cardiovascular : No Chest Pain, No SOB, No Dyspnea on Exertion, No Orthopnea, No Edema, No Palpitations Respiratory : No Cough, No Sputum, No Wheezing, No Smoke Exposure, No Dyspnea Gastrointestinal : No Nausea, No Vomiting, No Diarrhea, No Constipation, No abdominal Pain, No Hematochezia, No Melena Genitourinary : no irregular bleeding, No Dysuria, No Urinary Frequency, No Hematuria, No Urinary Incontinence, No Urgency, No Flank Pain, No Urinary Flow Changes, No Hesitancy Musculoskeletal : No joint pain, No Myalgias, No Joint Swelling Skin : Complaining of if draining from the gallbladder drain Neuro : No Weakness, No Numbness, No Paresthesias, No Loss of Consciousness, No Dizziness, No Headache Psych : No Anxiety/Panic, No Depression, No SI/HI/AH/VH, No Social Issues, Heme/Lymph: No Bruising, No Bleeding,No Lymphadenopathy Endocrine : No Polyuria, No Polydipsia, No Temperature Intolerance [facility] Past Medical History Medical History Pancreatitis GERD (gastroesophageal reflux disease) Pancreatitis Surgical History History of mandibular surgery H/O left wrist surgery History of hip surgery Social History Social History Household Members: Significant Other Housing: Apartment Do you presently have visiting nurse or other home services: No Alcohol intake: former Patient Tobacco Use Status: Former Tobacco user Tobacco use type: Cigarette e-Cigarette/Vaping Use: Never Used Second Hand Smoke Exposure: No Substance Use Type: Marijuana Advance Directives: No Advance Directives Information Provided: No service: No Current occupational status: disabled Physical Exam Vital Signs: Vital Signs: Last Vital Signs Temp 98.2 F 08/02/24 22:00 Pulse 66 08/02/24 22:00 Resp 16 08/02/24 22:00 BP 90/52 L 08/02/24 22:00 Pulse Ox 94 08/02/24 22:00 O2 Del Method Room Air 08/02/24 22:00 BMI result Body Mass Index 23.8 Const: Other: Appearance: Alert. Oriented X3. No acute distress. Eyes: Pupils equal, round and reactive to light. ENT: Pharynx normal. Neck: Normal inspection. Neck supple. No lymph nodes noted. No crepitus CVS: Normal heart rate and rhythm. Pulses normal. Normal S1 and S2 Respiratory: No respiratory distress. Breath sounds normal. No Wheezing. No rales Abdomen: Soft and nontender. No rigidity. No distention. Patient has 2 drains in the abdomen. Both are flushing well. One of them leaks fluid around the d rain close to the skin. The skin is irritated, tender to palpation. Skin: Skin warm and dry. Normal skin color. Normal skin turgor. Extremities: No lower extremity edema. No Lacerations. No Rash Neuro: Oriented X 3. No motor deficit. No sensory deficit. Moving all extremities. No slurred speech. CN 2 through 12 grossly intact Psych: calm, cooperative, normal affect Medical Decision Making Medical Decision Making MDM Narrative: I discussed with the patient that he has mild erythema around the surgical site. Patient is already taking cefuroxime and metronidazole. Doxycycline was added. Cultures were taken from the wound site. I discussed with the patient that they drain itself has a hole, likely was poked when the sutures were applied. Patient instructed to follow-up in [facility] with his surgeon. Discharge Plan Discharge Clinical Impression: Cholecystostomy drain infection Patient Disposition: Home, Self-Care Instructions: Cellulitis (ED) Additional Instructions: Please follow-up with your primary care physician tomorrow. If you have any worsening or new symptoms, please return to the emergency room or call 911 Prescriptions: New doxycycline hyclate 100 mg tablet 100 mg PO BID Qty: 20 0RF No Action lxgxrftqem-jdxvkfznhusum-iftf 50-325-40 mg tablet 1 tab PO Q12H PRN (Reason: Pain) omeprazole 20 mg capsule,delayed release(DR/EC) 1 cap PO BID cyclobenzaprine 5 mg tablet 1 tab PO Q8H PRN (Reason: muscle spasm) polyethylene glycol 3350 17 gram Powder In Packet 17 g PO DAILY Qty: 30 0RF magnesium hydroxide [Milk of Magnesia] 400 mg/5 mL Suspension 30 ml PO DAILY PRN (Reason: Constipation) Qty: 355 0RF Creon 24,000-76,000 -120,000 unit Capsule,Delayed Release(Dr/Ec) 1 cap PO TIDWM Qty: 60 0RF docusate sodium [Colace] 100 mg capsule 200 mg PO DAILY Qty: 20 0RF atorvastatin 10 mg tablet 10 mg PO BEDTIME calcium carbonate-vitamin D3 [Oyster Shell Calcium-Vit D3] 500 mg-5 mcg (200 unit) tablet 1 tab PO DAILY acetaminophen-codeine 300-30 mg tablet 1 tab PO Q8H PRN (Reason: pain) ibuprofen 400 mg tablet 400 mg PO Q8H PRN gabapentin 600 mg tablet 600 mg PO TID Print Language: Tamazight
[2024-08-02] MEDS: Doxycycline Monohydrate 100 MG CAPSULE PO (23:10)
[2024-08-02 23:18] VITALS: BP 90/52; PULSE 66; RESP 16; TEMP 36.8; O2SAT 94
== END 2024-08-02 23:19 | disposition home or self-care (01) ==
PROVIDERS: Emergency Provider Emergency Medicine; PCP Internal Medicine
DX: T83.510A Infection and inflammatory reaction due to cystostomy catheter, initial encounter (principal); Y82.8 Other medical devices associated with adverse incidents; Y92.9 Unspecified place or not applicable
CPT/HCPCS: 87070; 87205; 99283; 99284

== ENCOUNTER 2024-11-06 14:48 | Outpatient (AMB) | payer MEDICAID, SELFPAY ==
--- NOTE | 2024-11-06 15:13 | MHC.OFFVIS ---
Vital Signs 11/06/24 15:17 Height 5 ft 6 in Weight 132 lb 4.438 oz BMI 21.3 BP 100/60 Blood Pressure Location Lt brachial Position Sitting Pulse 70 Intake Visit Reasons: Discuss Colonoscopy Intake Note: Rodger presents in the office as a screening for a colonosopy. CC: States he has never had one and it is time - no other concerns at this time. Proof Sorter Required: No Allergies No Known Allergies Allergy (Verified 08/02/24 20:38) HPI Comments Details: This is a 53-year-old gentleman who was seen in the hospital last year for pancreatitis with peripancreatic fluid collection measuring up to 6 cm. He required transfer to [facility] for endoscopic guided cyst gastrostomy. He presents today to establish care with Gastroenterology. Patient does not report any recurrent episodes of pancreatitis since then. However, he does report flare up of similar pain that he experienced last year, over the past 4-6 weeks. With this, he has also had decreased appetite and feeling of early satiety. Reports losing 10 lb in the last 2 months. He did not have a follow-up with [facility] Gastroenterology, and per most recent CT scan February 2023, pigtail stent is still in place, which should have been removed within 4-6 weeks of the procedure. 11/06/24: Here for follow up. Reports PD stents removed Feb 2024. Was then seen in [facility] ER 06/2024 for acute cholecystitis and acute pancreatitis and transferred to [facility] for further management. s/p Cholecystostomy tube placement. This inadvertently fell out with formation of intra abdominal abscess along the C tube tract in Aug 2024. This was subsequently managed at [facility] under Dr Andres. Currently has C tube placed and reports 200cc of bile drainage roughly through the day. Has appt next week for ? removal of the c tube. Imaging from [facility] reviewed with 1 cm head of pancreas cyst noted. Follow up MRI recommened. [facility] Medical History Pancreatitis GERD (gastroesophageal reflux disease) Pancreatitis Surgical History History of mandibular surgery H/O left wrist surgery History of hip surgery Social History Household Members: Significant Other Housing: Apartment Do you presently have visiting nurse or other home services: No Alcohol intake: never Patient Tobacco Use Status: Former Tobacco user Tobacco use type: Cigarette e-Cigarette/Vaping Use: Never Used Second Hand Smoke Exposure: No Substance Use Type: Marijuana service: No Current occupational status: disabled Review of Systems Const All systems reviewed & are unremarkable except as noted in HPI and below Physical Exam Vital Signs: Last Vital Signs Pulse 70 11/06/24 15:17 BP 100/60 11/06/24 15:17 BMI result Body Mass Index 21.3 No apparent distress Nonicteric Abdomen soft, nondistended, RUQ C tube in place with 100 cc bilious drainage Alert and oriented x3, normal gait Assessment & Plan Assessment & Plan (1) Intra-abdominal abscess post-procedure: Code(s): T81.43XA - Infection following a procedure, organ and space surgical site, initial encounter; K65.1 - Peritoneal abscess Category: Medical (2) History of insertion of cholecystostomy tube: Code(s): Z98.890 - Other specified postprocedural states Category: Surgical (3) Pancreatic pseudocyst: Code(s): K86.3 - Pseudocyst of pancreas Category: Medical (4) Chronic alcoholic pancreatitis: Code(s): K86.0 - Alcohol-induced chronic pancreatitis Category: Medical (5) Colon cancer screening: Code(s): Z12.11 - Encounter for screening for malignant neoplasm of colon Category: Medical Plan Pt is primarily following up today to discuss booking a screening colonoscopy. However, as outlined above, recently had cholecystitis with cholecystostomy tube complications including intra-abdominal abscess. This drainage will be removed next week as per his report. Given finding of new pancreatic head cyst in the context of chronic panc, he will also need an MRI with pancreas protocol ordered to r/o high risk features. This has been ordered today. Close follow-up in 6 weeks to review results as well as to discuss timing of screening colonoscopy. Orders: Orders MR abdomen wo/w con 4 Weeks K65.1 - Peritoneal abscess, K86.3 - Pseudocyst of pancreas, T81.43XA - Infection following a procedure, organ and space surgical site, initial encounter, Z98.890 - Other specified postprocedural states Coding Level of Care Code Est Pt Level 4 (13542) Complex EM visit Add On G2211 Diagnoses Intra-abdominal abscess post-procedure T81.43XA; K65.1 History of insertion of cholecystostomy tube Z98.890 Pancreatic pseudocyst K86.3 Chronic alcoholic pancreatitis K86.0 Colon cancer screening Z12.11
[2024-11-06 15:17] VITALS: BP 100/60; PULSE 70; BMI 21.3
--- OUTSIDE RECORDS SUMMARY | 2024-11-06 16:59 | XMS_ITS | Encounter Summary ---
Author Organization [email or web address] Address [address] [place] [address] Care Team Providers Care Rubber Grinder Name Role Phone Mony Bernstein MD Primary Care Provide r Reason for Visit * Reason Onset Date Comments Medical necessity 10/15/2024 Durable Medical Equipment 10/15/2024 [employer] Form: Wound Care Supplies Encounter Details Date Type Department Care Team (Late st Contact Info) Description 10/15/2024 Telephone [facility] MED[facility]INE [address] [place] [address] Mony Bernstein MD [address] [place] [address] Medical necessity; Durable Medical Equipment ([employer] Form: Wound Care Supplies) Social History Tobacco Use Types Packs/Day Years Used Date Smoking Tobacco: Former Cigarettes 2 0.5 0 01/2022 - 07/2022 Passive Smoke Exposure: Past Smokeless Tobacco: Never Alcohol Use Standard Drinks/Week Comments Not Currently 0 (1 standard drink = 0.6 oz pur e alcohol) Quit 2.5 years ago Depression Answer Date Recorded Patient Health Questionnaire-9 Score 0 07/11/2024 Patient Health Questionnaire-9 Score 0 07/11/2024 Last PHQ-9: Questionnaire Data Not on file 1 09/11/2023 Housing Stability Answer Date Recorded What is your housing situation today? I have janice camargo 05/15/[address] you li ve. Do you have problems with any of the following? None of the above 05/15/2023 Food Insecurity Answer Date Recorded Within the past 12 months, y ou worried that your food would run out before you got money to buy more: Often true 01/25/2024 Within the past 12 months,th e food you bought just didn't last and you didn't have enough money to get more: Often true Transportation Answer Date Recorded In the past 12 months, has l ack of transportation kept you from medical appts, meetings, work or from getting things needed for daily living? No 01/25/2024 Utilities Answer Date Recorded In the past 12 months, has t he electric, gas, oil or water company threatened to shut off services in your home? Yes 05/08/2023 Depression Answer Date Recorded Patient Health Questionnaire-2 Score 0 07/11/2024 Internet Access Answer Date Recorded Internet Access Q1 Yes 04/01/2024 Internet Access Q2 Not on file 04/01/2024 Sex and Gender Information Value Date Recorded Sex Assigned at Male 05/30/2022 10:16 AM EDT Legal Sex Male 10:16 AM EDT Gender Identity Male 05/30/2022 10:16 AM EDT Sexual Orientation Straight 05/30/2022 10 :16 AM EDT documented as of this encounter Miscellaneous Notes * Telephone Encounter - Meera Perez - 11/06/2024 3:52 PM EDT Certificate or medical necessity for wound care supplies from [employer] received and is being processed. * Telephone Encounter - Linda Dash - 10/15/2024 1:59 PM EDT Tc from [facility] with [employer] requesting medical necessity for wound care supplies to be sent to documented in this encounter Plan of Treatment Upcoming Encounters Date Type Department Care Team ([facility] st Contact Info) Description 11/12/2024 9:00 AM EDT Office Visit [facility] [address] [place] [address] Mony Bernstein MD [address] [place] [address] documented as of this encounter Visit Diagnoses Not on filedocumented in this encounter Additional Health Concerns Assessment Noted Time PHQ-9 Depression Total Score: 0 07/11/20 24 2:57 PM EST documented as of this encounter Care Teams Rubber Grinder Relationship Specialty Start Date End Date Mony Bernstein MD [address] [place] [address] PCP - General Internal Medicine 05/10/23 [facility] 09/29/24 documented as of this encounter
--- OUTSIDE RECORDS SUMMARY | 2024-11-06 16:59 | XMS_ITS | Encounter Summary ---
Author Organization [employer] Address [address] [place] [address] Care Team Providers Care Plumbing Contractor Name Role Phone Mony Bernstein MD Primary Care Provide r Reason for Visit * Reason Comments Med Refill Encounter Details Date Type Department Care Team ([facility] st Contact Info) Description 11/01/2024 Refill [facility] MED[facility]INE [address] [place] [address] Mony Bernstein MD [address] [place] [address] Chronic shoulder pain, unspecified laterality Social History Tobacco Use Types Packs/Day Years [...] encounter Miscellaneous Notes * Telephone Encounter - Vane Bonilla RN - 11/01/2024 11:14 AM EDT [facility] reviewed, pt. Last picked up 28 day supply 10/03/24, rx due and pended documented in this encounter Plan of Treatment Upcoming Encounters Date Type Department Care Team (Late st Contact Info) Description 11/12/2024 9:00 AM EDT Office Visit [facility] MED[facility] [address] [place] [address] Mony Bernstein MD [address] [place] [address] documented as of this encounter Visit Diagnoses Diagnosis Chronic shoulder pain, unspecified laterality documented in this encounter Additional Health Concerns Assessment Noted Time PHQ-9 Depression Total Score: 0 07/11/20 24 2:57 PM EST documented as of this encounter Care Teams Plumbing Contractor Relationship Specialty Start Date End Date Mony Bernstein MD [address] [place] [address] PCP - General Internal Medicine 05/10/23 [facility] 09/29/24 documented as of this encounter
--- OUTSIDE RECORDS SUMMARY | 2024-11-06 16:59 | XMS_ITS | Encounter Summary ---
Author Organization [facility] Address [address] [place] [address] Care Team Providers Care Powder Mixer Name Role Phone Mony Bernstein MD Primary Care Provide r Reason for Visit * Reason Comments Est patient needs scheduling Encounter Details Date Type Department Care Team (Late st Contact Info) Description 08/02/2024 Telephone [facility] [address] [place] [address] Anneliese Espinoza MD [address] [facility] [address] [place], [place] [id number] Est patient needs scheduling Social History Tobacco Use Types Packs/Day Years Used Date Smoking Tobacco: Former Cigarettes 3 35 0 09/14/1987 - 09/14/2022 Alcohol Use Standard Drinks/Week Comments Not Currently 0 (1 standard drink = 0.6 oz pur e alcohol) [facility] Utilities Answer Date Recorded In the past 12 months has [employer], gas, oil, or water [employer] threatened to shut off services in your home? No 07/30/2024 AUDIT-C Answer Date Recorded Q1: How often do you have a drink containing alcohol? Never 07/29/2024 Q2: How many drinks containi ng alcohol do you have on a typical day when you are drinking? Patient does not drink Q3: How often do you have si x or more drinks on one occasion? Never 07/29/2024 Overall Financial Resource Strain (CARDIA) Answe r Date Recorded How hard is it for you to pa y for the very basics like food, housing, medical care, and heating? Not very hard 07/30/2024 Hunger Vital Sign Answer Date Recorded Within the past 12 months, y ou worried that your food would run out before you got the money to buy more. Never true 07/30/20 24 Within the past 12 months, t he food you bought just didn't last and you didn't have money to get more. Never true 07/30/2024 PRAPARE - Transportation Answer Date Re corded In the past 12 months, has l ack of transportation kept you from medical appointments or from getting medications? No 07/02 In the past 12 months, has l ack of transportation kept you from meetings, work, or from getting things needed for daily living? No 07/30/2024 Housing Stability Vital Sign Answer Rajinder e Recorded In the last 12 months, was t here a time when you were not able to pay the mortgage or rent on time? No 07/30/2024 In the past 12 months, how m any times have you moved where you were living? 1 07/30/2024 At any time in the past 12 m [facility], were you homeless or living in a fpc (including now)? No 07/30/2024 Sex and Gender Information Value Date Recorded Sex Assigned at Male 10/03/2022 9:25 PM EST Gender Identity Male 10/03/2022 9:25 PM EST Sexual Orientation Choose not to disclose 2022 9:02 PM EST documented as of this encounter Plan of Treatment Not on file documented as of this encounter Visit Diagnoses Not on filedocumented in this encounter Care Teams Powder Mixer Relationship Specialty Start Date End Date Mony Bernstein MD [address] [place] [id number] PCP - General Internal Medicine 07/29/24 documented as of this encounter
--- OUTSIDE RECORDS SUMMARY | 2024-11-06 16:59 | XMS_ITS | Encounter Summary ---
Author Organization [employer] Address [address] [place] [address] Care Team Providers Care Shear Scrapman Name Role Phone Mony Bernstein MD Primary Care Provide r Reason for Visit * Reason Onset Date Comments Chart Prep 11/05/2024 Encounter Details Date Type Department Care Team ([facility] st Contact Info) Description 11/05/[address] [facility] MEDICINE [address] [place] [address] Mony Bernstein MD [address] [place] [address] Chart Prep Social History Tobacco Use Types Packs/Day Years [...] encounter Miscellaneous Notes * Telephone Encounter - Nikkie Smallwood [place] - 11/05/2024 1:19 PM EDT Chart Prep Labs: done Images: done Vaccines due: yes Referrals: appointment pending Screenings: colonoscopy and pap smear Overdue care gaps: SBIRT and YAJAIRA-7 documented in this encounter Plan of Treatment Upcoming Encounters Date Type Department Care Team (Late st Contact Info) Description 11/12/2024 9:00 AM EDT Office Visit [facility] MEDICINE [address] [place] [address] Mony Bernstein MD [address] [place] [address] documented as of this encounter Visit Diagnoses Not on filedocumented in this encounter Additional Health Concerns Assessment Noted Time PHQ-9 Depression Total Score: 0 07/11/20 24 2:57 PM EST documented as of this encounter Care Teams Shear Scrapman Relationship Specialty Start Date End Date Mony Bernstein MD [address] [place] [address] PCP - General Internal Medicine 05/10/23 [facility] 09/29/24 documented as of this encounter
--- OUTSIDE RECORDS SUMMARY | 2024-11-06 16:59 | XMS_ITS | Encounter Summary ---
Author Organization [employer] Address [address] [place] [address] Care Team Providers Care Author Agent Name Role Phone Mony Bernstein MD Primary Care Provide r Reason for Visit * Reason Comments Med Refill Encounter Details Date Type Department Care Team ([facility] st Contact Info) Description 04/16/2024 Refill [facility] [address] [place] [address] Jose Tamayo DDS [address] [place] [address] Social History Tobacco Use Types Packs/Day Years Used Date Smoking Tobacco: Former Cigarettes 2 0.5 0 01/2022 - 07/2022 Smokeless Tobacco: Never Alcohol Use Standard Drinks/Week Comments Not Currently 0 (1 standard drink = 0.6 oz pur e alcohol) Quit 2.5 years ago Depression Answer Date Recorded Patient Health Questionnaire-9 Score 0 10/20/2022 Housing Stability Answer Date Recorded What is [...] Date Recorded Patient Health Questionnaire-2 Score 0 10/20/2022 Internet Access Answer Date Recorded Internet Access [...] encounter Miscellaneous Notes * Telephone Encounter - Jose Tamayo DDS - 04/17/2024 7:30 AM EDT Approving, but needs appt for additional refills. documented in this encounter Plan of Treatment Upcoming Encounters Date Type Department Care Team (Late st Contact Info) Description 11/12/2024 9:00 AM EDT Office Visit [facility] MED[facility]INE [address] [place] [address] Mony Bernstein MD [address] [place] [address] documented as of this encounter Visit Diagnoses Not on filedocumented in this encounter Additional Health Concerns Assessment Noted Time PHQ-9 Depression Total Score: 0 10/21/19 9:08 AM EDT documented as of this encounter Care Teams Author Agent Relationship Specialty Start Date End Date Mony Bernstein MD [address] [place] [phone] PCP - General Internal Medicine 05/10/23 [facility] 09/29/24 documented as of this encounter
--- OUTSIDE RECORDS SUMMARY | 2024-11-06 16:59 | XMS_ITS | Encounter Summary ---
Author Organization [employer] Address [address] [place] [address] Care Team Providers Care Wool Tamper Name Role Phone Mony Bernstein MD Primary Care Provide r Reason for Visit * Reason Comments Med Refill Encounter Details Date Type Department Care Team ([facility] st Contact Info) Description 02/09/2024 Refill [facility] ADULT DENTAL [address] [place] [address] Jose Tamayo DDS [address] [place] [address] Social History Tobacco Use Types Packs/Day Years [...] Recorded Patient Health Questionnaire-2 Score 0 10/20/2022 Sex and Gender Information Value Date Recorded Sex Assigned at Male 05/30/2022 10:16 AM EDT Legal Sex Male 10:16 AM EDT Gender Identity Male 05/30/2022 10:16 AM EDT Sexual Orientation Straight 05/30/2022 10 :16 AM EDT documented as of this encounter Miscellaneous Notes * Telephone Encounter - Jose Tamayo DDS - 02/09/2024 9:42 AM EDT Approving, but needs appt for additional refills. documented in this encounter Plan of Treatment Upcoming Encounters Date Type Department Care Team (Late st Contact Info) Description 11/12/2024 9:00 AM EDT Office Visit [facility] MEDICINE [address], [place] [phone] Mony Bernstein MD [address] [place] [address] documented as of this encounter Visit Diagnoses Not on filedocumented in this encounter Additional Health Concerns Assessment Noted Time PHQ-9 Depression Total Score: 0 10/21/19 9:08 AM EDT documented as of this encounter Care Teams Wool Tamper Relationship Specialty Start Date End Date Mony Bernstein MD [address] [place] [phone] PCP - General Internal Medicine 05/10/23 [facility] 09/29/24 documented as of this encounter
--- OUTSIDE RECORDS SUMMARY | 2024-11-06 16:59 | XMS_ITS | Encounter Summary ---
Demographics Address [address] [place] [address] Home Phone Mobile Phone Preferred Language Kosovan Marital Status Single Congregational Affiliation Unknown Race Other Race Ethnic Group or Author Organization [facility] Address [address] [place] [address] Care Team Providers Care Casino Floor Supervisor Name Role Phone Unknown Primary Care Provider [phone] Mony Bernstein MD Primary Care Provide r Encounter Details Date Type Department Care Team ([facility] st Contact Info) Description 09/06/2023 Telephone [facility] [address] [phone] Gardenia Martin MD [address] [facility] [address] [place] [address] Social History Tobacco Use Types Packs/Day Years Used Date Smoking Tobacco: Former Cigarettes 3 35 0 09/14/1987 - 09/14/2022 Alcohol Use Standard Drinks/Week Comments Not Currently 0 (1 standard drink = 0.6 oz pur e alcohol) AUDIT-C Answer Date Recorded Q1: How often do you have a drink containing alcohol? Never 10/03/2022 Q2: How many drinks containi ng alcohol do you have on a typical day when you are drinking? Patient does not drink Q3: How often do you have si x or more drinks on one occasion? Never 10/03/2022 Overall Financial Resource Strain (CARDIA) Answe r Date Recorded How hard is it for you to pa y for the very basics like food, housing, medical care, and heating? Not very hard 10/04/2022 Hunger Vital Sign Answer Date Recorded Within the past 12 months, y ou worried that your food would run out before you got the money to buy more. Never true 10/05/19 23 Within the past 12 months, t he food you bought just didn't last and you didn't have money to get more. Never true 10/04/2022 PRAPARE - Transportation Answer Date Re corded In the past 12 months, has l ack of transportation kept you from medical appointments or from getting medications? No 10/04/2022 Lack of Transportation (Non-Medical) Not on file 10/04/2022 Housing Stability Vital Sign Answer Rajinder e Recorded In the last 12 months, was t here a time when you were not able to pay the mortgage or rent on time? No 10/04/2022 In the last 12 months, how many places have you lived? 1 10/04/2022 In the last 12 months, was t here a time when you did not have a steady place to sleep or slept in a senior care (including now)? No 10/04/2022 Sex and Gender Information Value Date Recorded Sex Assigned at Male 10/03/2022 9:25 PM EST Gender Identity Male 10/03/2022 9:25 PM EST Sexual Orientation Choose not to disclose 2022 9:02 PM EST documented as of this encounter Miscellaneous Notes * Telephone Encounter - Arabella Quarles MA - 09/06/2023 1:31 PM EST Returned duglas call. She needs to contact [facility]. Provided her with the phone number * Telephone Encounter - Gardenia Martin MA - 09/06/2023 10:43 AM EST Marlene from [facility] left message wants to schedule an appointment for patient documented in this encounter Plan of Treatment Not on file documented as of this encounter Visit Diagnoses Not on filedocumented in this encounter Care Teams Casino Floor Supervisor Relationship Specialty Start Date End Date Unknown Unknow Provider Address PCP - General 10/03/22 07/28/24 Mony Bernstein MD [address] [place] [id number] PCP - General Internal Medicine 07/29/24 documented as of this encounter
--- OUTSIDE RECORDS SUMMARY | 2024-11-06 16:59 | XMS_ITS | Encounter Summary ---
Author Organization [facility] Address [address] [place] [address] Care Team Providers Care Graduate Internship Name Role Phone Unknown Primary Care Provider [phone] Mony Bernstein MD Primary Care Provide r Encounter Details Date Type Department Care Team ([facility] st Contact Info) Description 09/15/2023 Telephone [facility] [address] [place] [address] Brent Schumacher MD [address] [facility] [address] [place] [address] Social History Tobacco Use Types Packs/Day Years Used Date Smoking Tobacco: Former Cigarettes 3 35 0 09/14/1987 - 09/14/2022 Alcohol Use Standard Drinks/Week Comments Not Currently 0 (1 standard drink = 0.6 oz pur e alcohol) AUDIT-C Answer Date Recorded Q1: How often do you have a drink containing alcohol? Never 09/18/2023 Q2: How many drinks containi ng alcohol do you have on a typical day when you are drinking? Patient does not drink Q3: How often do you have si x or more drinks on one occasion? Never 09/18/2023 Overall Financial Resource Strain (CARDIA) Answe r [...] place to sleep or slept in a [place] (including now)? No 10/04/2022 Sex and Gender Information Value Date Recorded Sex Assigned at Male 10/03/2022 9:25 PM EST Gender Identity Male 10/03/2022 9:25 PM EST Sexual Orientation Choose not to disclose 2022 9:02 PM EST documented as of this encounter Miscellaneous Notes * Telephone Encounter - Ngozi Pandey - 09/15/2023 1:38 PM EST Good Afternoon, Patient has Medicaid of [facility] for insurance. I am not sure if he needs to sign a waiver. Thank you, Ngozi documented in this encounter Plan of Treatment Not on file documented as of this encounter Visit Diagnoses Not on filedocumented in this encounter Care Teams Graduate Internship Relationship Specialty Start Date End Date Unknown Unknow Provider Address PCP - General 10/03/22 07/28/24 Mony Bernstein MD [address] [place] [id number] PCP - General Internal Medicine 07/29/24 documented as of this encounter
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
--- OUTSIDE RECORDS SUMMARY | 2024-11-06 16:59 | XMS_ITS | Clinical Summary ---
Author Organization Formerly [facility] Address [address] [place] [address] Care Team Providers Care Lineman Service Or Work Dispatcher Name Role Phone Mony Bernstein MD Primary Care Provide r Allergies No known active allergies Medications Medication Sig Dispensed Refills Start Date End Date Status acetaminophen-codei ne (TYLENOL #3) 300-30 MG per tablet Take 1 tablet by mouth 3 times daily (every 8 hours) as needed. for pain 08/22/2022 Active OMEprazole (PriLOSEC) 20 MG capsule Take 1 capsule (20 mg total) by mouth 2 (two) times a day. 09/16/2022 Active gabapentin (NEURONTIN) 600 MG tablet TAKE 1 TO 2 TABLETS BY MOUTH THREE TIMES DAILY IN THE MORNING, AT NOON, AND AT BEDTIME NEEDED FOR SEVERE PAIN 07/27/2023 Active buPROPion (WELLBUTRIN SR) 150 MG 12 hr tablet Take 1 tablet (150 mg total) by mouth every morning. 03/04/2022 Active butalbital-acetamin ophen-caffeine (FioriCET, ESGIC) 50-325-40 mg tablet as needed. 08/04/2023 Activ e ibuprofen (MOTRIN) 600 MG tablet TAKE 1 TABLET BY MOUTH EVERY 8 HOURS NEEDED FOR MILD PAIN FOR UP TO 10 DAYS 09/04/2023 Active folic acid (FOLVITE) 1 MG tablet Take 1 tablet (1,000 mcg total) by mouth every morning. 08/04/2023 Active naloxone (NARCAN) 4 mg/0.1 mL Liquid nasal spray device FOR SUSPECTED OPIOID OVERDOSE. SPRAY 0.1mL IN ONE NOSTRIL. REPEAT IN ALTERNATE NOSTRIL 2-3 MINUTES IF NEEDED. SEEK MEDICAL ATTENTION IMMEDIATELY EVEN IF PATIENT RESPONDS. 08/04/2023 Active GaviLAX 17 GM/SCOOP powder every morning. 08/04/2023 Active cyclobenzaprine (FLEXERIL) 5 MG tablet Take 1 tablet (5 mg total) by mouth 3 times daily (every 8 hours) as needed for muscle spasms. Active sodium chloride (NS FLUSH) 0.9 % SolutionIndications :Cholecystostomy care (HCC) 10 mL by Intracatheter route 2 (two) times a day. 60 each 11 08/01/2024 Active sodium chloride (NS FLUSH) 0.9 % SolutionIndications :Cholecystostomy care (HCC) 10 mL by Intracatheter route 2 (two) times a day. 60 each 11 08/20/2024 Active Active Problems Problem Noted Date Diagnosed Date Acute cholecystitis 07/29/2024 Gallbladder perforation 07/29/2024 Pancreatic pseudocyst 10/03/2022 Intractable abdominal pain 10/03/2022 Encounters Date Type Department Care Team Description 08/20/2024 1:30 PM EST Office Visit [facility] [address] [place] [address] Shelley Gallegos APRN Cholecystostomy care (HCC) (Primary Dx) 08/20/2024 Orders Only [facility] [address] [place] [phone] Shelley Gallegos APRN Cholecystostomy care ([facility]) (Primary Dx); Pancreatic pseudocyst; Gallbladder perforation 08/20/2024 Orders Only [facility] [address] [address] Shelley Gallegos APRN Cholecystostomy care (HCC) (Primary Dx) 08/20/2024 Travel 08/12/2024 Telephone [facility] [address] [place] [address] Anneliese Espinoza MD Appointment from Last 3 Months Family History Medical History Relation Name Comments Asthma Mother Heart disease Mother Hypertension Mother Heart disease Sister Relation Name Status Comments Mother Sister Social History Tobacco Use Types Packs/Day Years Used Date Smoking Tobacco: Former Cigarettes 3 35 0 09/14/1987 - 09/14/2022 Tobacco Cessation:Counseling Given: Not Answered Alcohol Use Standard Drinks/Week Comments Not Currently 0 (1 standard drink = 0.6 oz pur e alcohol) [facility] Utilities Answer Date Recorded In the past 12 months has th e electric, gas, oil, or water company threatened to shut off [...] any time in the past 12 m [facility], were you homeless or living in a jail (including now)? No 07/30/2024 Sex and Gender Information Value Date Recorded Sex Assigned at Male 10/03/2022 9:25 PM EST Gender Identity Male 10/03/2022 9:25 PM EST Sexual Orientation Choose not to disclose 2022 9:02 PM EST Last Filed Vital Signs Vital Sign Reading Time Taken Comments Blood Pressure 93/62 08/20/2024 1:31 PM EST Pulse 80 08/20/2024 1:31 PM EST Temperature 36.1 ??C (97 ??F) 08/01/2024 3:58 PM EST Respiratory Rate 16 08/01/2024 3:58 PM EST Oxygen Saturation 95% 08/20/2024 1:31 PM EST Inhaled Oxygen Concentration - - Weight 60.1 kg (132 lb 6.4 oz) 08/20/2024 1:31 P M EST Height 167.6 cm (5' 6 ) 08/20/2024 1:31 PM EST Body Mass Index 21.37 08/20/2024 1:31 PM EST Plan of Treatment Health Maintenance Due Date Last Done Comments Hepatitis C Virus Screening 1970 DTaP/Tdap/Td Vaccines (1 - Tdap) 02/12/1991 Hepatitis B Vaccines (1 of 3 - 19+ 3-dose series) 02/12/1991 Colonoscopy 02/12/2017 Lung Cancer Screening (LDCT) 02/12/2022 Pneumococcal Vaccines 50+ (1 of 1 - PCV) 02/12/2022 Zoster (Shingles) Vaccine (1 of 2) 02/12/2022 COVID-19 Vaccine Completed 07/11/2024, , 08/17/2021, Additional history exists HIV Screening Completed 07/11/2024 Influenza Vaccine Completed 07/11/2024, , 05/24/2021, Additional history exists Medical Devices Implanted Type Area Agricultural Consultant Device Identifier Shelf Expiration Date Model / Serial / Lot Nail/Norm Nail/Norm Femur Description:4 rods and 11 pi ns left Explanted Type Area Agricultural Consultant Device Identifier Shelf Expiration Date Model / Serial / Lot [id number] Stent Biliary Zimmon 7fr 4cm Taper Tip Polyethe Acpt .035in - [id number] Implanted:Qty: 1 on 10/04/2022 by Brent Schumacher MD at [facility] Explanted:Qty: 1 on 09/21/2023 at [facility] Stent [employer] [id number] 01/26/2025 [id number] / / [id number] Advance Directives * Full Code (Latest Code Status on File) Date Activated Date Inactivated Comments 07/29/2024 11:47 AM * Full Code Date Activated Date Inactivated Comments 10/03/2022 9:44 PM 09/21/2023 9:08 AM Care Teams Lineman Service Or Work Dispatcher Relationship Specialty Start Date End Date Mony Bernstein MD [address] [place] [id number] PCP - General Internal Medicine 07/29/24
== END 2024-11-06 15:37 | disposition home or self-care (01) ==
LOC: HO.HGI 14:48
PROVIDERS: PCP Internal Medicine; Visit Provider Internal Medicine
DX: Z01.818 Encounter for other preprocedural examination (principal); Z12.11 Encounter for screening for malignant neoplasm of colon; K65.1 Peritoneal abscess; K86.3 Pseudocyst of pancreas; K86.0 Alcohol-induced chronic pancreatitis
CPT/HCPCS: 99212

== ENCOUNTER → 2024-11-06 14:48 | Outpatient (BNVA) | payer MEDICAID, SELFPAY | PROVIDERS: PCP Internal Medicine; Visit Provider Internal Medicine | DX: Z01.818 Encounter for other preprocedural examination (principal); K65.1 Peritoneal abscess; K86.3 Pseudocyst of pancreas; K86.0 Alcohol-induced chronic pancreatitis; T81.43XA Infection following a procedure, organ and space surgical site, initial encounter; X58.XXXA Exposure to other specified factors, initial encounter; Y93.9 Activity, unspecified; Y92.9 Unspecified place or not applicable; Y99.9 Unspecified external cause status; Z98.890 Other specified postprocedural states | CPT/HCPCS: 99212 ==

== ENCOUNTER 2024-12-04 19:16 | Emergency (ER) | payer MEDICAID, SELFPAY ==
--- NOTE | ~2024-12-04 | US_ITS ---
CLINICAL HISTORY: RUQ drain. check placement US abdomen limited Comparison: US/SR - US ABDOMEN LIMITED - 07/28/24 23:16 EST Findings: There is a echogenic drain identified in the abdomen which extends into the region of the gallbladder fossa, Although direct delineation on ultrasound is difficult. No dilated gallbladder seen. IMPRESSION: Echogenic drain in the right upper quadrant, which is visualized in the region of the gallbladder fossa, although visualization is suboptimal. This document has been electronically signed by: Pastor Mcmanus MD on 12/04/2024 21:09:53
--- NOTE | ~2024-12-04 | CT_ITS ---
CLINICAL HISTORY: cholecystostomy question displacement. CT abdomen without contrast Comparison: CT/SR - CT ABDOMEN PELVIS W IV CON - 07/28/24 17:31 EST Findings: No consolidation or effusion. The cholecystostomy tube side holes are located outside of the bladder. Calcifications throughout the pancreas indicating chronic pancreatitis. The liver, kidneys, spleen, and adrenals are normal. No bowel obstruction, pneumoperitoneum, or pneumatosis. IVC filter appropriately positioned in the infrarenal IVC. The bones are intact. IMPRESSION: 1. The cholecystostomy tube side holes are located outside of the bladder. 2. Chronic pancreatitis. This document has been electronically signed by: Jamal Larson MD on 12/04/2024 23:41:26
[2024-12-04 19:32] VITALS: BP 111/75; PULSE 77; RESP 18; TEMP 37.2; O2SAT 97; BMI 20.2
--- NOTE | 2024-12-04 19:32 | ED.ABDPAIN ---
HPI - Abdominal Pain General Chief Complaint: General Medical Stated Complaint: drain leaking Time Seen by Provider: 12/04/24 22:35 Related Data Home Medications ?Medication ?Instructions ?Recorded ?Confirmed ogxchzmkom-fomiyfocaeqkk-uegynkec 1 tab PO Q12H PRN Pain 09/30/22 09/30/22 50 mg-325 mg-40 mg tablet cyclobenzaprine 5 mg tablet 1 tab PO Q8H PRN muscle spasm 09/30/22 09/30/22 acetaminophen 300 mg-codeine 30 mg 1 tab PO Q8H PRN pain 03/27/23 tablet atorvastatin 10 mg tablet 10 mg PO BEDTIME 03/27/23 gabapentin 600 mg tablet 600 mg PO TID 03/27/23 ibuprofen 400 mg tablet 400 mg PO Q8H PRN 03/27/23 omeprazole 40 mg capsule,delayed 40 mg PO BID 11/06/24 release Previous Rx's ?Medication ?Instructions ?Recorded docusate sodium 100 mg capsule 200 mg (2 x 100 mg) PO DAILY #20 10/03/22 (Colace) caps cqjznt-dgwsdnkl-ebwpqly 1 cap PO TIDWM #60 caps 10/03/22 24,000-76,000-120,000 unit capsule,delayed rel (Creon) magnesium hydroxide 400 mg/5 mL 30 ml PO DAILY PRN Constipation 10/03/22 oral suspension (Milk of Magnesia) #355 mL polyethylene glycol 3350 17 gram 17 g PO DAILY #30 ea 10/03/22 oral powder packet Allergies Allergy/AdvReac Type Severity Reaction Status Date / Time No Known Allergies Allergy Verified 12/04/24 19:34 [facility] Past Medical History Medical History Pancreatitis GERD (gastroesophageal reflux disease) Pancreatitis Surgical History History of mandibular surgery H/O left wrist surgery History of hip surgery Social History Social History Household Members: Significant Other Housing: Apartment Do you presently have visiting nurse or other home services: No Alcohol intake: never Patient Tobacco Use Status: Former Tobacco user Tobacco use type: Cigarette e-Cigarette/Vaping Use: Never Used Second Hand Smoke Exposure: No Substance Use Type: Marijuana Advance Directives: No Advance Directives Information Provided: No Do you have a plan to hurt others: No Plan service: No Current occupational status: disabled Physical Exam ED Vital Signs: Vital Signs - 24 hr 12/04/24 19:32 12/04/24 22:15 12/04/24 23:39 Temperature 98.9 F 97.9 F 97.9 F Pulse Rate 77 59 59 Respiratory Rate 18 16 16 Blood Pressure 111/75 117/81 117/81 Pulse Oximetry 97 97 97 Oxygen Delivery Method Room Air Room Air Room Air BMI result Body Mass Index 20.2 Course Course Course Narrative: This is a Rapid Medical Exam performed in triage by Elsa Lee PA-C. Full HPI, ROS and PE to be performed by primary ED provider. 54 yo M presenting to the ED c/o drainage around gallbladder drain x1 mos. States drain is wetting clothes. +pain at site x today, denies fever. Drain was placed a few months ago per patient at [facility] (has had multiple drains - one placed at [facility] that came out) PE: abdomen soft + drain intact to RUQ with soaked dressing. Drain appears dislodged Plan: Labs, ultrasound Medical Decision Making Medical Decision Making MDM Narrative: 54 male with chronically draining percutaneous biliary drain outside of the skin. The tube itself is effectively draining but there is some constant steady biliary leak. No pus. The ostomy site is clean no erythema. The patient has no infectious symptomatology or abdominal tenderness. I offered to place sutures to slightly tight in the tube but he declined. We do not have Interventional Radiology on-call. He is falling at [facility] for definitive cholecystectomy in this summer. Does not appear acutely ill you certainly not jaundiced. Patient declines any additional testing I have asked him to contact the team he was intended to follow up with at [facility]. ___ CT reveals bile drain with holes outside of the gallbladder per Radiology. This is probably chronic given the chronicity of the percutaneous bile drain. There is no signs of acute infection there was no reported ascites or abdominal wall collection to indicate admission or other emergent consultation. Offered to stay overnight to see IR in the morning possibly. Gave consultation outpatient numbers for Interventional Radiology or have him call [facility] given that is where he is following up for definitive care. Provided dressing care Lab Data 12/04/24 19:41 12/04/24 19:41 Labs: Lab Results 12/04/24 Range/Units 19:41 WBC 10.8 (4.8-10.8) X10*3/uL RBC 5.13 D (4.60-5.80) X10*6/uL Hgb 14.7 D (14.0-18.0) g/dl Hct 42.5 (42.0-52.0) % MCV 82.8 (80.0-98.0) fL MCH 28.7 (27.0-33.0) pg MCHC 34.6 (31.0-36.0) g/dl RDW 17.5 H (11.0-16.0) % Plt Count 327 D (160-400) X10*3/uL MPV 9.4 (9.4-12.4) fL Immature Gran % (Auto) 0.2 (0.0-0.4) % Neut % (Auto) 67.2 (45-73) % Lymph % (Auto) 24.3 (20-40) % [place] % (Auto) 4.9 (2-11) % Eos % (Auto) 3.1 (0-4) % Baso % (Auto) 0.3 (0-2) % Lymph # (Auto) 2.6 (1.2-4.9) X10*3/uL [place] # (Auto) 0.5 (0.1-1.2) X10*3/uL Eos # (Auto) 0.3 (0.0-0.4) X10*3/uL Baso # (Auto) 0.0 (0.0-0.2) X10*3/uL Abs Immat Gran (auto) 0.02 (0.00-0.03) X10*3/uL Absolute Neuts (auto) 7.2 (2.0-8.3) x10*3/uL Absolute Nucleated RBC 0.000 (0.0-0.012) X10*3/uL Nucleated RBC % (auto) 0.0 (0.0-0.2) /100WBC Sodium 139 (135-145) mmol/L Potassium 4.0 (3.3-5.1) mmol/L Chloride 106 (96-108) mmol/L Carbon Dioxide 26 (22-29) mmol/L Anion Gap 11 L (12-20) BUN 8 L (9-16) mg/dL Creatinine 0.68 (0.5-1.4) mg/dL Estim Creat Clear Calc 101.9 Estimated GFR > 60 Random Glucose 108 (60-115) mg/dL Calcium 9.4 (8.4-10.2) mg/dL Magnesium 1.9 (1.6-2.6) mg/dL Total Bilirubin 0.2 (0.0-1.0) mg/dL Direct Bilirubin < 0.2 (0.0-0.5) mg/dL AST 18 (5-37) U/L ALT 9 (0-40) U/L Alkaline Phosphatase 118 H (39-117) U/L Total Protein 7.1 (6.5-8.0) g/dL Albumin 4.0 (3.5-5.0) g/dL Lipase 52 (8-78) U/L Medications Administered Discontinued Medications Generic Name Dose Route Start Last Admin Trade Name Freq PRN Reason Stop Dose Admin Iohexol 85 ml 12/04/24 22:18 12/04/24 22:18 Iohexol 350 Mg/Ml 100 Ml Infus..Btl IV 12/04/24 22:19 85 ml ONCE ONE Administration Discharge Plan Discharge Clinical Impression: History of insertion of cholecystostomy tube Patient Disposition: Home, Self-Care Instructions: Endoscopic Biliary Stent Placement (DC) Additional Instructions: call the number below for Radiology to discuss the issues you are having with your biliary drain. Interventional radiologist as a type of proceduralist who does this procedure and may need to trouble shoot or replace your tube Prescriptions: No Action ysojehthry-mlllhzehegvix-ikmh 50-325-40 mg tablet 1 tab PO Q12H PRN (Reason: Pain) cyclobenzaprine 5 mg tablet 1 tab PO Q8H PRN (Reason: muscle spasm) polyethylene glycol 3350 17 gram Powder In Packet 17 g PO DAILY Qty: 30 0RF magnesium hydroxide [Milk of Magnesia] 400 mg/5 mL Suspension 30 ml PO DAILY PRN (Reason: Constipation) Qty: 355 0RF Creon 24,000-76,000 -120,000 unit Capsule,Delayed Release(Dr/Ec) 1 cap PO TIDWM Qty: 60 0RF docusate sodium [Colace] 100 mg capsule 200 mg PO DAILY Qty: 20 0RF omeprazole 40 mg capsule,delayed release(DR/EC) 40 mg PO BID atorvastatin 10 mg tablet 10 mg PO BEDTIME acetaminophen-codeine 300-30 mg tablet 1 tab PO Q8H PRN (Reason: pain) ibuprofen 400 mg tablet 400 mg PO Q8H PRN gabapentin 600 mg tablet 600 mg PO TID Referrals: [facility] [Provider Group] - 2 days ( Call this office for follow up with the interventional radiologist as you may need trouble shooting or replacement of your biliary tube until your surgery takes place [phone]) Interventions: ED Discharge Assessment Last Done: 12/04/24 23:39 Discharge Date/Time: 12/04/24 23:40 Print Language: Wolof
[2024-12-04 19:45] LABS: MANUAL DIFF FLAG NO
[2024-12-04 19:46] LABS: Basophils Percent Auto 0.3 % (0-2); Eosinophils Absolute Auto 0.3 X10*3/uL (0.0-0.4); Eosinophils Percent Auto 3.1 % (0-4); Hematocrit 42.5 % (42.0-52.0); Hemoglobin 14.7 g/dl (14.0-18.0); Imm Gran Abs Auto 0.02 X10*3/uL (0.00-0.03); Imm Gran Pct Auto 0.2 % (0.0-0.4); Lymphocytes Absolute Auto 2.6 X10*3/uL (1.2-4.9); Lymphocytes Percent Auto 24.3 % (20-40); Mean Corpuscular HGB Conc 34.6 g/dl (31.0-36.0); Mean Corpuscular Hemoglobin 28.7 pg (27.0-33.0); Mean Corpuscular Volume 82.8 fL (80.0-98.0); Mean Platelet Volume 9.4 fL (9.4-12.4); Monocytes Absolute Auto 0.5 X10*3/uL (0.1-1.2); Monocytes Percent Auto 4.9 % (2-11); Neutrophils Absolute Auto 7.2 x10*3/uL (2.0-8.3); Neutrophils Percent Auto 67.2 % (45-73); Platelet Count 327 X10*3/uL (160-400); Red Blood Count 5.13 X10*6/uL (4.60-5.80); Red Cell Distribution Width 17.5 % (11.0-16.0); White Blood Count 10.8 X10*3/uL (4.8-10.8)
[2024-12-04 20:01] LABS: Alanine Aminotransferase 9 U/L (0-40); Alkaline Phosphatase 118 U/L (39-117); Anion Gap 11 (12-20); Aspartate Amino Transferase 18 U/L (5-37); Bilirubin Direct < 0.2 mg/dL (0.0-0.5); Bilirubin Total 0.2 mg/dL (0.0-1.0); Blood Urea Nitrogen 8 mg/dL (9-16); Calcium 9.4 mg/dL (8.4-10.2); Carbon Dioxide 26 mmol/L (22-29); Chloride 106 mmol/L (96-108); Creatinine Clr Calc Pharmacy 101.9; Estimated Glomerular Filt Rate > 60; Glucose Random 108 mg/dL (60-115); Lipase 52 U/L (8-78); Magnesium 1.9 mg/dL (1.6-2.6); Sodium 139 mmol/L (135-145); Total Protein 7.1 g/dL (6.5-8.0)
[2024-12-04 22:15] VITALS: BP 117/81; PULSE 59; RESP 16; TEMP 36.6; O2SAT 97
[2024-12-04] MEDS: iohexoL 350 MG/ML 100 ML INFUS..BTL 85 ML IV (22:18)
--- OUTSIDE RECORDS SUMMARY | 2024-12-04 22:37 | XMS_ITS | Encounter Summary ---
Author Organization [facility] Address [address] [place] [address] Care Team Providers Care Blank Driller Name Role Phone Unknown Primary Care Provider [phone] Mony Bernstein MD Primary Care Provide r Encounter Details Date Type Department Care Team ([facility] st Contact Info) Description 09/15/2023 Telephone [place] [employer] [facility] [address] [place] [address] Brent Schumacher MD [address] [facility] [address] [place] [address] Social History Tobacco Use Types Packs/Day Years [...] place to sleep or slept in a retirement (including now)? No 10/04/2022 Sex and Gender Information Value Date Recorded Sex Assigned at Male 10/03/2022 9:25 PM EST Legal Sex Male 1:35 PM EST Gender Identity Male 10/03/2022 9:25 PM EST Sexual Orientation Choose not to disclose 2022 9:02 PM EST documented as of this encounter Functional Status * Audit-C Score Answer Date of Assessment Author 0 09/18/2023 8:23 AM Anette Jhaveri RN * Question Answer Date of Assessment Author Q1: How often do you have a drink containing alcohol? Never 09/18/2023 8:23 AM Anette Jhaveri RN Q2: How many drinks containing alcohol do you have on a typical day when you are drinking? Patient does not drink 09/18/2023 8:23 AM Anette Jhaveri RN Q3: How often do you have six or more drinks on one occasion? Never 09/18/2023 8:23 AM Anette Jhaveri, [place] documented as of this encounter Miscellaneous Notes * Telephone Encounter - Ngozi Pandey - 09/15/2023 1:38 PM EST Good Afternoon, Patient has Medicaid of [facility] for insurance. I am not sure if he needs to sign a waiver. Thank you, Ngozi documented in this encounter Plan of Treatment Not on file documented as of this encounter Visit Diagnoses Not on filedocumented in this encounter Care Teams Blank Driller Relationship Specialty Start Date End Date Unknown Unknow Provider Address PCP - General 10/03/22 07/28/24 Mony Bernstein MD [address] [place] [id number] PCP - General Internal Medicine 07/29/24 documented as of this encounter
--- OUTSIDE RECORDS SUMMARY | 2024-12-04 22:37 | XMS_ITS | Encounter Summary ---
Demographics Address [address] [place] [address] Home Phone Mobile Phone Preferred Language Icelandic Marital Status Single Mu-Ism Affiliation Unknown Race Other Race Ethnic Group or Author Organization [facility] Address [address] [place] [address] Care Team Providers Care Senior Web Services Developer Name Role Phone Unknown Primary Care Provider [phone] Mony Bernstein MD Primary Care Provide r Encounter Details Date Type Department Care Team ([facility] st Contact Info) Description 09/06/[address] [facility] [address] [phone] Gardenia Martin NM [address] [facility] [address] [place] [address] Social History Tobacco Use Types Packs/Day Years [...] duglas call. She needs to contact [facility]. Provided her with the phone number * Telephone Encounter - Gardenia Martin MA - 09/06/2023 10:43 AM EST Marlene from [facility] left message wants to schedule an appointment for patient documented in this encounter Plan of Treatment Not on file documented as of this encounter Visit Diagnoses Not on filedocumented in this encounter Care Teams Senior Web Services Developer Relationship Specialty Start Date End Date Unknown Unknow Provider Address PCP - General 10/03/22 07/28/24 Mony Bernstein MD [address] [place] [phone] PCP - General Internal Medicine 07/29/24 documented as of this encounter
--- OUTSIDE RECORDS SUMMARY | 2024-12-04 22:37 | XMS_ITS | Encounter Summary ---
Author Organization [facility] Address [address] [place] [address] Care Team Providers Care Trailer Assembler Name Role Phone Mony Bernstein MD Primary Care Provide r Reason for Visit * Reason Comments Est patient needs scheduling Encounter Details Date Type Department Care Team (Late st Contact Info) Description 08/02/2024 Telephone [facility] [address] [place] [address] Anneliese Espinoza MD [address] [facility] [address] [place], [place] [id number] Est patient needs scheduling Social History Tobacco Use Types Packs/Day Years Used Date Smoking Tobacco: Former Cigarettes 3 35 0 09/14/1987 - 09/14/2022 Alcohol Use Standard Drinks/Week Comments Not Currently 0 (1 standard drink = 0.6 oz pur e alcohol) [facility] Utilities Answer Date Recorded In the past 12 months has [employer], gas, oil, or water [employer] threatened to shut off services in your [...] any time in the past 12 m [facility], were you homeless or living in a long-term (including now)? No 07/30/2024 Sex and Gender [...] on filedocumented in this encounter Care Teams Trailer Assembler Relationship Specialty Start Date End Date Mony Bernstein MD [address] [place] [id number] PCP - General Internal Medicine 07/29/24 documented as of this encounter
--- OUTSIDE RECORDS SUMMARY | 2024-12-04 22:37 | XMS_ITS | Clinical Summary ---
Author Organization [facility] Address [address] [place] [address] Care Team Providers Care Fighting Vehicle Infantryman Name Role Phone Mony Bernstein MD Primary Care Provide r Allergies No known active allergies Medications acetaminophen- codeine (TYLENOL #3) 300-30 MG per tablet Take 1 tablet by mouth 3 times daily (every 8 hours) as needed. for pain 3 Active OMEprazole (PriLOSEC) 20 MG capsule Take 1 capsule (20 mg total) by mouth 2 (two) times a day. 3 Active gabapentin (NEURONTIN) 600 MG tablet TAKE 1 TO 2 TABLETS BY MOUTH THREE TIMES DAILY IN THE MORNING, AT NOON, AND AT BEDTIME NEEDED FOR SEVERE PAIN 3 Active buPROPion (WELLBUTRIN SR) 150 MG 12 hr tablet Take 1 tablet (150 mg total) by mouth every morning. 2 Active butalbital-светлана taminophen-caf feine (FioriCET, ESGIC) 50-325-40 mg tablet as needed. 4 Active ibuprofen (MOTRIN) 600 MG tablet TAKE 1 TABLET BY MOUTH EVERY 8 HOURS NEEDED FOR MILD PAIN FOR UP TO 10 DAYS 4 Active folic acid (FOLVITE) 1 MG tablet Take 1 tablet (1,000 mcg total) by mouth every morning. 4 Active naloxone (NARCAN) 4 mg/0.1 mL Liquid nasal spray device FOR SUSPECTED OPIOID OVERDOSE. SPRAY 0.1mL IN ONE NOSTRIL. REPEAT IN ALTERNATE NOSTRIL 2-3 MINUTES IF NEEDED. SEEK MEDICAL ATTENTION IMMEDIATELY EVEN IF PATIENT RESPONDS. 4 Active GaviLAX 17 GM/SCOOP powder every morning. 4 Active cyclobenzaprin e (FLEXERIL) 5 MG tablet Take 1 tablet (5 mg total) by mouth 3 times daily (every 8 hours) as needed for muscle spasms. Active sodium chloride (NS FLUSH) 0.9 % SolutionIndica tions:Cholecys tostomy care (HCC) 10 mL by Intracatheter route 2 (two) times a day. 60 each 11 5 Active sodium chloride (NS FLUSH) 0.9 % SolutionIndica tions:Cholecys tostomy care (HCC) 10 mL by Intracatheter route 2 (two) times a day. 60 each 5 Active Active Problems Problem Noted Date Diagnosed Date Acute cholecystitis 07/29/2024 Gallbladder perforation 07/29/2024 Pancreatic pseudocyst 10/03/2022 Intractable abdominal pain 10/03/2022 Family History Medical History Relation Name Comments [...] drink = 0.6 oz pur e alcohol) [facility] Utilities Answer Date Recorded In the past 12 months has e [employer], gas, oil, or water [employer] threatened to shut off services in your [...] any time in the past 12 m [facility], were you homeless or living in a group home (including now)? No 07/30/2024 Sex and Gender [...] Zoster (Shingles) Vaccine (1 of 2) 02/12/2022 Influenza Vaccine 02/28/2025 07/11/2024, , 05/24/2021, Additional history exists COVID-19 Vaccine Completed 07/11/2024, , 08/17/2021, Additional history exists HIV Screening Completed 07/11/2024 Medical Devices Implanted Type Area Reel Film Inspector Device Identifier Shelf Expiration Date Model / Serial / Lot Nail/Norm Nail/Norm Femur Description:4 rods and 11 pi ns left Explanted Type Area Reel Film Inspector Device Identifier Shelf Expiration Date Model / Serial / Lot [id number] Stent Biliary Zimmon 7fr 4cm Taper Tip Polyethe Acpt .035in - [id number] Implanted:Qty: 1 on 10/04/2022 by Brent Schumacher MD at [facility] Explanted:Qty: 1 on 09/21/2023 at [facility] [employer] [id number] 01/26/2025 [id number] / / [id number] Insurance [facility] Advance Directives * Full Code (Latest Code Status on File) Date Activated Date Inactivated Comments 07/29/2024 11:47 AM * Full Code Date Activated Date Inactivated Comments 10/03/2022 9:44 PM 09/21/2023 9:08 AM Care Teams Fighting Vehicle Infantryman Relationship Specialty Start Date End Date Mony Bernstein MD [address] [place] [phone] PCP - General Internal Medicine 07/29/24
[2024-12-04 23:39] VITALS: BP 117/81; PULSE 59; RESP 16; TEMP 36.6; O2SAT 97
== END 2024-12-04 23:40 | disposition home or self-care (01) ==
PROVIDERS: Physician Assistant; Emergency Provider Emergency Medicine; PCP Internal Medicine
DX: K86.1 Other chronic pancreatitis (principal); R10.11 Right upper quadrant pain; Z79.899 Other long term (current) drug therapy; Z87.891 Personal history of nicotine dependence
CPT/HCPCS: 36415; 74150; 76705; 80048; 80076; 83690; 83735; 85025; 99283; 99284; Q9967

== ENCOUNTER → 2024-12-04 19:38 | Outpatient (BNV) | payer MEDICAID, SELFPAY | PROVIDERS: PCP Internal Medicine; Visit Provider Radiology Diagnostic Radiology | DX: K86.1 Other chronic pancreatitis (principal); Z93.59 Other cystostomy status | CPT/HCPCS: 76705 ==